=== PATIENT | male | born 1960 | race Caucasian/White ===

== ENCOUNTER 2018-05-17 18:20 | Emergency (ER) | payer MEDICARE ==
[2018-05-17 19:33] LABS: Basophils % (Auto) 0.4 % (0.0-1.8); Eosinophils # (Auto) 0.3 K/mm3 (0.0-0.4); Eosinophils % (Auto) 4.3 % (0.0-4.3); Hemoglobin 15.4 gm/dl (11.8-15.2); Lymphocytes # (Auto) 1.5 K/mm3 (1.2-5.4); Lymphocytes % (Auto) 21.8 % (13.4-35.0); Mean Corpuscular HGB Conc 34 % (32-34); Mean Corpuscular Hemoglobin 31 pg (28-32); Mean Corpuscular Volume 93 fl (84-94); Monocytes # (Auto) 0.4 K/mm3 (0.0-0.8); Monocytes % (Auto) 6.6 % (0.0-7.3); Platelet Count 192 K/mm3 (140-440); Red Blood Count 4.95 M/mm3 (3.65-5.03); Red Cell Distribution Width 14.9 % (13.2-15.2)
[2018-05-17 19:49] LABS: INR 1.17 (0.87-1.13)
[2018-05-17 19:50] LABS: Partial Thromboplastin Time 35.8 Sec. (24.2-36.6)
[2018-05-17 19:59] LABS: BUN/Creatinine Ratio 8; Blood Urea Nitrogen 10 mg/dL (9-20); Calcium 8.8 mg/dL (8.4-10.2); Hemolysis Index 4
[2018-05-17 19:59] LABS: Bilirubin,Urine NEG (Negative); Blood,Urine NEG (Negative); Color,Urine Yellow (Yellow); Protein,Urine <15 mg/dL mg/dL (Negative); Urobilinogen,Urine < 2.0 mg/dL (<2.0)
--- NOTE | 2018-05-17 20:32 | Emergency Department Report ---
HPI - General Chief Complaint: High BP Time Seen by Provider: 05/17/18 19:18 - HPI HPI: 58-year-old male presents to the emergency department via EMS from home with a complaint of having elevated blood pressure "all day" despite his medications. He says that he drank a small amount of water thinking this would help with his hypertension and when it did not he called for EMS. Patient has a slight headache and also complains of some tension to the left arm and leg. He says that he has had this since he had his stroke in October 2015 that didn't leave him with some left-sided deficits and causes him to be unable to ambulate. He is on muscle relaxers for this and took half of one of his diazepam about 2 hours prior to presentation without much relief. He also has a past medical history of atrial fibrillation, hypertension, CHF, hyperlipidemia. 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 high cholesterol - Surgical History Past Surgical History?: Yes Additional Surgical History: PEG tube placement and removal - Social History Smoking Status: Former Smoker Substance Use Type: None - Medications Home Medications: Home Medications Medication Instructions Recorded Confirmed Last Taken Type Carvedilol Phosphate 12.5 mg PO Q12HR 04/10/16 02/15/18 02/14/18 History Aspirin EC [Aspirin Enteric Coated 325 mg PO QDAY #100 tablet 02/08/18 02/15/18 02/14/18 Rx TAB] Furosemide 20 mg PO DAILY #30 02/08/18 02/15/18 02/14/18 Rx Lisinopril [Zestril TAB] 40 mg PO QDAY #30 tablet 02/08/18 02/15/18 02/14/18 Rx cloNIDine [Catapres] 0.2 mg PO BID #60 tablet 02/08/18 02/15/18 02/14/18 Rx hydrALAZINE [Apresoline TAB] 50 mg PO Q8HR #90 tablet 02/08/18 02/15/18 Rx Diazepam Tab [Valium] 5 mg PO QHS PRN #10 tab 03/16/18 Unknown Rx ED Review of Systems ROS: Stated complaint: DIZZINESS/WEAKNESS Other details as noted in HPI Comment: All other systems reviewed and negative Constitutional: denies: chills, fever Eyes: denies: eye pain, eye discharge, vision change ENT: denies: ear pain, throat pain Respiratory: denies: cough, shortness of breath, wheezing Cardiovascular: denies: chest pain, palpitations Gastrointestinal: denies: abdominal pain, nausea, diarrhea Genitourinary: denies: urgency, dysuria Musculoskeletal: myalgia. denies: back pain Skin: denies: rash, lesions Neurological: headache. denies: confusion Physical Exam - Physical Exam Vital Signs: Vital Signs 05/17/18 05/17/18 05/17/18 18:44 18:45 18:49 Temperature 97.5 F L Pulse Rate 78 Respiratory 17 Rate Blood Pressure 147/118 O2 Sat by Pulse 97 98 97 Oximetry 05/17/18 05/17/18 05/17/18 19:00 19:05 19:16 Temperature Pulse Rate 76 78 Respiratory 20 17 22 Rate Blood Pressure 149/94 150/107 O2 Sat by Pulse 99 97 98 Oximetry Physical Exam: GENERAL: The patient is well-developed well-nourished. HENT: Normocephalic. Atraumatic. Patient has moist mucous membranes. EYES: Extraocular motions are intact. Pupils equal reactive to light bilaterally. No nystagmus. NECK: Supple. Trachea is midline. CHEST/LUNGS: Clear to auscultation. There is no respiratory distress noted. HEART/CARDIOVASCULAR: Regular. There is no tachycardia. There is no murmur. ABDOMEN: Abdomen is soft, nontender. Patient has normal bowel sounds. There is no abdominal distention. SKIN: Skin is warm and dry. NEURO: The patient is awake, alert, and oriented. The patient is cooperative. Patient does not appear to have any acute focal neurological deficits. He has some mild dysarthria but says that this is chronic for him. There is some left- sided weakness compared to the right but this is also chronic for this patient from previous CVA. MUSCULOSKELETAL: There is no tenderness or deformity. There is no evidence of acute injury. ED Course Vital Signs 05/17/18 05/17/18 05/17/18 18:44 18:45 18:49 Temperature 97.5 F L Pulse Rate 78 Respiratory 17 Rate Blood Pressure 147/118 O2 Sat by Pulse 97 98 97 Oximetry 05/17/18 05/17/18 05/17/18 19:00 19:05 19:16 Temperature Pulse Rate 76 78 Respiratory 20 17 22 Rate Blood Pressure 149/94 150/107 O2 Sat by Pulse 99 97 98 Oximetry ED Medical Decision Making - Lab Data Result diagrams: 05/17/18 19:20 05/17/18 19:20 - EKG Data -: EKG Interpreted by Mi EKG shows normal: sinus rhythm, axis (left axis deviation), intervals, QRS complexes, ST-T waves (anterior j point elevation, early repolarization) Rate: normal - EKG Data When compared to previous EKG there are: no significant change Interpretation: unchanged when compared t (02/21/18) - Radiology Data Radiology results: report reviewed PROCEDURE: CT HEAD/BRAIN WO CON TECHNIQUE: Computerized tomography of the head was performed without contrast material. HISTORY: Dizziness with hypertension COMPARISON: Prior CT scan of the brain 02/19/2018 FINDINGS: Brain: There is no evidence of intracranial hemorrhage. No parenchymal hemorrhage is seen. No mass lesions or mass effect is identified. No abnormal extra-axial fluid collections or masses are seen. Old lacunar infarcts are again visualized in the anterior limb of the right internal capsule, lateral aspect left basal ganglia lateral aspect left thalamus/posterior limb left internal capsule. There is also an old lacunar infarct in the left periventricular white matter. These findings are stable. There is some decreased density seen in the periventricular white matter without mass effect. This is fairly symmetric and does not exhibit any mass effect consistent with gliosis probably on the basis of microvascular disease or white matter changes of aging. Ventricles: The ventricles, sulcal pattern and fissures are prominent consistent with atrophy. Bones: No evidence of acute fracture. Paranasal sinuses: Large nodular density seen in the right maxillary sinus which is visualized on the prior study suggesting a large mucous retention cyst. There is mild mucosal thickening medially in the left maxillary sinus. Paranasal sinuses otherwise are clear. Mastoid air cells: clear IMPRESSION: Stable exam. There is evidence of atrophy and gliosis as well as old lacunar infarct. No acute intracranial abnormalities are seen. Paranasal sinus disease as described. Transcribed By: DFN Dictated By: RAINE TORRES MD Electronically Authenticated By: RAINE TORRES MD Signed Date/Time: 05/17/182024 - Medical Decision Making Patient presented with the main complaint of uncontrolled and/or elevated blood pressure. When he is pressed further, he does mention some complaint of a left- sided headache and a tension or rigidity to his left arm and left leg. The patient has a previous CVA that left him with some left-sided deficits that were previously listed as hemiparesis. He does have some movement but there is obvious weakness when compared to the right side and the patient says that this is chronic. Patient also has some mild dysarthria but is also chronic for the patient. A CT scan of the head was done secondary to his elevated blood pressure and headache but it appears as a stable examination without any acute bleed, shift, ischemia or any other acute process. Patient's labs were also unremarkable. He was given a single dose of hydralazine as well as a small amount of a muscle relaxer/anxiety medication. On reevaluation the patient is feeling improved and his blood pressure has come down to a much more reasonable if not normal level. He was reevaluated multiple times for multiple hours and has been stable throughout his ED course. The patient appears safe for discharge home and has been encouraged to follow up with his primary care physician. He has been instructed to return to the emergency Department with any worsening of his symptoms are any acute distress. - Differential Diagnosis TIA, Complex Migraine, tension headache, electrolyte abnormalities Critical Care Time: No Critical care attestation.: If time is entered above; I have spent that time in minutes in the direct care of this critically ill patient, excluding procedure time. ED Disposition Clinical Impression: Muscle stiffness HTN (hypertension) Qualifiers: Hypertension type: essential hypertension Qualified Code(s): I10 - Essential ( primary) hypertension Headache Qualifiers: Headache type: unspecified Headache chronicity pattern: unspecified pattern Intractability: not intractable Qualified Code(s): R51 - Headache Disposition: DC-01 TO HOME OR SELFCARE Is pt being admited?: No Condition: Stable Instructions: Acute Headache (ED), Hypertension (ED) Additional Instructions: Please follow-up with your primary care physician in the next few days. Return to the emergency Department with any worsening of your symptoms are any acute distress. Continue with all of your normal medications as previously prescribed. Try and stay away from foods that are high in salt and caffeinated products to help with your blood pressure. Continue keeping a blood pressure log. Referrals: PRIMARY CARE, [Primary Care Provider] - 2-3 Days Time of Disposition: 22:50
[2018-05-17] MEDS: NORMODYNE IV ONE (20:48)
[2018-05-17] MEDS: ATIVAN IV ONE (20:48)
[2018-05-17 23:30] VITALS: BP 127/87
== END 2018-05-17 23:28 | disposition home or self-care (01) ==
LOC: MERGE 18:20 → ED 18:20
DX: I10 Essential (primary) hypertension (principal); R51 Headache; M62.89 Other specified disorders of muscle; J44.9 Chronic obstructive pulmonary disease, unspecified; E78.00 Pure hypercholesterolemia, unspecified; Z87.891 Personal history of nicotine dependence; Z86.73 Personal history of transient ischemic attack (TIA), and cerebral infarction without residual deficits
CPT/HCPCS: 36415; 70450; 80048; 81001; 82962; 84443; 84484; 85025; 85610; 85730; 93005; 93010; 96374; 96375; 99285; J2060

== ENCOUNTER 2018-05-19 06:33 | Emergency (ER) | payer MEDICARE ==
--- NOTE | 2018-05-19 07:22 | Emergency Department Report ---
HPI - General Chief Complaint: High BP Time Seen by Provider: 05/19/18 07:04 - HPI HPI: 58 year-old male presents to the emergency department with a complaint of elevated blood pressure this morning. The patient has a history of hypertension, CHF, hyperlipidemia, paroxysmal atrial fibrillation and a previous CVA with left-sided deficits. Patient is on a total of 6 blood pressure medications which he says he takes compliantly. He woke up this morning at 5 AM and took his lisinopril and shortly afterwards checked his blood pressure and found it to be systolic 210. She then took his Catapres and continue to check his blood pressure but it did not go down for him so he called EMS. He denies any chest pain, headache, nausea, vomiting or any other current physical complaints. He does have some residual left-sided deficits and is currently getting physical therapy but uses a wheelchair for mobility. He says that he has a primary care physician but he usually is only able to see the nurse practitioner and does not feel that they are evaluating his hypertension appropriately. ED Past Medical Hx - Past Medical History Hx Hypertension: Yes Hx CVA: Yes Hx Diabetes: No Hx Renal Disease: No Hx Arthritis: Yes Hx Seizures: No Hx Asthma: No - Surgical History Hx Pacemaker: No - Social History Smoking Status: Unknown if ever smoked ED Review of Systems ROS: Stated complaint: HIGH B/P Other details as noted in HPI Comment: All other systems reviewed and negative Constitutional: denies: chills, fever Eyes: denies: eye pain, eye discharge, vision change ENT: denies: ear pain, throat pain Respiratory: denies: cough, shortness of breath, wheezing Cardiovascular: denies: chest pain, palpitations Gastrointestinal: denies: abdominal pain, nausea, diarrhea Genitourinary: denies: urgency, dysuria Musculoskeletal: denies: back pain, joint swelling, arthralgia Skin: denies: rash, lesions Neurological: denies: headache, weakness, paresthesias Physical Exam - Physical Exam Vital Signs: Vital Signs 05/19/18 07:07 Temperature 97.8 F Pulse Rate 75 Respiratory 16 Rate Blood Pressure 149/88 [Right] O2 Sat by Pulse 98 Oximetry ED Course Vital Signs 05/19/18 07:07 Temperature 97.8 F Pulse Rate 75 Respiratory 16 Rate Blood Pressure 149/88 [Right] O2 Sat by Pulse 98 Oximetry ED Medical Decision Making - Lab Data Result diagrams: 05/19/18 07:25 05/19/18 07:22 Critical care attestation.: If time is entered above; I have spent that time in minutes in the direct care of this critically ill patient, excluding procedure time. ED Disposition Clinical Impression: Hypertension Qualifiers: Hypertension type: essential hypertension Qualified Code(s): I10 - Essential ( primary) hypertension Disposition: - TO HOME OR SELFCARE Is pt being admited?: No Condition: Stable Instructions: Hypertension (ED) Additional Instructions: Please continue with all of your blood pressure medications. I have given you multiple different primary care referrals to establish care and for evaluation of your hypertension and medications. Return to the emergency Department with any worsening of your symptoms or any acute distress. Referrals: GRICELDA SHAH MD [Staff Physician] - 3-5 Days JANA HOUSE MD [Staff Physician] - 3-5 Days DAVID MOSLEY MD [Staff Physician] - 3-5 Days Time of Disposition: 08:27
[2018-05-19 07:27] LABS: Bilirubin,Urine NEG (Negative); Blood,Urine NEG (Negative); Color,Urine Yellow (Yellow); Protein,Urine <15 mg/dL mg/dL (Negative); Urobilinogen,Urine < 2.0 mg/dL (<2.0); WBC,Urine < 1.0 /HPF (0.0-6.0)
[2018-05-19 07:49] LABS: Basophils % (Auto) 0.4 % (0.0-1.8); Eosinophils # (Auto) 0.4 K/mm3 (0.0-0.4); Eosinophils % (Auto) 6.1 % (0.0-4.3); Hemoglobin 14.7 gm/dl (11.8-15.2); Lymphocytes # (Auto) 1.6 K/mm3 (1.2-5.4); Lymphocytes % (Auto) 26.6 % (13.4-35.0); Mean Corpuscular HGB Conc 34 % (32-34); Mean Corpuscular Hemoglobin 32 pg (28-32); Mean Corpuscular Volume 92 fl (84-94); Monocytes # (Auto) 0.5 K/mm3 (0.0-0.8); Monocytes % (Auto) 8.6 % (0.0-7.3); Platelet Count 196 K/mm3 (140-440); Red Blood Count 4.67 M/mm3 (3.65-5.03); Red Cell Distribution Width 14.7 % (13.2-15.2)
[2018-05-19 07:56] LABS: BUN/Creatinine Ratio 8; Blood Urea Nitrogen 10 mg/dL (9-20); Calcium 9.2 mg/dL (8.4-10.2); Hemolysis Index 23
[2018-05-19] MEDS ORDERED: NORVASC PO ONE (08:04)
[2018-05-19 09:38] VITALS: BP 163/88
== END 2018-05-19 08:52 | disposition home or self-care (01) ==
LOC: ED 06:33
DX: I10 Essential (primary) hypertension (principal); M19.90 Unspecified osteoarthritis, unspecified site; Z86.73 Personal history of transient ischemic attack (TIA), and cerebral infarction without residual deficits
CPT/HCPCS: 36415; 80048; 81001; 85025; 99283

== ENCOUNTER 2018-05-20 10:02 | Emergency (ER) | payer MEDICARE ==
--- NOTE | 2018-05-20 10:42 | Emergency Department Report ---
ED General Adult HPI - General Stated complaint: [address] - History of Present Illness Initial comments: This is a 58-year-old male who states that he is in independent living. He states he is able to ambulate and go to the bathroom with the assistance of a walker. This is his third emergency department visit in less than a week. He was seen for elevated blood pressure. He did complain of increasing left sided stiffness so he had a CT of the head obtained on 05/17/2018 with the following report: PROCEDURE: CT HEAD/BRAIN WO CON TECHNIQUE: Computerized tomography of the head was performed without contrast material. HISTORY: Dizziness with hypertension COMPARISON: Prior CT scan of the brain 02/19/2018 FINDINGS: Brain: There is no evidence of intracranial hemorrhage. No parenchymal hemorrhage is seen. No mass lesions or mass effect is identified. No abnormal extra-axial fluid collections or masses are seen. Old lacunar infarcts are again visualized in the anterior limb of the right internal capsule, lateral aspect left basal ganglia lateral aspect left thalamus/posterior limb left internal capsule. There is also an old lacunar infarct in the left periventricular white matter. These findings are stable. There is some decreased density seen in the periventricular white matter without mass effect. This is fairly symmetric and does not exhibit any mass effect consistent with gliosis probably on the basis of microvascular disease or white matter changes of aging. Ventricles: The ventricles, sulcal pattern and fissures are prominent consistent with atrophy. Bones: No evidence of acute fracture. Paranasal sinuses: Large nodular density seen in the right maxillary sinus which is visualized on the prior study suggesting a large mucous retention cyst. There is mild mucosal thickening medially in the left maxillary sinus. Paranasal sinuses otherwise are clear. Mastoid air cells: clear IMPRESSION: Stable exam. There is evidence of atrophy and gliosis as well as old lacunar infarct. No acute intracranial abnormalities are seen. Paranasal sinus disease as described. Thus, the patient was not suspected of having any acute finding on the basis of this CT and his history. His history today appears to be reasonably equivalent to prior visit. He states that his chief complaint is increasing stiffness of the entire left side and problems with sensation. He states he has "never had this before". However, he admits that he has had this very same problem at least for 1 year. He states he has been treated with muscle relaxers for the same before. He may be referring to diazepam which I note that he has previously been prescribed. I cannot identify an acute complaint despite the patient's stating "I have never had this before". He also admits that he is status post a CVA affecting his left side since 2014. He has received physical therapy in the past. He states that since he got Social Security his Medicaid stopped paying for home health care. At this time he states that he has no home health care. In fact, I cannot identify any acute symptom either for his presentation today or on complete review of systems which she essentially denies anything beyond the left scott-corporal sensory and stiffness complaint which apparently is not acute. The patient denies any history of prior DVT involving his left side. He states that he has seen a sustainability project manager at [facility] within the last month for a stress test which she states was normal. -: unknown (very variable history but certainly not acute variable history but non-acute) Location: left (entire left side) - Related Data Home Medications Medication Instructions Recorded Confirmed Last Taken Carvedilol Phosphate 12.5 mg PO Q12HR 04/10/16 02/15/18 02/14/18 Previous Rx's Medication Instructions Recorded Last Taken Type Aspirin EC [Aspirin Enteric Coated 325 mg PO QDAY #100 tablet 02/08/18 02/14/18 Rx TAB] Furosemide 20 mg PO DAILY #30 02/08/18 02/14/18 Rx Lisinopril [Zestril TAB] 40 mg PO QDAY #30 tablet 02/08/18 02/14/18 Rx cloNIDine [Catapres] 0.2 mg PO BID #60 tablet 02/08/18 02/14/18 Rx hydrALAZINE [Apresoline TAB] 50 mg PO Q8HR #90 tablet 02/08/18 02/14/18 Rx Diazepam Tab [Valium] 5 mg PO QHS PRN #10 tab 03/16/18 Unknown Rx Cyclobenzaprine HCl [Flexeril 5 MG 5 mg PO Q12H PRN #14 tablet 05/20/18 Unknown Rx TAB] Allergies Allergy/AdvReac Type Severity Reaction Status Date / Time No Known Allergies Allergy Verified 05/19/18 07:01 ED Review of Systems ROS: Stated complaint: [address] Other details as noted in HPI Constitutional: denies: chills, fever Eyes: denies: eye pain, eye discharge, vision change ENT: denies: ear pain, throat pain Respiratory: denies: cough, shortness of breath, wheezing Cardiovascular: denies: chest pain, palpitations Endocrine: no symptoms reported Gastrointestinal: denies: abdominal pain, nausea, diarrhea Genitourinary: denies: urgency, dysuria Musculoskeletal: other (left sided stiffness). denies: back pain, joint swelling, arthralgia Skin: denies: rash, lesions Neurological: other (chronic decreased sensation left side). 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 high cholesterol - Surgical History Hx Pacemaker: No Additional Surgical History: PEG tube placement and removal - Social History Smoking Status: Former Smoker - Medications Home Medications: Home Medications Medication Instructions Recorded Confirmed Last Taken Type Carvedilol Phosphate 12.5 mg PO Q12HR 04/10/16 02/15/18 02/14/18 History Aspirin EC [Aspirin Enteric Coated 325 mg PO QDAY #100 tablet 02/08/18 02/15/18 02/14/18 Rx TAB] Furosemide 20 mg PO DAILY #30 02/08/18 02/15/18 02/14/18 Rx Lisinopril [Zestril TAB] 40 mg PO QDAY #30 tablet 02/08/18 02/15/18 02/14/18 Rx cloNIDine [Catapres] 0.2 mg PO BID #60 tablet 02/08/18 02/15/18 02/14/18 Rx hydrALAZINE [Apresoline TAB] 50 mg PO Q8HR #90 tablet 02/08/18 02/15/18 Rx Diazepam Tab [Valium] 5 mg PO QHS PRN #10 tab 03/16/18 Unknown Rx Cyclobenzaprine HCl [Flexeril 5 MG 5 mg PO Q12H PRN #14 tablet 05/20/18 Unknown Rx TAB] ED Physical Exam - General General appearance: alert, in no apparent distress - Head Head exam: Present: atraumatic, normocephalic - Eye Eye exam: Present: normal appearance, PERRL, EOMI. Absent: scleral icterus - ENT ENT exam: Present: mucous membranes moist - Neck Neck exam: Present: normal inspection. Absent: tenderness, meningismus - Respiratory Respiratory exam: Present: normal lung sounds bilaterally. Absent: respiratory distress - Cardiovascular Cardiovascular Exam: Present: regular rate, normal rhythm. Absent: systolic murmur, diastolic murmur, rubs, gallop - GI/Abdominal GI/Abdominal exam: Present: soft, normal bowel sounds. Absent: distended, tenderness, guarding, rebound, rigid - Rectal Rectal exam: Present: deferred - Extremities Exam Extremities exam: Present: normal capillary refill, other (patient does have some contracture/atrophy/edema of the left arm and left leg. There is no tenderness to palpation. Vascular exam was intact.). Absent: full ROM, calf tenderness - Back Exam Back exam: Present: normal inspection - Neurological Exam Neurological exam: Present: alert, oriented X3, motor sensory deficit (4 out of 5 left hemiparesis, there is drift both upper and lower, there is some dysmetria on left finger nose. There is chronic decreased sensation of the lumbar and lower left extremity), other. Absent: CN II-XII intact (partial left facial paresis) - Psychiatric Psychiatric exam: Present: normal mood, flat affect - Skin Skin exam: Present: warm, dry, intact, normal color. Absent: rash ED Course Vital Signs 05/20/18 05/20/18 05/20/18 10:16 10:30 10:42 Temperature 98.0 F Pulse Rate 90 Respiratory 20 Rate Blood Pressure 140/65 127/68 O2 Sat by Pulse 94 93 92 Oximetry - Reevaluation(s) Reevaluation #1: The patient's NIH stroke score is 0 pertaining to acute findings. He does have chronic deficits which do not yield any acute score. I do not believe he is candidate for repeat imaging at this time as this has been recently done and his complaints are completely non-acute. 05/20/18 11:22 Reevaluation #2: I will proceed again with a general medical workup of this patient. I will get a case management consult. 05/20/18 11:26 Reevaluation #3: Patient has been seen by case management. They will further explore his case. I did not find any acute indications for admission. The patient is encouraged to follow up with her primary care provider. Will give him some Flexeril for his symptoms of stiffness. 05/20/18 14:24 ED Medical Decision Making - Lab Data Result diagrams: 05/20/18 11:31 05/20/18 11:31 Critical care attestation.: If time is entered above; I have spent that time in minutes in the direct care of this critically ill patient, excluding procedure time. ED Disposition Clinical Impression: Musculoskeletal pain, chronic Hemiparesis Qualifiers: Hemiparesis etiology: late effect of cerebrovascular disease Cerebrovascular disease type: other Hemiparesis laterality: left dominant side Qualified Code(s) : I69.852 - Hemiplegia and hemiparesis following other cerebrovascular disease affecting left dominant side Hypertension Qualifiers: Hypertension type: essential hypertension Qualified Code(s): I10 - Essential ( primary) hypertension Disposition: - TO HOME OR SELFCARE Is pt being admited?: No Does the pt Need Aspirin: No Condition: Stable Instructions: Musculoskeletal Pain (ED), Self Care Measures After a Stroke (ED) , Hypertension (ED) Additional Instructions: As far as can be determined there is no reason for hospitalization right now. You may try Rx Flexeril for your symptoms of stiffness. It is important he follow-up with the primary care provider. Discuss your symptoms with physical therapy that you're already attending at this facility twice a week. Prescriptions: Cyclobenzaprine HCl [Flexeril 5 MG TAB] 5 mg PO Q12H PRN #14 tablet PRN Reason: muscle stiffness Referrals: PRIMARY CARE, [Primary Care Provider] - 2-3 Days Time of Disposition: 14:27
[2018-05-20 10:46] VITALS: BP 127/68
[2018-05-20 11:59] LABS: Basophils % (Auto) 0.5 % (0.0-1.8); Eosinophils # (Auto) 0.2 K/mm3 (0.0-0.4); Lymphocytes # (Auto) 1.6 K/mm3 (1.2-5.4); Lymphocytes % (Auto) 21.2 % (13.4-35.0); Mean Corpuscular HGB Conc 35 % (32-34); Mean Corpuscular Hemoglobin 32 pg (28-32); Mean Corpuscular Volume 91 fl (84-94); Monocytes # (Auto) 0.4 K/mm3 (0.0-0.8); Platelet Count 212 K/mm3 (140-440); Red Blood Count 5.59 M/mm3 (3.65-5.03); Red Cell Distribution Width 14.9 % (13.2-15.2)
[2018-05-20 12:03] LABS: Creatine Kinase MB 1.1 ng/mL (0.0-4.0)
[2018-05-20 12:05] LABS: Alanine Aminotransferase 29 units/L (7-56); Albumin 3.9 g/dL (3.9-5)
[2018-05-20 12:08] LABS: BUN/Creatinine Ratio 11; Blood Urea Nitrogen 11 mg/dL (9-20); Calcium 9.6 mg/dL (8.4-10.2); Hemolysis Index 206
[2018-05-20 12:11] LABS: INR 1.1 (0.87-1.13)
[2018-05-20 12:12] LABS: Partial Thromboplastin Time 32.5 Sec. (24.2-36.6)
[2018-05-20 12:18] LABS: Bilirubin,Direct < 0.2 mg/dL (0-0.2)
[2018-05-20 12:43] LABS: Hematocrit 47.8 % (35.5-45.6); Hemoglobin 15.5 gm/dl (11.8-15.2)
[2018-05-20 13:27] LABS: Bilirubin,Urine NEG (Negative); Blood,Urine NEG (Negative); Color,Urine Yellow (Yellow); Protein,Urine <15 mg/dL mg/dL (Negative)
== END 2018-05-20 16:30 | disposition home or self-care (01) ==
LOC: ED 10:02
DX: I10 Essential (primary) hypertension (principal); I69.852 Hemiplegia and hemiparesis following other cerebrovascular disease affecting left dominant side; M79.1 Myalgia; G89.29 Other chronic pain; M19.90 Unspecified osteoarthritis, unspecified site; J44.9 Chronic obstructive pulmonary disease, unspecified; E78.00 Pure hypercholesterolemia, unspecified; Z87.891 Personal history of nicotine dependence; Z79.82 Long term (current) use of aspirin
CPT/HCPCS: 36415; 80048; 80074; 81001; 82550; 82553; 83735; 83880; 84484; 85025; 85610; 85730

== ENCOUNTER 2018-06-02 11:42 | Emergency (ER) | payer MEDICARE ==
[2018-06-02] MEDS ORDERED: APRESOLINE IM ONE (12:57)
--- NOTE | 2018-06-02 13:00 | Emergency Department Report ---
ED General Adult HPI - General Chief complaint: Dizziness Stated complaint: DIZZINESS/ HIGH BLOOD PRESSURE Time Seen by Provider: 06/02/18 12:39 Source: patient Mode of arrival: Wheelchair Limitations: No Limitations - History of Present Illness Initial comments: Patient is a 58-year-old -[place] male who has past medical history of poorly controlled hypertension as well as CVA with left-sided deficit who is presenting for his fourth visit of this month for elevated blood pressure. Patient saw his primary care physician yesterday and was placed on a new blood pressure medicine. Patient was in physical therapy today as noted the blood pressure was approximately 200 systolic. Patient states that he has some stiffness in his left upper extremity which he states he "gets this when his blood pressure is high". The patient denies chest pain shortness of breath fevers chills nausea vomiting at this time. Patient was seen here last week had a CT of the head which showed stable exam. Review of the several notes from other emergency visits this month patient had some left upper extremity stiffness at that time as well. Patient states he is able to move and speak at his baseline. - Related Data Home Medications Medication Instructions Recorded Confirmed Last Taken Atorvastatin [Lipitor Tab] 40 mg PO QHS 05/20/18 05/20/18 05/19/18 Lisinopril [Zestril TAB] 40 mg PO QAM 05/20/18 05/20/18 05/19/18 Losartan/Hydrochlorothiazide 1 each PO DAILY 05/20/18 05/20/18 05/19/18 [Losartan-Hctz 100-25 mg Tab] Methocarbamol [Robaxin TAB] 750 mg PO BID 05/20/18 05/20/18 Unknown NIFEdipine [] 90 mg PO DAILY 05/20/18 05/20/18 04/19/18 Previous Rx's Medication Instructions Recorded Last Taken Type Furosemide 20 mg PO DAILY #30 02/08/18 05/19/18 Rx cloNIDine [Catapres] 0.2 mg PO BID #60 tablet 02/08/18 05/19/18 Rx hydrALAZINE [Apresoline TAB] 50 mg PO Q8HR #90 tablet 02/08/18 05/19/18 Rx Diazepam Tab [Valium] 5 mg PO QHS PRN #10 tab 03/16/18 05/17/18 Rx Cyclobenzaprine HCl [Flexeril 5 MG 5 mg PO Q12H PRN #14 tablet 05/20/18 Unknown Rx TAB] Ciprofloxacin HCl [Cipro] 500 mg PO BID #14 tablet 06/02/18 Unknown Rx Tamsulosin HCl [Flomax] 0.4 mg PO QHS 30 Days cap.er.24h 06/02/18 Unknown Rx Allergies Allergy/AdvReac Type Severity Reaction Status Date / Time No Known Allergies Allergy Verified 05/19/18 07:01 ED Review of Systems ROS: Stated complaint: DIZZINESS/ HIGH BLOOD PRESSURE Other details as noted in HPI Comment: All other systems reviewed and negative ED Past Medical Hx - Past Medical History Hx Hypertension: Yes Hx CVA: Yes (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 high cholesterol - Surgical History Hx Pacemaker: No Additional Surgical History: PEG tube placement and removal - Social History Smoking Status: Never Smoker Substance Use Type: None - Medications Home Medications: Home Medications Medication Instructions Recorded Confirmed Last Taken Type Furosemide 20 mg PO DAILY #30 02/08/18 05/20/18 05/19/18 Rx cloNIDine [Catapres] 0.2 mg PO BID #60 tablet 02/08/18 05/20/18 05/19/18 Rx hydrALAZINE [Apresoline TAB] 50 mg PO Q8HR #90 tablet 02/08/18 05/20/18 Rx Diazepam Tab [Valium] 5 mg PO QHS PRN #10 tab 03/16/18 05/20/18 05/17/18 Rx Atorvastatin [Lipitor Tab] 40 mg PO QHS 05/20/18 05/20/18 05/19/18 History Cyclobenzaprine HCl [Flexeril 5 MG 5 mg PO Q12H PRN #14 tablet 05/20/18 Unknown Rx TAB] Lisinopril [Zestril TAB] 40 mg PO QAM 05/20/18 05/20/18 05/19/18 History Losartan/Hydrochlorothiazide 1 each PO DAILY 05/20/18 05/20/18 05/19/18 History [Losartan-Hctz 100-25 mg Tab] Methocarbamol [Robaxin TAB] 750 mg PO BID 05/20/18 05/20/18 Unknown History NIFEdipine [] 90 mg PO DAILY 05/20/18 05/20/18 04/19/18 History Ciprofloxacin HCl [Cipro] 500 mg PO BID #14 tablet 06/02/18 Unknown Rx Tamsulosin HCl [Flomax] 0.4 mg PO QHS 30 Days cap.er.24h 06/02/18 Unknown Rx ED Physical Exam - General Limitations: No Limitations General appearance: alert, in no apparent distress - Head Head exam: Present: atraumatic, normocephalic - Eye Eye exam: Present: normal appearance - ENT ENT exam: Present: mucous membranes moist - Neck Neck exam: Present: normal inspection - Respiratory Respiratory exam: Present: normal lung sounds bilaterally. Absent: respiratory distress, wheezes, rales, rhonchi - Cardiovascular Cardiovascular Exam: Present: regular rate, normal rhythm. Absent: systolic murmur, diastolic murmur, rubs, gallop - GI/Abdominal GI/Abdominal exam: Present: soft, normal bowel sounds. Absent: distended, tenderness, guarding, rebound - Rectal Rectal exam: Present: deferred - Extremities Exam Extremities exam: Present: normal inspection - Back Exam Back exam: Present: normal inspection - Neurological Exam Neurological exam: Present: alert, oriented X3, CN II-XII intact, motor sensory deficit (patient has 4 out of 5 weakness to his left upper extremity 3 out of 5 weakness to the left lower extremity. Patient has some mild slurred speech. Both these deficits noted in previous visits.) - Psychiatric Psychiatric exam: Present: normal affect, normal mood - Skin Skin exam: Present: warm, dry, intact, normal color. Absent: rash ED Course Vital Signs 06/02/18 06/02/18 11:56 13:15 Temperature 97.8 F Pulse Rate 116 H 103 H Respiratory 18 Rate Blood Pressure 183/112 164/109 O2 Sat by Pulse 97 Oximetry ED Medical Decision Making - Lab Data Result diagrams: 06/02/18 15:52 06/02/18 15:52 - Medical Decision Making The patient's blood pressure is improving after meds here in the emergency department. After the hydralazine patient became very anxious and was stating that he was having some increased tightness in his left upper extremity which the patient has complained about for several months. Patient then stated that he wanted to try to go to the bathroom and couldn't. Patient had a small amount come out but was continuing to get more more anxious and frustrated that he couldn't urinate. Patient stayed in the bathroom for approximately an hour attempting to urinate. We decided to take the patient to a room to try to just do a straight cath and the patient had approximately 1200 mL of urine were able to drain. Patient states he is feeling much improved afterwards. Patient will be discharged home with Das catheter with urology follow-up patient will follow with his primary doctor regarding his blood pressure medicines. Critical care attestation.: If time is entered above; I have spent that time in minutes in the direct care of this critically ill patient, excluding procedure time. ED Disposition Clinical Impression: Hypertensive urgency, Urinary retention Disposition: DC- TO HOME OR SELFCARE Is pt being admited?: No Does the pt Need Aspirin: No Condition: Stable Instructions: Hypertension (ED), Urinary Retention in Men (ED), Das Catheter Placement and Care (ED) Referrals: PRIMARY CARE, [Primary Care Provider] - 3-5 Days MICHELLE TRACEY MD [Staff Physician] - 3-5 Days Time of Disposition: 17:18
[2018-06-02 13:16] VITALS: BP 164/109
[2018-06-02] MEDS ORDERED: VALIUM PO ONE (13:38)
[2018-06-02 16:09] LABS: Basophils # (Auto) 0.1 K/mm3 (0.0-0.1); Basophils % (Auto) 0.4 % (0.0-1.8); Eosinophils # (Auto) 0.2 K/mm3 (0.0-0.4); Eosinophils % (Auto) 1.3 % (0.0-4.3); Hematocrit 52.4 % (35.5-45.6); Hemoglobin 18.4 gm/dl (11.8-15.2); Lymphocytes # (Auto) 3.6 K/mm3 (1.2-5.4); Mean Corpuscular HGB Conc 35 % (32-34); Mean Corpuscular Hemoglobin 32 pg (28-32); Mean Corpuscular Volume 91 fl (84-94); Monocytes # (Auto) 0.7 K/mm3 (0.0-0.8); Monocytes % (Auto) 4.5 % (0.0-7.3); Platelet Count 282 K/mm3 (140-440); Red Blood Count 5.76 M/mm3 (3.65-5.03); Red Cell Distribution Width 14.6 % (13.2-15.2)
[2018-06-02 16:18] LABS: BUN/Creatinine Ratio 7; Blood Urea Nitrogen 8 mg/dL (9-20); Calcium 9.3 mg/dL (8.4-10.2); Hemolysis Index 10
== END 2018-06-02 17:58 | disposition home or self-care (01) ==
LOC: ED 11:42
DX: R33.9 Retention of urine, unspecified (principal); I10 Essential (primary) hypertension; M19.90 Unspecified osteoarthritis, unspecified site; J44.9 Chronic obstructive pulmonary disease, unspecified; E78.00 Pure hypercholesterolemia, unspecified; Z86.73 Personal history of transient ischemic attack (TIA), and cerebral infarction without residual deficits
CPT/HCPCS: 36415; 51702; 80048; 85025; 93005; 93010; 96372; 99284; J0360

== ENCOUNTER 2018-06-29 18:27 | Emergency (ER) | payer MEDICARE ==
[2018-06-29] MEDS ORDERED: APRESOLINE IV ONE (20:34)
[2018-06-29] MEDS ORDERED: NORMODYNE IV ONE ×2 (20:49→22:04)
--- NOTE | 2018-06-29 22:15 | Emergency Department Report ---
HPI - General Chief Complaint: High BP Time Seen by Provider: 06/29/18 20:11 - HPI HPI: The patient is a 58 male presents for evaluation of elevated blood pressure. Patient states that is instructed to present after he found have elevated blood pressure greater than 200 today. He states he is a symptomatically feels fine. The patient denies fever, neck pain, chest pain, headache, parasthesias, dyspnea , cough, hemoptysis, palpitations, dizziness, syncope, unilateral leg swelling, calf muscle pain. Patient also denies cocaine or other stimulant use, history of DVT or PE, recent immobilization, or history of cancer. 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 high cholesterol - Surgical History Hx Pacemaker: No Additional Surgical History: PEG tube placement and removal - Social History Smoking Status: Never Smoker Substance Use Type: None - Medications Home Medications: Home Medications Medication Instructions Recorded Confirmed Last Taken Type Furosemide 20 mg PO DAILY #30 02/08/18 05/20/18 05/19/18 Rx cloNIDine [Catapres] 0.2 mg PO BID #60 tablet 02/08/18 05/20/18 05/19/18 Rx hydrALAZINE [Apresoline TAB] 50 mg PO Q8HR #90 tablet 02/08/18 05/20/18 Rx diazePAM TAB [Valium] 5 mg PO QHS PRN #10 tab 03/16/18 05/20/18 05/17/18 Rx Atorvastatin [Lipitor Tab] 40 mg PO QHS 05/20/18 05/20/18 05/19/18 History Cyclobenzaprine HCl [Flexeril 5 MG 5 mg PO Q12H PRN #14 tablet 05/20/18 Unknown Rx TAB] Lisinopril [Zestril TAB] 40 mg PO QAM 05/20/18 05/20/18 05/19/18 History Losartan/Hydrochlorothiazide 1 each PO DAILY 05/20/18 05/20/18 05/19/18 History [Losartan-Hctz 100-25 mg Tab] Methocarbamol [Robaxin TAB] 750 mg PO BID 05/20/18 05/20/18 Unknown History NIFEdipine [] 90 mg PO DAILY 05/20/18 05/20/18 04/19/18 History Ciprofloxacin HCl [Cipro] 500 mg PO BID #14 tablet 06/02/18 Unknown Rx Tamsulosin HCl [Flomax] 0.4 mg PO QHS 30 Days cap.er.24h 06/02/18 Unknown Rx ED Review of Systems ROS: Stated complaint: HYPERTENSION Other details as noted in HPI Constitutional: denies: fever ENT: denies: throat or neck pain Respiratory: denies: cough, shortness of breath Cardiovascular: reports chest pain Endocrine: denies unexplained weight loss or gain Gastrointestinal: denies: abdominal pain, nausea Genitourinary: denies: dysuria Musculoskeletal: denies: leg swelling Skin: denies: rash Neurological: denies: headache Hematological/Lymphatic: denies: easy bleeding or easy bruising Psych: denies sadness or hopelessness Physical Exam - Physical Exam Vital Signs: Vital Signs 06/29/18 06/29/18 06/29/18 19:39 19:50 20:56 Temperature 98.5 F Pulse Rate 108 H 98 H Respiratory 16 17 Rate Blood Pressure 187/117 179/102 O2 Sat by Pulse 97 96 Oximetry 06/29/18 21:55 Temperature Pulse Rate 88 Respiratory Rate Blood Pressure 177/103 O2 Sat by Pulse Oximetry Physical Exam: General: well-nourished, well-developed, no acute distress Head: Normocephalic, atraumatic Eyes: normal sclera ENT: Mucous membranes are pale and dry Neck: No neck stiffness, no cervical adenopathy Respiratory: Breath sounds equal bilaterally, no wheezing, rales, or rhonchi Cardio: S1 and S2 present, no murmurs, rubs, gallops, capillary refill is delayed Abdomen: Normoactive bowel sounds, soft abdomen, no rigidity, no guarding or rebound tenderness Chest WALL/Back: No tenderness to palpation of the chest wall, no CVA tenderness with percussion Musc: No pitting edema Skin: No rash Neuro: no facial drooping, normal speech Psych: Normal affect ED Course Vital Signs 06/29/18 06/29/18 06/29/18 19:39 19:50 20:56 Temperature 98.5 F Pulse Rate 108 H 98 H Respiratory 16 17 Rate Blood Pressure 187/117 179/102 O2 Sat by Pulse 97 96 Oximetry 06/29/18 21:55 Temperature Pulse Rate 88 Respiratory Rate Blood Pressure 177/103 O2 Sat by Pulse Oximetry ED Medical Decision Making - Medical Decision Making The patient was seen and examined by myself. The patient is placed on a personnel monitor and continuous pulse ox. On initial evaluation, the patient was found to be in no distress. Evaluation orders were placed. EKG was negative for ST elevation, ST depression, Q waves, or T-wave changes concerning for acute cardiac disease process. The patient is given IV labetalol and IV hydralazine for elevated blood pressure. On reexamination the patient's blood pressure was found to decrease outside of range concerning for hypertensive emergency. The patient is stable for discharge with outpatient follow-up. The patient is given follow-up and return instructions. The patient expressed understanding and agreed with the plan. The patient is discharged in stable condition. Critical care attestation.: If time is entered above; I have spent that time in minutes in the direct care of this critically ill patient, excluding procedure time. ED Disposition Clinical Impression: Hypertensive urgency Disposition: DC-01 TO HOME OR SELFCARE Is pt being admited?: No Does the pt Need Aspirin: No Condition: Stable Instructions: Hypertension (ED), Chronic Hypertension (ED) Referrals: PRIMARY MD ASHTYN [Primary Care Provider] - 3-5 Days [facility] [Outside] - 3-5 Days Time of Disposition: 22:13
[2018-06-30 00:28] VITALS: BP 160/89
== END 2018-06-30 00:45 | disposition home or self-care (01) ==
LOC: ED 18:27
DX: I10 Essential (primary) hypertension (principal); I16.0 Hypertensive urgency; M19.90 Unspecified osteoarthritis, unspecified site; J44.9 Chronic obstructive pulmonary disease, unspecified; E78.00 Pure hypercholesterolemia, unspecified; Z86.73 Personal history of transient ischemic attack (TIA), and cerebral infarction without residual deficits
CPT/HCPCS: 93005; 93010; 96374; 96375; 96376; 99284; J0360

== ENCOUNTER 2019-04-05 10:13 | Outpatient (CLI) | payer MEDICARE ==
[2019-04-05 11:12] LABS: Hematocrit 47.2 % (35.5-45.6); Hemoglobin 16.1 gm/dl (11.8-15.2); Mean Corpuscular HGB Conc 34 % (32-34); Mean Corpuscular Volume 92 fl (84-94); Platelet Count 212 K/mm3 (140-440); Red Blood Count 5.15 M/mm3 (3.65-5.03); Red Cell Distribution Width 14.2 % (13.2-15.2)
[2019-04-05 11:30] LABS: Alanine Aminotransferase 22 units/L (7-56); Albumin 3.9 g/dL (3.9-5); BUN/Creatinine Ratio 8; Blood Urea Nitrogen 9 mg/dL (9-20); Calcium 9.1 mg/dL (8.4-10.2); HDL Cholesterol 44 mg/dL (40-59); Hemolysis Index 3; LDL Cholesterol,Direct 46 mg/dL (50-130)
[2019-04-08 12:56] LABS: Vitamin D, 25-OH, D2 <4 ng/mL
== END 2019-04-05 10:14 | disposition home or self-care (01) ==
LOC: LAB 10:13
PROVIDERS: ATTEND Internal Medicine
DX: Z13.220 Encounter for screening for lipoid disorders (principal); Z13.21 Encounter for screening for nutritional disorder; R73.9 Hyperglycemia, unspecified; I10 Essential (primary) hypertension; J44.9 Chronic obstructive pulmonary disease, unspecified
CPT/HCPCS: 36415; 80053; 80061; 82306; 82607; 83036; 84443; 85027

== ENCOUNTER 2019-06-03 08:47 | Emergency (ER) | payer MEDICARE ==
[2019-06-03] MEDS ORDERED: NACL 0.9% 1000 ML 1,000 ML IV ONE (09:09)
[2019-06-03 09:47] LABS: Basophils % (Auto) 0.3 % (0.0-1.8); Eosinophils # (Auto) 0.1 K/mm3 (0.0-0.4); Eosinophils % (Auto) 1.2 % (0.0-4.3); Hematocrit 49.6 % (35.5-45.6); Hemoglobin 16.7 gm/dl (11.8-15.2); Lymphocytes % (Auto) 14.1 % (13.4-35.0); Mean Corpuscular HGB Conc 34 % (32-34); Mean Corpuscular Volume 92 fl (84-94); Monocytes # (Auto) 0.3 K/mm3 (0.0-0.8); Monocytes % (Auto) 4.7 % (0.0-7.3); Platelet Count 243 K/mm3 (140-440); Red Cell Distribution Width 14.3 % (13.2-15.2)
--- NOTE | 2019-06-03 09:52 | Emergency Department Report ---
ED General Adult HPI - General Chief complaint: High BP Stated complaint: STROKE Time Seen by Provider: 06/03/19 09:04 Source: EMS Mode of arrival: Ambulatory Limitations: No Limitations - History of Present Illness Initial comments: Patient presents to the emergency department with a chief complaint elevated blood pressure. Patient states he woke up at 3:30 this morning and limited his blood pressure he knows that it was elevated. Patient has not taken his blood pressure medicines this morning before checking his blood pressure. Patient also complains of some numbness/tingling in his left leg she states is due to nerve damage in that leg. Patient also has some slurred speech on exam but patient states this is residual from her prior stroke as well as his left upper extremity weakness. Patient denies chest pain, as above, abdominal pain. -: Sudden Severity scale (0 -10): 0 Improves with: none Worsens with: none Associated Symptoms: denies other symptoms Treatments Prior to Arrival: none - Related Data Home Medications Medication Instructions Recorded Confirmed Last Taken Atorvastatin [Lipitor Tab] 40 mg PO QHS 05/20/18 05/20/18 05/19/18 Lisinopril [Zestril TAB] 40 mg PO QAM 05/20/18 05/20/18 05/19/18 Losartan/Hydrochlorothiazide 1 each PO DAILY 05/20/18 05/20/18 05/19/18 [Losartan-Hctz 100-25 mg Tab] NIFEdipine [] 90 mg PO DAILY 05/20/18 05/20/18 04/19/18 methOCARBAMOL [Robaxin TAB] 750 mg PO BID 05/20/18 05/20/18 Unknown Previous Rx's Medication Instructions Recorded Last Taken Type Furosemide 20 mg PO DAILY #30 02/08/18 05/19/18 Rx cloNIDine [Catapres] 0.2 mg PO BID #60 tablet 02/08/18 05/19/18 Rx hydrALAZINE [Apresoline TAB] 50 mg PO Q8HR #90 tablet 02/08/18 05/19/18 Rx diazePAM TAB [Valium] 5 mg PO QHS PRN #10 tab 03/16/18 05/17/18 Rx Cyclobenzaprine HCl [Flexeril 5 MG 5 mg PO Q12H PRN #14 tablet 05/20/18 Unknown Rx TAB] Ciprofloxacin HCl [Cipro] 500 mg PO BID #14 tablet 06/02/18 Unknown Rx Tamsulosin HCl [Flomax] 0.4 mg PO QHS 30 Days cap.er.24h 06/02/18 Unknown Rx Allergies Allergy/AdvReac Type Severity Reaction Status Date / Time No Known Allergies Allergy Verified 05/19/18 07:01 ED Review of Systems ROS: Stated complaint: STROKE Other details as noted in HPI Constitutional: denies: chills, fever Eyes: denies: eye pain, eye discharge, vision change ENT: denies: ear pain, throat pain Respiratory: denies: cough, shortness of breath, wheezing Cardiovascular: denies: chest pain, palpitations Endocrine: no symptoms reported Gastrointestinal: denies: abdominal pain, nausea, diarrhea Genitourinary: denies: urgency, dysuria Musculoskeletal: denies: back pain, joint swelling, arthralgia Skin: denies: rash, lesions Neurological: denies: headache, weakness, paresthesias Psychiatric: denies: anxiety, depression Hematological/Lymphatic: denies: easy bleeding, easy bruising ED Past Medical Hx - Past Medical History Hx Hypertension: Yes Hx CVA: Yes (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 high cholesterol - Surgical History Hx Pacemaker: No Additional Surgical History: PEG tube placement and removal - Social History Smoking Status: Former Smoker Substance Use Type: None - Medications Home Medications: Home Medications Medication Instructions Recorded Confirmed Last Taken Type Furosemide 20 mg PO DAILY #30 02/08/18 05/20/18 05/19/18 Rx cloNIDine [Catapres] 0.2 mg PO BID #60 tablet 02/08/18 05/20/18 05/19/18 Rx hydrALAZINE [Apresoline TAB] 50 mg PO Q8HR #90 tablet 02/08/18 05/20/18 05/19/18 Rx diazePAM TAB [Valium] 5 mg PO QHS PRN #10 tab 03/16/18 05/20/18 05/17/18 Rx Atorvastatin [Lipitor Tab] 40 mg PO QHS 05/20/18 05/20/18 05/19/18 History Cyclobenzaprine HCl [Flexeril 5 MG 5 mg PO Q12H PRN #14 tablet 05/20/18 Unknown Rx TAB] Lisinopril [Zestril TAB] 40 mg PO QAM 05/20/18 05/20/18 05/19/18 History Losartan/Hydrochlorothiazide 1 each PO DAILY 05/20/18 05/20/18 05/19/18 History [Losartan-Hctz 100-25 mg Tab] NIFEdipine [] 90 mg PO DAILY 05/20/18 05/20/18 04/19/18 History methOCARBAMOL [Robaxin TAB] 750 mg PO BID 05/20/18 05/20/18 Unknown History Ciprofloxacin HCl [Cipro] 500 mg PO BID #14 tablet 06/02/18 Unknown Rx Tamsulosin HCl [Flomax] 0.4 mg PO QHS 30 Days cap.er.24h 06/02/18 Unknown Rx ED Physical Exam - General Limitations: No Limitations General appearance: alert, in no apparent distress, other (patient has residual slurred speech from prior CVA) - Head Head exam: Present: atraumatic, normocephalic - Eye Eye exam: Present: normal appearance - ENT ENT exam: Present: mucous membranes dry - Neck Neck exam: Present: normal inspection - Respiratory Respiratory exam: Present: normal lung sounds bilaterally. Absent: respiratory distress - Cardiovascular Cardiovascular Exam: Present: normal rhythm, tachycardia. Absent: systolic murmur, diastolic murmur, rubs, gallop - GI/Abdominal GI/Abdominal exam: Present: soft, normal bowel sounds. Absent: distended, tenderness - Rectal Rectal exam: Present: deferred - Extremities Exam Extremities exam: Present: normal inspection, other (this little pustule weakness residual from prior CVA; patient has 5 out of 5 strength of the left and right lower extremities) - Back Exam Back exam: Present: normal inspection - Neurological Exam Neurological exam: Present: alert, oriented X3, motor sensory deficit (as described above; but the rest of her motor exam is intact as well as sensation). Absent: CN II-XII intact - Psychiatric Psychiatric exam: Present: normal affect, normal mood - Skin Skin exam: Present: warm, dry, intact, normal color. Absent: rash ED Course Vital Signs 06/03/19 06/03/19 06/03/19 08:54 09:00 09:02 Temperature 97.7 F Pulse Rate 108 H 99 H 98 H Respiratory 20 13 30 H Rate Blood Pressure 161/94 156/97 Blood Pressure [Left] O2 Sat by Pulse 96 98 Oximetry 06/03/19 06/03/19 06/03/19 09:08 09:15 09:30 Temperature 97.8 F Pulse Rate 105 H 95 H 98 H Respiratory 15 12 12 Rate Blood Pressure 137/91 148/89 Blood Pressure 161/94 [Left] O2 Sat by Pulse 100 98 99 Oximetry 06/03/19 06/03/19 06/03/19 09:45 10:00 10:02 Temperature Pulse Rate 80 84 Respiratory 21 16 18 Rate Blood Pressure 129/79 128/80 Blood Pressure [Left] O2 Sat by Pulse 96 97 Oximetry 06/03/19 06/03/19 10:15 10:30 Temperature Pulse Rate 81 70 Respiratory 13 17 Rate Blood Pressure 123/82 112/79 Blood Pressure [Left] O2 Sat by Pulse 100 Oximetry ED Medical Decision Making - Lab Data Result diagrams: 06/03/19 09:30 06/03/19 09:30 Lab Results 06/03/19 06/03/19 06/03/19 Range/Units 09:30 09:30 09:30 WBC 6.7 (4.5-11.0) K/mm3 RBC 5.40 H (3.65-5.03) M/mm3 Hgb 16.7 H (11.8-15.2) gm/dl Hct 49.6 H (35.5-45.6) % MCV 92 (84-94) fl MCH 31 (28-32) pg MCHC 34 (32-34) % RDW 14.3 (13.2-15.2) % Plt Count 243 (140-440) K/mm3 Lymph % (Auto) 14.1 (13.4-35.0) % [place] % (Auto) 4.7 (0.0-7.3) % Eos % (Auto) 1.2 (0.0-4.3) % Baso % (Auto) 0.3 (0.0-1.8) % Lymph # 1.0 L (1.2-5.4) K/mm3 [place] # 0.3 (0.0-0.8) K/mm3 Eos # 0.1 (0.0-0.4) K/mm3 Baso # 0.0 (0.0-0.1) K/mm3 Seg Neutrophils % 79.7 H (40.0-70.0) % Seg Neutrophils # 5.4 (1.8-7.7) K/mm3 Sodium 139 (137-145) mmol/L Potassium 3.4 L (3.6-5.0) mmol/L Chloride 102.2 (98-107) mmol/L Carbon Dioxide 25 (22-30) mmol/L Anion Gap 15 mmol/L BUN 8 L (9-20) mg/dL Creatinine 1.1 (0.8-1.5) mg/dL Estimated GFR > 60 ml/min BUN/Creatinine Ratio 7 % Glucose 99 (75-100) mg/dL Calcium 9.0 (8.4-10.2) mg/dL Total Bilirubin 0.60 (0.1-1.2) mg/dL AST 13 (5-40) units/L ALT 28 (7-56) units/L Alkaline Phosphatase 193 H (35-129) units/L Total Protein 7.8 (6.3-8.2) g/dL Albumin 3.8 L (3.9-5) g/dL Albumin/Globulin Ratio 1.0 % Urine Color Straw (Yellow) Urine Turbidity Clear (Clear) Urine pH 7.0 (5.0-7.0) Ur Specific [place] 1.003 (1.003-1.030) Urine Protein <15 mg/dl (Negative) mg/dL Urine Glucose (UA) Neg (Negative) mg/dL Urine Ketones Tr (Negative) mg/dL Urine Blood Neg (Negative) Urine Nitrite Neg (Negative) Urine Bilirubin Neg (Negative) Urine Urobilinogen < 2.0 (<2.0) mg/dL Ur Leukocyte Esterase Neg (Negative) Urine WBC (Auto) < 1.0 (0.0-6.0) /HPF Urine RBC (Auto) 1.0 (0.0-6.0) /HPF - Medical Decision Making Patient's tachycardia resolved with 1 L IV fluids BP also improved during her ED stay to 112/79 discussed results patient Critical care attestation.: If time is entered above; I have spent that time in minutes in the direct care of this critically ill patient, excluding procedure time. ED Disposition Clinical Impression: Hypertension, Dehydration Disposition: DC-01 TO HOME OR SELFCARE Is pt being admited?: No Does the pt Need Aspirin: No Condition: Stable Instructions: Hypertension (ED), Dehydration (ED) Additional Instructions: return if worse Referrals: LAURENT BONDS MD [Primary Care Provider] - 3-5 Days [facility] [Provider Group] - 3-5 Days [facility] [Provider Group] - 3-5 Days Time of Disposition: 11:12
[2019-06-03 09:53] LABS: Bilirubin,Urine NEG (Negative); Blood,Urine NEG (Negative); Color,Urine Straw (Yellow); Protein,Urine <15 mg/dL mg/dL (Negative); Urobilinogen,Urine < 2.0 mg/dL (<2.0)
[2019-06-03 10:00] LABS: WBC,Urine < 1.0 /HPF (0.0-6.0)
[2019-06-03 10:09] LABS: Alanine Aminotransferase 28 units/L (7-56); Albumin 3.8 g/dL (3.9-5); BUN/Creatinine Ratio 7; Blood Urea Nitrogen 8 mg/dL (9-20); Hemolysis Index 13
[2019-06-03 11:58] VITALS: BP 180/95
== END 2019-06-03 11:59 | disposition home or self-care (01) ==
LOC: ED 08:47
DX: I10 Essential (primary) hypertension (principal); E86.0 Dehydration; R20.0 Anesthesia of skin; R47.81 Slurred speech; M19.90 Unspecified osteoarthritis, unspecified site; J44.9 Chronic obstructive pulmonary disease, unspecified; E78.00 Pure hypercholesterolemia, unspecified; Z86.73 Personal history of transient ischemic attack (TIA), and cerebral infarction without residual deficits; Z87.891 Personal history of nicotine dependence; Z79.899 Other long term (current) drug therapy
CPT/HCPCS: 36415; 80053; 81001; 85025; 96360; 99284; J7030

== ENCOUNTER 2019-07-23 09:22 | Outpatient (CLI) | payer MEDICARE ==
[2019-07-26 09:01] LABS: Vitamin D, 25-OH, D2 <4 ng/mL
== END 2019-07-23 09:23 | disposition home or self-care (01) ==
LOC: LAB 09:22
PROVIDERS: ATTEND Internal Medicine
DX: R73.9 Hyperglycemia, unspecified (principal); E55.9 Vitamin D deficiency, unspecified; J44.9 Chronic obstructive pulmonary disease, unspecified; I10 Essential (primary) hypertension
CPT/HCPCS: 36415; 82306; 83036

== ENCOUNTER 2020-05-26 10:19 | Emergency (ER) | payer MEDICARE ==
--- NOTE | 2020-05-26 11:30 | Emergency Department Report ---
Blank Doc - Documentation Documentation: 60-year-old male that presents with left sided weakness, dizziness, and stated feels like his disorientated. HX of stroke exam: left sided weakness noted. Some slurred speech noted. This initial assessment/diagnostic orders/clinical plan/treatment(s) is/are subject to change based on patient's health status, clinical progression and re- assessment by fellow clinical providers in the ED. Further treatment and workup at subsequent clinical providers discretion. Patient/guardians urged not to elope from the ED as their condition may be serious if not clinically assessed and managed. Initial orders include: 1- Patient sent to [facility] for further evaluation and treatment 2- code stroke initiated
--- NOTE | 2020-05-26 12:11 | Emergency Department Report ---
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 Patient was just discharged from the hospital here on April 28 after a 6-day admission. Patient initially presented to the hospital during that admission with altered mental status and was treated as a code stroke/hypertensive emergen cy. Neuro workup unremarkable. As per discharge summary patient was diagnosed with toxic metabolic encephalopathy and rhabdomyolysis. Source of sepsis was unknown and patient refused ID recommendation for LP. 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 Patient was also discharged on multiple blood pressure medications and Lipitor prescriptions. He apparently did not filll any of his prescribed meds since his discharged. Pt states he is only taking clondine twice daily as needed elevated blood pressure. Patient states he checks his blood pressure every at home 2 hrs. I asked patient states he genia ortiz has medications at home so he did not fill the medication as prescribed upon discharge. Pertinent studies: Neuro work-up; -MRI; no acute infarct or acute intra-cranial abnormality -MRA; no flow-limiting stenosis or large vessel occlusion In the intracranial vessels neuro work-up -CT head without contrast; prior ischemic changes no acute abnormality no hemorrhage -Echocardiogram; EF 60 to 65% mild concentric LVH, No PFO -Repeat CT head; no acute abnormality, old infarcts -CTA head; irregularity left middle cerebral artery suggest presence of intracranial atherosclerotic disease, no large vessel occlusion -CTA neck; no hemodynamically significant stenosis of carotids -EEG; grade 4 encephalopathy with delta slow wave activity persisting throughout the entire tracing No evidence of epileptiform discharges Patient also had elevated d-dimer during admission with a CTA chest negative for pulmonary embolism and lower extremity Doppler negative for DVT Patient lives with roomates. States he was expecting home health to come after d/c. As per med rec review patient also received case management consult for home health services. It is documented that patient declined home health services.. Pt seems to have poor understanding of his admission diagnosis and treatment plan. Pt presents with his hospital d/c paperwork. Appears that patient's prescriptions might of been sent to his pharmacy electronically - Related Data Home Medications Medication Instructions Recorded Confirmed Last Taken Aspirin [Adult Aspirin] 81 mg PO ONCE 04/21/20 04/29/20 Unknown Baclofen 20 mg PO TID 04/21/20 04/21/20 Unknown Clopidogrel [Plavix] 75 mg PO QDAY 04/21/20 04/21/20 Unknown Gabapentin 300 mg PO QAM 04/21/20 04/21/20 Unknown Gabapentin 600 mg PO QHS 04/21/20 04/21/20 Unknown tiZANidine [Zanaflex 4mg TAB] 2 mg PO QAM 04/21/20 04/21/20 Unknown tiZANidine [Zanaflex 4mg TAB] 4 mg PO QHS 04/21/20 04/21/20 Unknown traZODone [Desyrel] 100 mg PO QHS 04/21/20 04/21/20 Unknown Previous Rx's Medication Instructions Recorded Last Taken Type AtorvaSTATin [Lipitor] 40 mg PO QHS #30 tablet 04/28/20 Unknown Rx Doxazosin [Cardura] 2 mg PO BID #60 tablet 04/28/20 Unknown Rx Metoprolol [Lopressor TAB] 12.5 mg PO BID #60 tablet 04/28/20 Unknown Rx NIFEdipine XL [Procardia Xl] 30 mg PO Q12HR #60 tablet 04/28/20 Unknown Rx Valacyclovir HCl [Valtrex] 1,000 mg PO TID 10 Days #30 tablet 04/28/20 Unknown Rx Valsartan [Diovan] 160 mg PO BID #60 tablet 04/28/20 Unknown Rx Allergies Allergy/AdvReac Type Severity Reaction Status Date / Time No Known Allergies Allergy Verified 05/19/18 07:01 ED Review of Systems ROS: Stated complaint: LEFT SIDED WEAKNESS Other details as noted in HPI Comment: All other systems reviewed and negative ED Past Medical Hx - Past Medical History Previous Medical History?: Yes Hx Hypertension: Yes Hx CVA: Yes (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 high cholesterol - Surgical History Past Surgical History?: Yes Hx Pacemaker: No Additional Surgical History: PEG tube placement and removal - Social History Smoking Status: Unknown if ever smoked Substance Use Type: None - Medications Home Medications: Home Medications Medication Instructions Recorded Confirmed Last Taken Type Aspirin [Adult Aspirin] 81 mg PO ONCE 04/21/20 04/29/20 Unknown History Baclofen 20 mg PO TID 04/21/20 04/21/20 Unknown History Clopidogrel [Plavix] 75 mg PO QDAY 04/21/20 04/21/20 Unknown History Gabapentin 300 mg PO QAM 04/21/20 04/21/20 Unknown History Gabapentin 600 mg PO QHS 04/21/20 04/21/20 Unknown History tiZANidine [Zanaflex 4mg TAB] 2 mg PO QAM 04/21/20 04/21/20 Unknown History tiZANidine [Zanaflex 4mg TAB] 4 mg PO QHS 04/21/20 04/21/20 Unknown History traZODone [Desyrel] 100 mg PO QHS 04/21/20 04/21/20 Unknown History AtorvaSTATin [Lipitor] 40 mg PO QHS #30 tablet 04/28/20 Unknown Rx Doxazosin [Cardura] 2 mg PO BID #60 tablet 04/28/20 Unknown Rx Metoprolol [Lopressor TAB] 12.5 mg PO BID #60 tablet 04/28/20 Unknown Rx NIFEdipine XL [Procardia Xl] 30 mg PO Q12HR #60 tablet 04/28/20 Unknown Rx Valacyclovir HCl [Valtrex] 1,000 mg PO TID 10 Days #30 tablet 04/28/20 Unknown Rx Valsartan [Diovan] 160 mg PO BID #60 tablet 04/28/20 Unknown Rx ED Physical Exam - General Limitations: No Limitations - Other Other exam information: General: No acute distress Head: Atraumatic Eyes: normal appearance ENT: Moist mucous membranes Neck: Normal appearance, no midline tenderness Chest: Clear to auscultation bilaterally CV: Regular rate and rhythm Abdomen: Soft, normal bowel sounds, nontender, nondistended, no rebound or guarding Back: Normal inspection Extremity: Bilateral pitting edema lower extremities and feet right greater than left. No calf tenderness, erythema, or warmth full range of motion Neuro: Alert O x 3, slurred speech, left arm and left leg weakness 4/5, right sided upper lower extremity strength 5/5 strength Psych: Appropriate behavior Skin: No rash ED Course Vital Signs 05/26/20 05/26/20 05/26/20 10:27 12:41 13:37 Temperature 98.7 F Pulse Rate 91 H 74 60 Respiratory 20 18 Rate Blood Pressure 188/99 175/89 Blood Pressure 179/93 [Left] O2 Sat by Pulse 97 100 Oximetry 05/26/20 05/26/20 14:12 14:29 Temperature Pulse Rate 68 64 Respiratory 14 Rate Blood Pressure 175/89 Blood Pressure 170/92 [Left] O2 Sat by Pulse 100 Oximetry ED Medical Decision Making - Lab Data Result diagrams: 05/26/20 11:49 05/26/20 11:49 Lab Results 05/26/20 05/26/20 05/26/20 Range/Units 10:39 11:49 11:49 WBC 6.0 (4.5-11.0) K/mm3 RBC 4.87 (3.65-5.03) M/mm3 Hgb 15.3 H (11.8-15.2) gm/dl Hct 45.7 H (35.5-45.6) % MCV 94 (84-94) fl MCH 31 (28-32) pg MCHC 34 (32-34) % RDW 15.0 (13.2-15.2) % Plt Count 191 (140-440) K/mm3 Lymph % (Auto) 19.9 (13.4-35.0) % [place]ardo % (Auto) 5.9 (0.0-7.3) % Eos % (Auto) 3.1 (0.0-4.3) % Baso % (Auto) 0.5 (0.0-1.8) % Lymph # 1.2 (1.2-5.4) K/mm3 F[place]ardo # 0.4 (0.0-0.8) K/mm3 Eos # 0.2 (0.0-0.4) K/mm3 Baso # 0.0 (0.0-0.1) K/mm3 Seg Neutrophils % 70.6 H (40.0-70.0) % Seg Neutrophils # 4.2 (1.8-7.7) K/mm3 PT 16.0 H (12.2-14.9) Sec. INR 1.26 H (0.87-1.13) APTT 31.8 (24.2-36.6) Sec. Thrombin Time 15.2 (15.1-19.6) Sec. Sodium (137-145) mmol/L Potassium (3.6-5.0) mmol/L Chloride (98-107) mmol/L Carbon Dioxide (22-30) mmol/L Anion Gap mmol/L BUN (9-20) mg/dL Creatinine (0.8-1.5) mg/dL Estimated GFR ml/min BUN/Creatinine Ratio % Glucose (75-100) mg/dL POC Glucose 95 (70-105) Calcium (8.4-10.2) mg/dL Total Bilirubin (0.1-1.2) mg/dL AST (5-40) units/L ALT (7-56) units/L Alkaline Phosphatase (35-129) units/L Total Creatine Kinase (55-170) units/L CK-MB (CK-2) (0.0-4.0) ng/mL CK-MB (CK-2) Rel Index (0-4) Troponin T (0.00-0.029) ng/mL NT-Pro-B Natriuret Pep (0-900) pg/mL Total Protein (6.3-8.2) g/dL Albumin (3.9-5) g/dL Albumin/Globulin Ratio % Urine Color (Yellow) Urine Turbidity (Clear) Urine pH (5.0-7.0) Ur Specific Hart[place] (1.003-1.030) Urine Protein (Negative) mg/dL Urine Glucose (UA) (Negative) mg/dL Urine Ketones (Negative) mg/dL Urine Blood (Negative) Urine Nitrite (Negative) Urine Bilirubin (Negative) Urine Urobilinogen (<2.0) mg/dL Ur Leukocyte Esterase (Negative) Urine WBC (Auto) (0.0-6.0) /HPF Urine RBC (Auto) (0.0-6.0) /HPF U Epithel Cells (Auto) (0-13.0) /HPF Urine Opiates Screen Urine Methadone Screen Ur Barbiturates Screen Ur Phencyclidine Scrn Ur Amphetamines Screen U Benzodiazepines Scrn Urine Cocaine Screen U Marijuana (THC) Screen Drugs of Abuse Note 05/26/20 05/26/20 05/26/20 Range/Units 11:49 Unknown Unknown WBC (4.5-11.0) K/mm3 RBC (3.65-5.03) M/mm3 Hgb (11.8-15.2) gm/dl Hct (35.5-45.6) % MCV (84-94) fl MCH (28-32) pg MCHC (32-34) % RDW (13.2-15.2) % Plt Count (140-440) K/mm3 Lymph % (Auto) (13.4-35.0) % [place] % (Auto) (0.0-7.3) % Eos % (Auto) (0.0-4.3) % Baso % (Auto) (0.0-1.8) % Lymph # (1.2-5.4) K/mm3 [place] # (0.0-0.8) K/mm3 Eos # (0.0-0.4) K/mm3 Baso # (0.0-0.1) K/mm3 Seg Neutrophils % (40.0-70.0) % Seg Neutrophils # (1.8-7.7) K/mm3 PT (12.2-14.9) Sec. INR (0.87-1.13) APTT (24.2-36.6) Sec. Thrombin Time (15.1-19.6) Sec. Sodium 141 (137-145) mmol/L Potassium 3.8 (3.6-5.0) mmol/L Chloride 104.4 (98-107) mmol/L Carbon Dioxide 24 (22-30) mmol/L Anion Gap 16 mmol/L BUN 8 L (9-20) mg/dL Creatinine 1.1 (0.8-1.5) mg/dL Estimated GFR > 60 ml/min BUN/Creatinine Ratio 7 % Glucose 99 (75-100) mg/dL POC Glucose (70-105) Calcium 9.1 (8.4-10.2) mg/dL Total Bilirubin 0.50 (0.1-1.2) mg/dL AST 13 (5-40) units/L ALT 11 (7-56) units/L Alkaline Phosphatase 108 (35-129) units/L Total Creatine Kinase 44 L (55-170) units/L CK-MB (CK-2) < 1.0 (0.0-4.0) ng/mL CK-MB (CK-2) Rel Index 2.2 (0-4) Troponin T < 0.010 (0.00-0.029) ng/mL NT-Pro-B Natriuret Pep 175.9 (0-900) pg/mL Total Protein 7.7 (6.3-8.2) g/dL Albumin 3.7 L (3.9-5) g/dL Albumin/Globulin Ratio 0.9 % Urine Color Straw (Yellow) Urine Turbidity Clear (Clear) Urine pH 8.0 H (5.0-7.0) Ur Specific [place] 1.005 (1.003-1.030) Urine Protein <15 mg/dl (Negative) mg/dL Urine Glucose (UA) Neg (Negative) mg/dL Urine Ketones Neg (Negative) mg/dL Urine Blood Neg (Negative) Urine Nitrite Neg (Negative) Urine Bilirubin Neg (Negative) Urine Urobilinogen < 2.0 (<2.0) mg/dL Ur Leukocyte Esterase Neg (Negative) Urine WBC (Auto) < 1.0 (0.0-6.0) /HPF Urine RBC (Auto) 1.0 (0.0-6.0) /HPF U Epithel Cells (Auto) < 1.0 (0-13.0) /HPF Urine Opiates Screen Presumptive negative Urine Methadone Screen Presumptive negative Ur Barbiturates Screen Presumptive negative Ur Phencyclidine Scrn Presumptive negative Ur Amphetamines Screen Presumptive negative U Benzodiazepines Scrn Presumptive negative Urine Cocaine Screen Presumptive negative U Marijuana (THC) Screen Presumptive negative Drugs of Abuse Note Disclamer - EKG Data -: EKG Interpreted by Fl EKG shows normal: sinus rhythm, ST-T waves (no stemi) Rate: normal (68) - EKG Data When compared to previous EKG there are: no significant change - Radiology Data Radiology results: report reviewed DUPLEX DOPPLER LOWER EXTREMITY VEINS, BILATERAL INDICATION / CLINICAL INFOR MATION: b/l leg edema. TECHNIQUE: Duplex doppler imaging was performed through the veins of both lower extremities using venous compression and other maneuvers. COMPARISON: None available. FINDINGS: RIGHT COMMON FEMORAL VEIN: Negative. RIGHT FEMORAL VEIN: Negative. RIGHT POPLITEAL VEIN: Negative. RIGHT CALF VEINS: Negative. LEFT COMMON FEMORAL VEIN: Negative. LEFT FEMORAL VEIN: Negative. LEFT POPLITEAL VEIN: Negative. LEFT CALF VEINS: Negative. ADDITIONAL FINDINGS: None. IMPRESSION: 1. No sonographic evidence for DVT in either lower extremity. CHEST 1 VIEW 05/26/2020 11:48 AM INDICATION / CLINICAL INFORMATION: leg edema/dizzy. COMPARISON: 04/21/20 FINDINGS: SUPPORT DEVICES: None. HEART / MEDIASTINUM: No significant abnormality. LUNGS / PLEURA: No significant pulmonary or pleural abnormality. No pneumothorax. ADDITIONAL FINDINGS: No significant additional findings. IMPRESSION: 1. No acute findings. No change. CT BRAIN: 05/26/2020 INDICATION / CLINICAL INFORMATION: Stroke symptoms. COMPARISON: 05/23/2020 FINDINGS: BRAIN/INTRACRANIAL STRUCTURES: Unenhanced CT images of the brain were obtained compared to the prior exam from 05/23/2020. There is been no change. There is no evidence of acute abnormality. Diffuse cerebral atrophy and chronic white matter hypoattenuation is present in the cerebral hemispheric white matter. There is evidence of old lacunar changes in the basal ganglia bilaterally. There is no evidence of acute superimposed ischemic injury, hemorrhage, or mass. There are no abnormal extra-axial fluid collections. EXTRACRANIAL STRUCTURES: Unremarkable. IMPRESSION: No acute abnormality. Stable chronic and age-related changes - Medical Decision Making Patient only complaint today is lightheadedness with some nausea without vomiting or pain. ED work-up unremarkable. Patient had extensive neurologic work-up last month, negative COVID test, negative bilateral Dopplers and CTA chest for pulmonary embolism. Patient also complains of worsening lower extremity edema. DVT study is still negative today and patient does not have signs of heart failure, liver failure, or kidney failure. Patient apparently did not fill the prescribed medications because he already had medications at home that he takes. As per case management patient also declined home health services and stated that he wanted hospice care. Patient also requested OT/PT which made him not qualify for hospice care. Apparently as of Tuesday the patient's case has been referred to her home health care services. Case management verifying that patient has a pending referral in place. Patient did receive some of his recently prescribed medications for 1 month ago however, if patient is unwilling to take them and expresses concerns about interactions with his other home medications then he will be discharged to continue his current medications and follow-up with primary care doctor for further management of chronic hypertension and leg edema. Patient never filled the prescribed Valtrex which was recommended by ID to cover for herpes meningitis since he refused LP during last month's admission. At this time patient has no signs of fever, sepsis, or infection and therefore will not be represcribed. Patient was provided several of his BP medications that were recommended for home use 1 month ago Critical Care Time: No Critical care attestation.: If time is entered above; I have spent that time in minutes in the direct care of this critically ill patient, excluding procedure time. ED Disposition Clinical Impression: Chronic hypertension, Bilateral edema of lower extremity, History of CVA with residual deficit Disposition: DC-01 TO HOME OR SELFCARE Is pt being admited?: No Does the pt Need Aspirin: No Condition: Stable Instructions: Leg Edema (ED), Hypertension (ED) Additional Instructions: Continue your current medications as prescribed. Follow-up with your doctor to discuss whether or not you should continue current medications or fill the blood pressure medications prescribed 1 month ago. Return if symptoms worsen as indicated by your discharge instructions. Home health services should be reaching out to you to establish care Referrals: PRIMARY CAREMD [Primary Care Provider] - 3-5 Days
[2020-05-26] MEDS ORDERED: NIFEdipine XL 30 MG TAB PO ONE (12:20)
[2020-05-26] MEDS ORDERED: DOXAZOSIN 1 MG TAB PO ONE (12:20)
[2020-05-26 12:21] LABS: Basophils % (Auto) 0.5 % (0.0-1.8); Eosinophils # (Auto) 0.2 K/mm3 (0.0-0.4); Eosinophils % (Auto) 3.1 % (0.0-4.3); Hematocrit 45.7 % (35.5-45.6); Hemoglobin 15.3 gm/dl (11.8-15.2); Lymphocytes # (Auto) 1.2 K/mm3 (1.2-5.4); Lymphocytes % (Auto) 19.9 % (13.4-35.0); Mean Corpuscular HGB Conc 34 % (32-34); Mean Corpuscular Volume 94 fl (84-94); Monocytes # (Auto) 0.4 K/mm3 (0.0-0.8); Monocytes % (Auto) 5.9 % (0.0-7.3); Platelet Count 191 K/mm3 (140-440); Red Blood Count 4.87 M/mm3 (3.65-5.03)
[2020-05-26] MEDS ORDERED: VALSARTAN 160MG TAB PO ONE (12:28)
[2020-05-26 12:32] LABS: Creatine Kinase MB < 1.0 ng/mL (0.0-4.0)
[2020-05-26 12:34] LABS: Alanine Aminotransferase 11 units/L (7-56); Albumin 3.7 g/dL (3.9-5); BUN/Creatinine Ratio 7; Blood Urea Nitrogen 8 mg/dL (9-20); Calcium 9.1 mg/dL (8.4-10.2); Hemolysis Index 13
[2020-05-26 12:39] LABS: INR 1.26 (0.87-1.13)
[2020-05-26 12:41] LABS: Partial Thromboplastin Time 31.8 Sec. (24.2-36.6)
[2020-05-26 12:44] LABS: Thrombin Time 15.2 Sec. (15.1-19.6)
--- NOTE | 2020-05-26 12:56 | XRay Report ---
CHEST 1 VIEW 05/26/2020 11:48 AM INDICATION / CLINICAL INFORMATION: leg edema/dizzy. COMPARISON: 04/21/20 FINDINGS: SUPPORT DEVICES: None. HEART / MEDIASTINUM: No significant abnormality. LUNGS / PLEURA: No significant pulmonary or pleural abnormality. No pneumothorax. ADDITIONAL FINDINGS: No significant additional findings. IMPRESSION: 1. No acute findings. No change. Signer Name: Ahmet Millard MD Signed: 05/26/2020 12:51 PM Workstation Name: [id number]
--- NOTE | 2020-05-26 13:37 | Vascular Lab Report ---
DUPLEX DOPPLER LOWER EXTREMITY VEINS, BILATERAL INDICATION / CLINICAL INFORMATION: b/l leg edema. TECHNIQUE: Duplex doppler imaging was performed through the veins of both lower extremities using venous herb amara and other maneuvers. COMPARISON: None available. FINDINGS: RIGHT COMMON FEMORAL VEIN: Negative. RIGHT FEMORAL VEIN: Negative. RIGHT POPLITEAL VEIN: Negative. RIGHT CALF VEINS: Negative. LEFT COMMON FEMORAL VEIN: Negative. LEFT FEMORAL VEIN: Negative. LEFT POPLITEAL VEIN: Negative. LEFT CALF VEINS: Negative. ADDITIONAL FINDINGS: None. IMPRESSION: 1. No sonographic evidence for DVT in either lower extremity. Signer Name: Josue Pace MD Signed: 05/26/2020 1:33 PM Workstation Name: [id number]
[2020-05-26 14:30] VITALS: BP 170/92
--- NOTE | 2020-05-26 14:37 | Cat Scan Report ---
CT BRAIN: 05/26/2020 INDICATION / CLINICAL INFORMATION: Stroke symptoms. COMPARISON: 05/23/2020 FINDINGS: BRAIN/INTRACRANIAL STRUCTURES: Unenhanced CT images of the brain were obtained compared to the prior exam from 05/23/2020. There is been no change. There is no evidence of acute abnormality. Diffuse cerebral atrophy and chronic white matter hypoatte nuation is present in the cerebral hemispheric white matter. There is evidence of old lacunar changes in the basal ganglia bilaterally. There is no evidence of acute superimposed ischemic injury, hemorrhage, or mass. There are no abnorma l extra-axial fluid collections. EXTRACRANIAL STRUCTURES: Unremarkable. IMPRESSION: No acute abnormality. Stable chronic and age-related changes. All CT scans at this location are performed using dose reduction to ALARA by means of automated expos ure control. Signer Name: Kael Zaragoza MD Signed: 05/26/2020 2:33 PM Workstation Name: [id number]
[2020-05-26 15:52] LABS: Amphetamine Screen,Urine PRESUMPTIVE NEGATIVE; Benzodiazepines Screen,Urine PRESUMPTIVE NEGATIVE; Cannabinoid Screen,Urine PRESUMPTIVE NEGATIVE; Cocaine Screen,Urine PRESUMPTIVE NEGATIVE; Methadone Screen,Urine PRESUMPTIVE NEGATIVE; Opiate Screen,Urine PRESUMPTIVE NEGATIVE
[2020-05-26 16:28] LABS: Bilirubin,Urine NEG (Negative); Blood,Urine NEG (Negative); Color,Urine Straw (Yellow); Protein,Urine <15 mg/dL mg/dL (Negative); Urobilinogen,Urine < 2.0 mg/dL (<2.0); WBC,Urine < 1.0 /HPF (0.0-6.0)
== END 2020-05-26 17:48 | disposition home or self-care (01) ==
LOC: ED 10:19
DX: I10 Essential (primary) hypertension (principal); R60.0 Localized edema; Z86.73 Personal history of transient ischemic attack (TIA), and cerebral infarction without residual deficits; M19.90 Unspecified osteoarthritis, unspecified site; J44.9 Chronic obstructive pulmonary disease, unspecified; Z98.890 Other specified postprocedural states; Z79.82 Long term (current) use of aspirin; Z79.899 Other long term (current) drug therapy
CPT/HCPCS: 36415; 70450; 71045; 80053; 80307; 81001; 82550; 82553; 82962; 83880; 84484; 85025; 85610; 85670; 85730; 93005; 93970

== ENCOUNTER 2020-06-28 16:58 | Emergency (ER) | payer MEDICARE ==
[2020-06-28] MEDS ORDERED: FUROSEMIDE 40 MG/4 ML INJ IV ONE (22:04)
--- NOTE | 2020-06-28 22:29 | XRay Report ---
CHEST 1 VIEW INDICATION: sob,m leg swelling. COMPARISON: 05/26/2020 FINDINGS: Support devices: None. Heart: Normal. Lungs/Pleura: No acute pulmonary or pleural findings. IMPRESSION: 1. No acute findings. Signer Name: Logan Puente MD Signed: 06/28/2020 10:25 PM Workstation Name: [id number]
[2020-06-28 22:54] LABS: Basophils # (Auto) 0.1 K/mm3 (0.0-0.1); Basophils % (Auto) 0.9 % (0.0-1.8); Eosinophils # (Auto) 0.2 K/mm3 (0.0-0.4); Eosinophils % (Auto) 2.4 % (0.0-4.3); Hematocrit 44.3 % (35.5-45.6); Hemoglobin 15.2 gm/dl (11.8-15.2); Lymphocytes # (Auto) 1.9 K/mm3 (1.2-5.4); Mean Corpuscular HGB Conc 34 % (32-34); Mean Corpuscular Volume 92 fl (84-94); Monocytes # (Auto) 0.5 K/mm3 (0.0-0.8); Monocytes % (Auto) 5.9 % (0.0-7.3); Platelet Count 201 K/mm3 (140-440); Red Blood Count 4.81 M/mm3 (3.65-5.03); Red Cell Distribution Width 14.1 % (13.2-15.2)
[2020-06-28 23:09] LABS: BUN/Creatinine Ratio 7; Blood Urea Nitrogen 8 mg/dL (9-20); Calcium 9.1 mg/dL (8.4-10.2); Hemolysis Index 21
--- NOTE | 2020-06-28 23:43 | Emergency Department Report ---
ED General Adult HPI - General Chief complaint: Extremity Problem,Nontraumatic Stated complaint: HYPERTENSION Time Seen by Provider: 06/28/20 22:04 Source: patient Mode of arrival: Wheelchair Limitations: No Limitations - History of Present Illness Initial comments: Patient is a 60-year-old F [place] male with a history of stroke who is presenting with leg swelling. States his legs have been more swollen over the last 2 to 3 weeks. He states he has occasional shortness of breath. He does have a prescription for Lasix but but has not been taking it. He denies any cough cold congestion at this time. - Related Data Home Medications Medication Instructions Recorded Confirmed Last Taken Aspirin [Adult Aspirin] 81 mg PO ONCE 04/21/20 04/29/20 Unknown Baclofen 20 mg PO TID 04/21/20 04/21/20 Unknown Clopidogrel [Plavix] 75 mg PO QDAY 04/21/20 04/21/20 Unknown Gabapentin 300 mg PO QAM 04/21/20 04/21/20 Unknown Gabapentin 600 mg PO QHS 04/21/20 04/21/20 Unknown tiZANidine [Zanaflex 4mg TAB] 2 mg PO QAM 04/21/20 04/21/20 Unknown tiZANidine [Zanaflex 4mg TAB] 4 mg PO QHS 04/21/20 04/21/20 Unknown traZODone [Desyrel] 100 mg PO QHS 04/21/20 04/21/20 Unknown Previous Rx's Medication Instructions Recorded Last Taken Type AtorvaSTATin [Lipitor] 40 mg PO QHS #30 tablet 04/28/20 Unknown Rx Doxazosin [Cardura] 2 mg PO BID #60 tablet 04/28/20 Unknown Rx Metoprolol [Lopressor TAB] 12.5 mg PO BID #60 tablet 04/28/20 Unknown Rx NIFEdipine XL [Procardia Xl] 30 mg PO Q12HR #60 tablet 04/28/20 Unknown Rx Valacyclovir HCl [Valtrex] 1,000 mg PO TID 10 Days #30 tablet 04/28/20 Unknown Rx Valsartan [Diovan] 160 mg PO BID #60 tablet 04/28/20 Unknown Rx Furosemide [Lasix] 20 mg PO QDAY #14 tablet 06/28/20 Unknown Rx Allergies Allergy/AdvReac Type Severity Reaction Status Date / Time No Known Allergies Allergy Verified 05/19/18 07:01 ED Review of Systems ROS: Stated complaint: HYPERTENSION Other details as noted in HPI Comment: All other systems reviewed and negative ED Past Medical Hx - Past Medical History Previous Medical History?: Yes Hx Hypertension: Yes Hx CVA: Yes (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 high cholesterol - Surgical History Past Surgical History?: Yes Hx Pacemaker: No Additional Surgical History: PEG tube placement and removal - Social History Smoking Status: Unknown if ever smoked Substance Use Type: None - Medications Home Medications: Home Medications Medication Instructions Recorded Confirmed Last Taken Type Aspirin [Adult Aspirin] 81 mg PO ONCE 04/21/20 04/29/20 Unknown History Baclofen 20 mg PO TID 04/21/20 04/21/20 Unknown History Clopidogrel [Plavix] 75 mg PO QDAY 04/21/20 04/21/20 Unknown History Gabapentin 300 mg PO QAM 04/21/20 04/21/20 Unknown History Gabapentin 600 mg PO QHS 04/21/20 04/21/20 Unknown History tiZANidine [Zanaflex 4mg TAB] 2 mg PO QAM 04/21/20 04/21/20 Unknown History tiZANidine [Zanaflex 4mg TAB] 4 mg PO QHS 04/21/20 04/21/20 Unknown History traZODone [Desyrel] 100 mg PO QHS 04/21/20 04/21/20 Unknown History AtorvaSTATin [Lipitor] 40 mg PO QHS #30 tablet 04/28/20 Unknown Rx Doxazosin [Cardura] 2 mg PO BID #60 tablet 04/28/20 Unknown Rx Metoprolol [Lopressor TAB] 12.5 mg PO BID #60 tablet 04/28/20 Unknown Rx NIFEdipine XL [Procardia Xl] 30 mg PO Q12HR #60 tablet 04/28/20 Unknown Rx Valacyclovir HCl [Valtrex] 1,000 mg PO TID 10 Days #30 tablet 04/28/20 Unknown Rx Valsartan [Diovan] 160 mg PO BID #60 tablet 04/28/20 Unknown Rx Furosemide [Lasix] 20 mg PO QDAY #14 tablet 06/28/20 Unknown Rx ED Physical Exam - General Limitations: No Limitations General appearance: alert, in no apparent distress - Head Head exam: Present: atraumatic, normocephalic - Eye Eye exam: Present: normal appearance - ENT ENT exam: Present: mucous membranes moist - Neck Neck exam: Present: normal inspection - Respiratory Respiratory exam: Present: normal lung sounds bilaterally. Absent: respiratory distress, wheezes, rales, rhonchi - Cardiovascular Cardiovascular Exam: Present: regular rate, normal rhythm, normal heart sounds. Absent: systolic murmur, diastolic murmur, rubs, gallop - GI/Abdominal GI/Abdominal exam: Present: soft, normal bowel sounds. Absent: distended, tenderness, guarding, rebound - Rectal Rectal exam: Present: deferred - Extremities Exam Extremities exam: Present: normal inspection, other (Patient with 3+ edema to the bilateral lower extremities up to the level of the distal thigh) - Back Exam Back exam: Present: normal inspection - Neurological Exam Neurological exam: Present: alert, oriented X3 - Psychiatric Psychiatric exam: Present: normal affect, normal mood - Skin Skin exam: Present: warm, dry, intact, normal color. Absent: rash ED Course Vital Signs 06/28/20 06/28/20 17:28 17:35 Temperature 97.9 F Pulse Rate 88 Respiratory 20 Rate Blood Pressure 158/94 ED Medical Decision Making - Lab Data Result diagrams: 06/28/20 22:41 06/28/20 22:41 Lab Results 06/28/20 06/28/20 Range/Units 22:41 22:41 WBC 7.7 (4.5-11.0) K/mm3 RBC 4.81 (3.65-5.03) M/mm3 Hgb 15.2 (11.8-15.2) gm/dl Hct 44.3 (35.5-45.6) % MCV 92 (84-94) fl MCH 32 (28-32) pg MCHC 34 (32-34) % RDW 14.1 (13.2-15.2) % Plt Count 201 (140-440) K/mm3 Lymph % (Auto) 25.0 (13.4-35.0) % [place] % (Auto) 5.9 (0.0-7.3) % Eos % (Auto) 2.4 (0.0-4.3) % Baso % (Auto) 0.9 (0.0-1.8) % Lymph # 1.9 (1.2-5.4) K/mm3 [place] # 0.5 (0.0-0.8) K/mm3 Eos # 0.2 (0.0-0.4) K/mm3 Baso # 0.1 (0.0-0.1) K/mm3 Seg Neutrophils % 65.8 (40.0-70.0) % Seg Neutrophils # 5.1 (1.8-7.7) K/mm3 Sodium 140 (137-145) mmol/L Potassium 4.0 (3.6-5.0) mmol/L Chloride 102.8 (98-107) mmol/L Carbon Dioxide 24 (22-30) mmol/L Anion Gap 17 mmol/L BUN 8 L (9-20) mg/dL Creatinine 1.1 (0.8-1.3) mg/dL Estimated GFR > 60 ml/min BUN/Creatinine Ratio 7 % Glucose 91 (75-100) mg/dL Calcium 9.1 (8.4-10.2) mg/dL NT-Pro-B Natriuret Pep 207.8 (0-900) pg/mL - Radiology Data Chest x-ray is negative for acute process. Does not appear to be significant pulmonary edema present. - Medical Decision Making Patient started on Lasix here in emergency department and he can continue with this medication at home. Critical care attestation.: If time is entered above; I have spent that time in minutes in the direct care of this critically ill patient, excluding procedure time. ED Disposition Clinical Impression: Dependent edema Disposition: DC-01 TO HOME OR SELFCARE Is pt being admited?: No Does the pt Need Aspirin: No Condition: Stable Instructions: Leg Edema (ED) Referrals: PRIMARY CARE, [Primary Care Provider] - 3-5 Days Time of Disposition: 23:43
[2020-06-29 05:08] VITALS: BP 155/92
== END 2020-06-29 00:05 | disposition home or self-care (01) ==
LOC: ED 16:58
DX: R60.9 Edema, unspecified (principal); I10 Essential (primary) hypertension; M19.91 Primary osteoarthritis, unspecified site; J44.9 Chronic obstructive pulmonary disease, unspecified; Z86.73 Personal history of transient ischemic attack (TIA), and cerebral infarction without residual deficits; Z98.890 Other specified postprocedural states; Z79.899 Other long term (current) drug therapy
CPT/HCPCS: 36415; 71045; 80048; 83880; 85025; 96374; 99284; J1940

== ENCOUNTER 2020-07-15 13:21 | Emergency (ER) | payer MEDICARE ==
--- NOTE | 2020-07-15 13:54 | Emergency Department Report ---
ED General Adult HPI - General Stated complaint: CATHETER Time Seen by Provider: 07/15/20 13:45 Source: patient, EMS - History of Present Illness Initial comments: Mr. Bañuelos is a 60 years old male with history of hypertension, CVA approximately 5 years ago with left sided hemiparesis difficulties in his speech, patient is wheelchair-bound. Patient brought to the emergency room via EMS from a dental office after patient started complaining of lower abdominal pain and stating that he want a catheter. Upon arrival to the emergency room patient is an distress and pointing to his suprapubic area stating that he need a Das catheter. Patient found to have a blood pressure of 240/120. Patient stated that when his bladder is full his blood pressure will go up like that. Patient currently denying any headache, neck pain, chest pain, shortness of breath. Patient also denied any new weakness numbness or tingling sensation. - Related Data Home Medications Medication Instructions Recorded Confirmed Last Taken Aspirin [Adult Aspirin] 81 mg PO ONCE 04/21/20 04/29/20 Unknown Baclofen 20 mg PO TID 04/21/20 04/21/20 Unknown Clopidogrel [Plavix] 75 mg PO QDAY 04/21/20 04/21/20 Unknown Gabapentin 300 mg PO QAM 04/21/20 04/21/20 Unknown Gabapentin 600 mg PO QHS 04/21/20 04/21/20 Unknown tiZANidine [Zanaflex 4mg TAB] 2 mg PO QAM 04/21/20 04/21/20 Unknown tiZANidine [Zanaflex 4mg TAB] 4 mg PO QHS 04/21/20 04/21/20 Unknown traZODone [Desyrel] 100 mg PO QHS 04/21/20 04/21/20 Unknown Previous Rx's Medication Instructions Recorded Last Taken Type AtorvaSTATin [Lipitor] 40 mg PO QHS #30 tablet 04/28/20 Unknown Rx Doxazosin [Cardura] 2 mg PO BID #60 tablet 04/28/20 Unknown Rx Metoprolol [Lopressor TAB] 12.5 mg PO BID #60 tablet 04/28/20 Unknown Rx NIFEdipine XL [Procardia Xl] 30 mg PO Q12HR #60 tablet 04/28/20 Unknown Rx Valacyclovir HCl [Valtrex] 1,000 mg PO TID 10 Days #30 tablet 04/28/20 Unknown Rx Valsartan [Diovan] 160 mg PO BID #60 tablet 04/28/20 Unknown Rx Furosemide [Lasix] 20 mg PO QDAY #14 tablet 06/28/20 Unknown Rx Allergies Allergy/AdvReac Type Severity Reaction Status Date / Time No Known Allergies Allergy Verified 05/19/18 07:01 ED Review of Systems ROS: Stated complaint: CATHETER Other details as noted in HPI Comment: All other systems reviewed and negative Constitutional: denies: chills, fever Respiratory: denies: cough, shortness of breath, SOB with exertion, SOB at rest, wheezing Cardiovascular: denies: chest pain, palpitations Gastrointestinal: denies: abdominal pain, nausea, vomiting, diarrhea, constipation Musculoskeletal: denies: back pain Neurological: weakness (chronic). 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 high cholesterol - Surgical History Hx Pacemaker: No Additional Surgical History: PEG tube placement and removal - Social History Smoking Status: Unknown if ever smoked Substance Use Type: None - Medications Home Medications: Home Medications Medication Instructions Recorded Confirmed Last Taken Type Aspirin [Adult Aspirin] 81 mg PO ONCE 04/21/20 04/29/20 Unknown History Baclofen 20 mg PO TID 04/21/20 04/21/20 Unknown History Clopidogrel [Plavix] 75 mg PO QDAY 04/21/20 04/21/20 Unknown History Gabapentin 300 mg PO QAM 04/21/20 04/21/20 Unknown History Gabapentin 600 mg PO QHS 04/21/20 04/21/20 Unknown History tiZANidine [Zanaflex 4mg TAB] 2 mg PO QAM 04/21/20 04/21/20 Unknown History tiZANidine [Zanaflex 4mg TAB] 4 mg PO QHS 04/21/20 04/21/20 Unknown History traZODone [Desyrel] 100 mg PO QHS 04/21/20 04/21/20 Unknown History AtorvaSTATin [Lipitor] 40 mg PO QHS #30 tablet 04/28/20 Unknown Rx Doxazosin [Cardura] 2 mg PO BID #60 tablet 04/28/20 Unknown Rx Metoprolol [Lopressor TAB] 12.5 mg PO BID #60 tablet 04/28/20 Unknown Rx NIFEdipine XL [Procardia Xl] 30 mg PO Q12HR #60 tablet 04/28/20 Unknown Rx Valacyclovir HCl [Valtrex] 1,000 mg PO TID 10 Days #30 tablet 04/28/20 Unknown Rx Valsartan [Diovan] 160 mg PO BID #60 tablet 04/28/20 Unknown Rx Furosemide [Lasix] 20 mg PO QDAY #14 tablet 06/28/20 Unknown Rx ED Physical Exam - General General appearance: alert, in distress - Head Head exam: Present: atraumatic, normocephalic, normal inspection - Eye Eye exam: Present: normal appearance - ENT ENT exam: Present: normal exam, normal orophraynx, mucous membranes moist - Neck Neck exam: Present: normal inspection, full ROM. Absent: tenderness, meni ngismus, lymphadenopathy, thyromegaly - Respiratory Respiratory exam: Present: normal lung sounds bilaterally - Cardiovascular Cardiovascular Exam: Present: regular rate, normal rhythm, normal heart sounds - GI/Abdominal GI/Abdominal exam: Present: soft, normal bowel sounds. Absent: distended, tenderness, guarding, rebound, rigid, organomegaly, mass, bruit, pulsatile mass, hernia - Extremities Exam Extremities exam: Present: normal inspection, full ROM, normal capillary refill. Absent: pedal edema, calf tenderness - Back Exam Back exam: Present: normal inspection, full ROM. Absent: CVA tenderness (R), CVA tenderness (L) - Neurological Exam Neurological exam: Present: alert, oriented X3, motor sensory deficit (Chronic left hemiparesis.), reflexes normal - Psychiatric Psychiatric exam: Present: normal mood, anxious - Skin Skin exam: Present: warm, intact, normal color ED Course Vital Signs 07/15/20 07/15/20 07/15/20 11:03 11:15 11:30 Temperature Pulse Rate Respiratory Rate Blood Pressure 119/75 122/67 122/67 O2 Sat by Pulse 100 100 100 Oximetry 07/15/20 07/15/20 07/15/20 11:45 12:00 12:15 Temperature Pulse Rate Respiratory Rate Blood Pressure 120/71 120/71 139/77 O2 Sat by Pulse 100 100 99 Oximetry 07/15/20 07/15/20 07/15/20 12:30 12:45 13:00 Temperature Pulse Rate Respiratory Rate Blood Pressure 139/77 130/76 130/76 O2 Sat by Pulse 100 100 100 Oximetry 07/15/20 07/15/20 07/15/20 13:43 13:44 13:45 Temperature 98.5 F Pulse Rate 140 H Respiratory 20 Rate Blood Pressure 221/148 219/130 219/130 O2 Sat by Pulse 98 95 97 Oximetry 07/15/20 07/15/20 07/15/20 14:00 14:15 14:30 Temperature Pulse Rate Respiratory Rate Blood Pressure 219/130 161/96 161/96 O2 Sat by Pulse 96 95 95 Oximetry 07/15/20 07/15/20 07/15/20 14:45 15:00 15:15 Temperature Pulse Rate Respiratory Rate Blood Pressure 137/89 129/80 133/76 O2 Sat by Pulse 94 92 93 Oximetry 07/15/20 07/15/20 15:30 15:45 Temperature Pulse Rate Respiratory Rate Blood Pressure 141/77 128/77 O2 Sat by Pulse 93 94 Oximetry ED Medical Decision Making - Lab Data Result diagrams: 07/15/20 14:25 07/15/20 14:25 - Medical Decision Making Mr. Bañuelos is a 60 years old male with history of hypertension, CVA approximately 5 years ago with left sided hemiparesis difficulties in his speech, patient is wheelchair-bound. Patient brought to the emergency room via EMS from a dental office after patient started complaining of lower abdominal pain and stating that he want a catheter. Upon arrival to the emergency room patient is an distress and pointing to his suprapubic area stating that he need a Das catheter. Patient found to have a blood pressure of 240/120. Patient stated that when his bladder is full his blood pressure will go up like that. Patient currently denying any headache, neck pain, chest pain, shortness of breath. Patient also denied any new weakness numbness or tingling sensation. Das catheter inserted in immediately return more than 1 L of urine. Patient stated that he is feeling much better. Labs reviewed and is unremarkable. Patient blood pressure dropped from 240/122 to currently now is 127/87. Patient will be discharged home with a Das catheter and advised to follow-up with a urologist in the next 2 to 3 days and to return to the ER if he develop any new symptoms. Critical care attestation.: If time is entered above; I have spent that time in minutes in the direct care of this critically ill patient, excluding procedure time. ED Disposition Clinical Impression: Urine retention Disposition: DC-01 TO HOME OR SELFCARE Is pt being admited?: No Condition: Stable Instructions: Urinary Retention in Men (ED) Referrals: PRIMARY CAREMD [Primary Care Provider] - 3-5 Days MICHELLE TRACEY MD [Staff Physician] - 3-5 Days
[2020-07-15 14:44] LABS: Basophils % (Auto) 0.4 % (0.0-1.8); Eosinophils # (Auto) 0.1 K/mm3 (0.0-0.4); Hemoglobin 17.3 gm/dl (11.8-15.2); Lymphocytes # (Auto) 0.9 K/mm3 (1.2-5.4); Mean Corpuscular HGB Conc 35 % (32-34); Mean Corpuscular Volume 91 fl (84-94); Monocytes # (Auto) 0.5 K/mm3 (0.0-0.8); Monocytes % (Auto) 4.7 % (0.0-7.3); Red Blood Count 5.47 M/mm3 (3.65-5.03); Red Cell Distribution Width 13.7 % (13.2-15.2)
[2020-07-15 14:48] LABS: Platelet Count 200 K/mm3 (140-440)
[2020-07-15 15:01] LABS: Alanine Aminotransferase 12 units/L (7-56); BUN/Creatinine Ratio 8; Blood Urea Nitrogen 9 mg/dL (9-20); Calcium 9.3 mg/dL (8.4-10.2); Hemolysis Index 34
[2020-07-15 15:05] LABS: Bilirubin,Direct < 0.2 mg/dL (0-0.2)
[2020-07-15 15:13] LABS: Bilirubin,Urine NEG (Negative); Blood,Urine MOD (Negative); Color,Urine Straw (Yellow); Mucus,Urine FEW /HPF; Protein,Urine <15 mg/dL mg/dL (Negative); Urobilinogen,Urine < 2.0 mg/dL (<2.0); WBC,Urine < 1.0 /HPF (0.0-6.0)
[2020-07-15 17:42] VITALS: BP 161/93
== END 2020-07-15 17:54 | disposition home or self-care (01) ==
LOC: ED 13:21
DX: R33.8 Other retention of urine (principal); I10 Essential (primary) hypertension; M13.88 Other specified arthritis, other site; J44.9 Chronic obstructive pulmonary disease, unspecified; E78.00 Pure hypercholesterolemia, unspecified; Z79.899 Other long term (current) drug therapy; Z86.73 Personal history of transient ischemic attack (TIA), and cerebral infarction without residual deficits
CPT/HCPCS: 36415; 51702; 80048; 80076; 81001; 83690; 85025; 99282

== ENCOUNTER 2020-08-16 15:56 | Emergency (ER) | payer MEDICARE ==
--- NOTE | 2020-08-16 16:30 | Emergency Department Report ---
ED Male HPI - General Chief complaint: Urogenital-Male Stated complaint: CANNOT URINATE Time Seen by Provider: 08/16/20 16:10 Source: patient, EMS Mode of arrival: Stretcher Limitations: Physical Limitation - History of Present Illness Initial comments: 61-year-old male, history of hypertension, CVA with left-sided deficits, presents to ED complaining about his Das catheter. Patient had a Das placed approximately 1 month ago for urinary retention. Today, patient states over the last 2 days, his Das catheter has not been draining properly, causing his bladder to feel somewhat full. Patient states it is draining, however, not as much as it once was. Patient reports he has a follow-up appointment with urology August 26. Patient denies any fever, nausea, vomiting, abdominal pain. MD Complaint: other -: days(s) (2) Severity: mild Improves with: none Worsens with: none indwelling catheter denies: blood in urine, fever, nausea/vomiting - Related Data Home Medications Medication Instructions Recorded Confirmed Last Taken Aspirin [Adult Aspirin] 81 mg PO ONCE 04/21/20 04/29/20 Unknown Baclofen 20 mg PO TID 04/21/20 04/21/20 Unknown Clopidogrel [Plavix] 75 mg PO QDAY 04/21/20 04/21/20 Unknown Gabapentin 300 mg PO QAM 04/21/20 04/21/20 Unknown Gabapentin 600 mg PO QHS 04/21/20 04/21/20 Unknown tiZANidine [Zanaflex 4mg TAB] 2 mg PO QAM 04/21/20 04/21/20 Unknown tiZANidine [Zanaflex 4mg TAB] 4 mg PO QHS 04/21/20 04/21/20 Unknown traZODone [Desyrel] 100 mg PO QHS 04/21/20 04/21/20 Unknown Previous Rx's Medication Instructions Recorded Last Taken Type AtorvaSTATin [Lipitor] 40 mg PO QHS #30 tablet 04/28/20 Unknown Rx Doxazosin [Cardura] 2 mg PO BID #60 tablet 04/28/20 Unknown Rx Metoprolol [Lopressor TAB] 12.5 mg PO BID #60 tablet 04/28/20 Unknown Rx NIFEdipine XL [Procardia Xl] 30 mg PO Q12HR #60 tablet 04/28/20 Unknown Rx Valacyclovir HCl [Valtrex] 1,000 mg PO TID 10 Days #30 tablet 04/28/20 Unknown Rx Valsartan [Diovan] 160 mg PO BID #60 tablet 04/28/20 Unknown Rx Furosemide [Lasix] 20 mg PO QDAY #14 tablet 06/28/20 Unknown Rx Ciprofloxacin HCl [Ciprofloxacin 500 mg PO Q12HR 7 Days #14 tab 08/16/20 Unknown Rx TAB] Allergies Allergy/AdvReac Type Severity Reaction Status Date / Time No Known Allergies Allergy Verified 05/19/18 07:01 ED Review of Systems ROS: Stated complaint: CANNOT URINATE Other details as noted in HPI Comment: All other systems reviewed and negative Constitutional: denies: chills, fever Gastrointestinal: denies: abdominal pain, nausea, vomiting Genitourinary: as per HPI ED Past Medical Hx - Past Medical History Hx Hypertension: Yes Hx CVA: Yes (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 high cholesterol - Surgical History Hx Pacemaker: No Additional Surgical History: PEG tube placement and removal - Social History Smoking Status: Former Smoker Substance Use Type: None - Medications Home Medications: Home Medications Medication Instructions Recorded Confirmed Last Taken Type Aspirin [Adult Aspirin] 81 mg PO ONCE 04/21/20 04/29/20 Unknown History Baclofen 20 mg PO TID 04/21/20 04/21/20 Unknown History Clopidogrel [Plavix] 75 mg PO QDAY 04/21/20 04/21/20 Unknown History Gabapentin 300 mg PO QAM 04/21/20 04/21/20 Unknown History Gabapentin 600 mg PO QHS 04/21/20 04/21/20 Unknown History tiZANidine [Zanaflex 4mg TAB] 2 mg PO QAM 04/21/20 04/21/20 Unknown History tiZANidine [Zanaflex 4mg TAB] 4 mg PO QHS 04/21/20 04/21/20 Unknown History traZODone [Desyrel] 100 mg PO QHS 04/21/20 04/21/20 Unknown History AtorvaSTATin [Lipitor] 40 mg PO QHS #30 tablet 04/28/20 Unknown Rx Doxazosin [Cardura] 2 mg PO BID #60 tablet 04/28/20 Unknown Rx Metoprolol [Lopressor TAB] 12.5 mg PO BID #60 tablet 04/28/20 Unknown Rx NIFEdipine XL [Procardia Xl] 30 mg PO Q12HR #60 tablet 04/28/20 Unknown Rx Valacyclovir HCl [Valtrex] 1,000 mg PO TID 10 Days #30 tablet 04/28/20 Unknown Rx Valsartan [Diovan] 160 mg PO BID #60 tablet 04/28/20 Unknown Rx Furosemide [Lasix] 20 mg PO QDAY #14 tablet 06/28/20 Unknown Rx Ciprofloxacin HCl [Ciprofloxacin 500 mg PO Q12HR 7 Days #14 tab 08/16/20 Unknown Rx TAB] ED Physical Exam - General Limitations: Physical Limitation General appearance: alert, in no apparent distress - Head Head exam: Present: atraumatic, normocephalic - Eye Eye exam: Present: normal appearance, EOMI - ENT ENT exam: Present: mucous membranes moist - Neck Neck exam: Present: normal inspection - Respiratory Respiratory exam: Present: normal lung sounds bilaterally. Absent: respiratory distress - Cardiovascular Cardiovascular Exam: Present: regular rate, normal rhythm - GI/Abdominal GI/Abdominal exam: Present: soft. Absent: distended, tenderness - exam: Present: other (Das catheter in place; mild bladder distention on exam) - Extremities Exam Extremities exam: Present: pedal edema (bilaterally) - Neurological Exam Neurological exam: Present: alert, oriented X3 - Psychiatric Psychiatric exam: Present: normal affect, normal mood - Skin Skin exam: Present: warm, dry, intact, normal color ED Course Vital Signs 08/16/20 08/16/20 08/16/20 16:09 16:12 16:14 Temperature 98.0 F Pulse Rate 71 Respiratory 16 Rate Blood Pressure 137/81 Blood Pressure 137/81 [Right] O2 Sat by Pulse 100 Oximetry 08/16/20 08/16/20 08/16/20 16:31 17:01 17:03 Temperature Pulse Rate 74 61 Respiratory 20 20 Rate Blood Pressure 137/81 200/102 Blood Pressure [Right] O2 Sat by Pulse 100 Oximetry 08/16/20 17:31 Temperature Pulse Rate 71 Respiratory 20 Rate Blood Pressure 169/74 Blood Pressure [Right] O2 Sat by Pulse Oximetry ED Medical Decision Making - Medical Decision Making Das catheter replaced. UA shows evidence of UTI. Will place patient on antibiotics and discharge at this time. Patient already has appointment with urologist on the . Return precautions given. - Differential Diagnosis Urinary retention, UTI, Das malfunction Critical care attestation.: If time is entered above; I have spent that time in minutes in the direct care of this critically ill patient, excluding procedure time. ED Disposition Clinical Impression: Encounter for Das catheter replacement, UTI (urinary tract infection) Disposition: TO HOME OR SELFCARE Is pt being admited?: No Condition: Stable Instructions: Urinary Tract Infection in Men (ED) Prescriptions: Ciprofloxacin HCl [Ciprofloxacin TAB] 500 mg PO Q12HR 7 Days #14 tab Referrals: PRIMARY CARE, [Referring] - 3-5 Days Time of Disposition: 17:46
[2020-08-16 17:07] LABS: Bacteria,Urine 2+ /HPF (Negative); Bilirubin,Urine NEG (Negative); Blood,Urine MOD (Negative); Color,Urine Amber (Yellow); Mucus,Urine 2+ /HPF; Protein,Urine >500 mg/dL (Negative); RBC,Urine > 182.0 /HPF (0.0-6.0); WBC,Urine > 182.0 /HPF (0.0-6.0)
[2020-08-16 18:30] VITALS: BP 169/74
== END 2020-08-16 18:30 | disposition home or self-care (01) ==
LOC: ED 15:56
DX: N39.0 Urinary tract infection, site not specified (principal); Z46.6 Encounter for fitting and adjustment of urinary device; M19.90 Unspecified osteoarthritis, unspecified site; J44.9 Chronic obstructive pulmonary disease, unspecified; I10 Essential (primary) hypertension; Z86.73 Personal history of transient ischemic attack (TIA), and cerebral infarction without residual deficits; Z87.891 Personal history of nicotine dependence; Z79.82 Long term (current) use of aspirin; Z79.899 Other long term (current) drug therapy
CPT/HCPCS: 51702; 81001

== ENCOUNTER 2020-10-05 07:39 | Observation (INO) | payer MEDICARE, OTHER ==
[2020-10-05 08:10] LABS: Basophils # (Auto) 0.1 K/mm3 (0.0-0.1); Basophils % (Auto) 0.9 % (0.0-1.8); Eosinophils # (Auto) 0.3 K/mm3 (0.0-0.4); Hematocrit 45.7 % (35.5-45.6); Hemoglobin 15.8 gm/dl (11.8-15.2); Lymphocytes # (Auto) 2.2 K/mm3 (1.2-5.4); Lymphocytes % (Auto) 29.6 % (13.4-35.0); Mean Corpuscular HGB Conc 35 % (32-34); Mean Corpuscular Volume 90 fl (84-94); Monocytes # (Auto) 0.5 K/mm3 (0.0-0.8); Monocytes % (Auto) 6.6 % (0.0-7.3); Platelet Count 206 K/mm3 (140-440); Red Blood Count 5.06 M/mm3 (3.65-5.03); Red Cell Distribution Width 14.5 % (13.2-15.2)
--- NOTE | 2020-10-05 08:12 | Cat Scan Report ---
CT HEAD WITHOUT CONTRAST INDICATION / CLINICAL INFORMATION: MAIN. Code stroke, weakness, dizziness and slurred speech. TECHNIQUE: All CT scans at this location are performed using CT dose reduction for ALARA by means of automated e xposure control. COMPARISON: 05/26/2020 FINDINGS: HEMORRHAGE: None. EXTRA-AXIAL SPACES: Normal in size and morphology for the patient's age. VENTRICULAR SYSTEM: Normal in size and morphology for the patient's age. CEREBRAL PARENCHYMA: Previously noted lacunar infarcts of the right caudate/internal capsule, left po sterior limb of the internal capsule, and left periventricular area are stable. Chronic microvascular changes of the bilateral periventricular and subcortical white matter are stable. No acute territori al infarct. MIDLINE SHIFT OR HERNIATION: None. CEREBELLUM / BRAINSTEM: No significant abnormality. ORBITS: Normal as visualized. SOFT TISSUES of HEAD: No significant abnormality. CALVARIUM: No significant abnormality. PARANASAL SINUSES / MASTOID AIR CELLS: Polypoid mucosal thickening is noted in the bilateral maxillar y sinuses. ADDITIONAL FINDINGS: None. IMPRESSION: 1. No acute intracranial abnormality. 2. Chronic microvascular changes and bibasilar lacunar infarcts are stable since prior exam dated 05/08. CODE STROKE: Time of Communication (DIET ASSISTANT/CDT): 0706 Licensed Practitioner Receiving Report: Dr. Macias ([facility]) Signer Name: Alexi Simmons MD Signed: 10/05/2020 8:08 AM Workstation Name: [id number]
--- NOTE | 2020-10-05 08:16 | Consultation ---
History of Present Illness Consult date: 10/05/20 Medications and Allergies Allergies Allergy/AdvReac Type Severity Reaction Status Date / Time No Known Allergies Allergy Verified 05/19/18 07:01 Home Medications Medication Instructions Recorded Confirmed Last Taken Type Aspirin [Adult Aspirin] 81 mg PO ONCE 04/21/20 04/29/20 Unknown History Baclofen 20 mg PO TID 04/21/20 04/21/20 Unknown History Clopidogrel [Plavix] 75 mg PO QDAY 04/21/20 04/21/20 Unknown History Gabapentin 300 mg PO QAM 04/21/20 04/21/20 Unknown History Gabapentin 600 mg PO QHS 04/21/20 04/21/20 Unknown History tiZANidine [Zanaflex 4mg TAB] 2 mg PO QAM 04/21/20 04/21/20 Unknown History tiZANidine [Zanaflex 4mg TAB] 4 mg PO QHS 04/21/20 04/21/20 Unknown History traZODone [Desyrel] 100 mg PO QHS 04/21/20 04/21/20 Unknown History AtorvaSTATin [Lipitor] 40 mg PO QHS #30 tablet 04/28/20 Unknown Rx Doxazosin [Cardura] 2 mg PO BID #60 tablet 04/28/20 Unknown Rx Metoprolol [Lopressor TAB] 12.5 mg PO BID #60 tablet 04/28/20 Unknown Rx NIFEdipine XL [Procardia Xl] 30 mg PO Q12HR #60 tablet 04/28/20 Unknown Rx Valacyclovir HCl [Valtrex] 1,000 mg PO TID 10 Days #30 tablet 04/28/20 Unknown Rx Valsartan [Diovan] 160 mg PO BID #60 tablet 04/28/20 Unknown Rx Furosemide [Lasix] 20 mg PO QDAY #14 tablet 06/28/20 Unknown Rx Ciprofloxacin HCl [Ciprofloxacin 500 mg PO Q12HR 7 Days #14 tab 08/16/20 Unknown Rx TAB] Results - Laboratory Findings CBC and BMP: 10/05/20 07:58 10/05/20 07:58 Abnormal Lab Findings: Abnormal Labs 10/05/20 07:58 RBC 5.06 H Hgb 15.8 H Hct 45.7 H MCHC 35 H Assessment and Plan [facility] Consult Services Date of Service: 10/05/2020 07:39:06 Impression: Rule Out Acute Ischemic Stroke Right Hemispheric Infarct Posterior Circulation Infarct Comments/Sign-Out: worsening of baseline left sided weakness/numbness and new onset dizziness described as feeling off balance- concerning for posterior circulation versus right hemispheric stroke. Also on the differential is worsening of baseline symptoms from prior stroke due to metabolic, toxic, or infectious etiology versus cessation of tizanidine versus side effect from gabapentin. Of note, he has mild slurred speech at baseline, which is unchanged per the patient. Mechanism of Stroke: Not Clear Metrics: Last Known Well: 10/02/2020 12:00:00 [facility] Notification Time: 10/05/2020 07:38:48 Arrival Time: 10/05/2020 07:38:00 Stamp Time: 10/05/2020 07:39:06 Time First Login Attempt: 10/05/2020 07:45:01 Video Start Time: 10/05/2020 07:45:01 Symptoms: left sided weakness/numbness, dizziness NIHSS Start Assessment Time: 10/05/2020 07:55:11 Patient is not a candidate for Alteplase/Activase. Patient was not deemed candidate for Alteplase/Activase thrombolytics because of Last Well Known Above 4.5 Hours. Video End Time: 10/05/2020 08:05:13 CT head showed no acute hemorrhage or acute core infarct. Clinical Presentation is not Suggestive of Large Vessel Occlusive Disease ED Physician notified of diagnostic impression and management plan on 10/05/2020 08:07:00 Our recommendations are outlined below. Recommendations: Activate Stroke Protocol Admission/Order Set Stroke/Telemetry Floor Neuro Checks Bedside Swallow Eval DVT Prophylaxis IV Fluids, Normal Saline Head of Bed 30 Degrees Euglycemia and Avoid Hyperthermia (PRN Acetaminophen) Antiplatelet Therapy Recommended Routine Consultation with Inhouse Neurology for Follow up Care Sign Out: Discussed with Emergency Department Provider History of Present Illness: Patient is a 60 year old Male. Patient was brought by EMS for symptoms of left sided weakness/numbness, dizziness 60 year old man with history of stroke (with residual left sided weakness/numbness and mild slurred speech) presents with worsening left sided weakness, left sided numbness, and dizziness. He states that the worsening of the left sided symptoms began 3 days ago when he ran out of his tizanidine and has been constant since it began. He states that he also feels like the gabapentin is worsening it. He also admits to feeling dizzy, described as off balance sensatio. He is not sure when it began but he knows that when he went to bed at midnight this morning, he had slight dizziness then but it was worse upon awakening this morning. Examination: BP(191/92), Pulse(61), Blood Glucose(96) 1A: Level of Consciousness - Alert; keenly responsive + 0 1B: Ask Month and Age - Both Questions Right + 0 1C: Blink Eyes & Squeeze Hands - Performs Both Tasks + 0 2: Test Horizontal Extraocular Movements - Normal + 0 3: Test Visual Boland - No Visual Loss + 0 4: Test Facial Palsy (Use Grimace if Obtunded) - Normal symmetry + 0 5A: Test Left Arm Motor Drift - Drift, but doesn't hit bed + 1 5B: Test Right Arm Motor Drift - No Drift for 10 Seconds + 0 6A: Test Left Leg Motor Drift - Drift, but doesn't hit bed + 1 (has difficulty lifting it on his own but when it is lifted for him, it drifts but does not hit the bed. He states that at baseline, he has difficulty lifiting it but it feels worse for the last 3 days) 6B: Test Right Leg Motor Drift - No Drift for 5 Seconds + 0 7: Test Limb Ataxia (FNF/Heel-Sotomayor) - No Ataxia + 0 8: Test Sensation - Mild-Moderate Loss: Less Sharp/More Dull + 1 9: Test Language/Aphasia - Normal; No aphasia + 0 10: Test Dysarthria - Normal + 0 11: Test Extinction/Inattention - No abnormality + 0 NIHSS Score: 3 Patient/Family was informed the Neurology Consult would happen via TeleHealth consult by way of interactive audio and video telecommunications and consented to receiving care in this manner. Due to the immediate potential for life-threatening deterioration due to underlying acute neurologic illness, I spent 30 minutes providing critical care. This time includes time for face to face visit via telemedicine, review of medical records, imaging studies and discussion of findings with providers, the patient and/or family. Dr Johnna Gillespie [facility] Case [id number]
[2020-10-05 08:20] LABS: INR 1.33 (0.87-1.13)
[2020-10-05 08:21] LABS: Partial Thromboplastin Time 32.7 Sec. (24.2-36.6)
[2020-10-05 08:24] LABS: BUN/Creatinine Ratio 7; Blood Urea Nitrogen 8 mg/dL (9-20); Calcium 9.3 mg/dL (8.4-10.2); Hemolysis Index 17
--- NOTE | 2020-10-05 08:44 | Emergency Department Report ---
HPI - General Time Seen by Provider: 10/05/20 07:52 - HPI HPI: Room 3 The patient is a 60-year-old male present with a chief complaint of left-sided weakness. Patient states 1 week ago he developed increased weakness in his left lower and left upper extremity. The patient has residual left-sided weakness from previous CVA but he states this weakness worsened approximately 1 week ago. Patient states he also developed dizziness with waking up. Patient states for the past 3 days he has had numbness in the left lower extremity. The patient states he ran out of his tizanidine and began taking gabapentin he had from a previous prescription. 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 high cholesterol - Surgical History Past Surgical History?: Yes Additional Surgical History: PEG tube placement and removal - Social History Smoking Status: Never Smoker Substance Use Type: None (Denies illicit drug use) - Medications Home Medications: Home Medications Medication Instructions Recorded Confirmed Last Taken Type Aspirin [Adult Aspirin] 81 mg PO ONCE 04/21/20 04/29/20 Unknown History Baclofen 20 mg PO TID 04/21/20 04/21/20 Unknown History Clopidogrel [Plavix] 75 mg PO QDAY 04/21/20 04/21/20 Unknown History Gabapentin 300 mg PO QAM 04/21/20 04/21/20 Unknown History Gabapentin 600 mg PO QHS 04/21/20 04/21/20 Unknown History tiZANidine [Zanaflex 4mg TAB] 2 mg PO QAM 04/21/20 04/21/20 Unknown History tiZANidine [Zanaflex 4mg TAB] 4 mg PO QHS 04/21/20 04/21/20 Unknown History traZODone [Desyrel] 100 mg PO QHS 04/21/20 04/21/20 Unknown History AtorvaSTATin [Lipitor] 40 mg PO QHS #30 tablet 04/28/20 Unknown Rx Doxazosin [Cardura] 2 mg PO BID #60 tablet 04/28/20 Unknown Rx Metoprolol [Lopressor TAB] 12.5 mg PO BID #60 tablet 04/28/20 Unknown Rx NIFEdipine XL [Procardia Xl] 30 mg PO Q12HR #60 tablet 04/28/20 Unknown Rx Valacyclovir HCl [Valtrex] 1,000 mg PO TID 10 Days #30 tablet 04/28/20 Unknown Rx Valsartan [Diovan] 160 mg PO BID #60 tablet 04/28/20 Unknown Rx Furosemide [Lasix] 20 mg PO QDAY #14 tablet 06/28/20 Unknown Rx Ciprofloxacin HCl [Ciprofloxacin 500 mg PO Q12HR 7 Days #14 tab 08/16/20 Unknown Rx TAB] ED Review of Systems ROS: Stated complaint: STROKE Other details as noted in HPI Constitutional: no symptoms reported Eyes: denies: eye pain ENT: denies: throat pain Respiratory: no symptoms reported Cardiovascular: denies: chest pain Endocrine: no symptoms reported Gastrointestinal: denies: abdominal pain Genitourinary: denies: dysuria Neurological: weakness, paresthesias. denies: headache Physical Exam - Physical Exam Physical Exam: GENERAL: The patient is well-developed well-nourished male lying on stretcher not appearing to be in acute distress. [] HEENT: Normocephalic. Atraumatic. Extraocular motions are intact. Patient has moist mucous membranes. NECK: Supple. Trachea midline CHEST/LUNGS: Clear to auscultation. There is no respiratory distress noted. HEART/CARDIOVASCULAR: Regular. There is no tachycardia. There is no gallop rub or murmur. ABDOMEN: Abdomen is soft, nontender. Patient has normal bowel sounds. There is no abdominal distention. SKIN: There is no rash. There is no edema. There is no diaphoresis. NEURO: The patient is awake, alert, and oriented. The patient is cooperative. Cranial nerves II through XII grossly intact. Left upper extremity and left lower extremity weakness appreciated. MUSCULOSKELETAL: There is no evidence of acute injury. ED Medical Decision Making - Lab Data Result diagrams: 10/05/20 07:58 10/05/20 07:58 Laboratory Tests 10/05/20 10/05/20 10/05/20 07:58 07:58 07:58 WBC 7.4 RBC 5.06 H Hgb 15.8 H Hct 45.7 H MCV 90 MCH 31 MCHC 35 H RDW 14.5 Plt Count 206 Lymph % (Auto) 29.6 Hood % (Auto) 6.6 Eos % (Auto) 4.0 Baso % (Auto) 0.9 Lymph # (Auto) 2.2 Hood # (Auto) 0.5 Eos # (Auto) 0.3 Baso # (Auto) 0.1 Seg Neutrophils % 58.9 Seg Neutrophils # 4.3 PT 16.3 H INR 1.33 H APTT 32.7 Thrombin Time Sodium 137 Potassium 3.7 Chloride 104.3 Carbon Dioxide 27 Anion Gap 9 BUN 8 L Creatinine 1.2 Estimated GFR > 60 BUN/Creatinine Ratio 7 Glucose 101 H POC Glucose Calcium 9.3 Troponin T < 0.010 10/05/20 10/05/20 07:58 08:10 WBC RBC Hgb Hct MCV MCH MCHC RDW Plt Count Lymph % (Auto) Hood % (Auto) Eos % (Auto) Baso % (Auto) Lymph # (Auto) Hood # (Auto) Eos # (Auto) Baso # (Auto) Seg Neutrophils % Seg Neutrophils # PT INR APTT Thrombin Time 16.6 Sodium Potassium Chloride Carbon Dioxide Anion Gap BUN Creatinine Estimated GFR BUN/Creatinine Ratio Glucose POC Glucose 96 Calcium Troponin T - EKG Data -: EKG Interpreted by Mn EKG shows normal: sinus rhythm Rate: bradycardia (54 bpm) - EKG Data When compared to previous EKG there are: previous EKG unavailable Interpretation: nonspecific ST-T wave joaquin (T wave inversion in lead III) - Radiology Data Radiology results: report reviewed (CT head), image reviewed (CT head) [place] [address] Cat Scan Report Signed Patient: CHIDI MARES MR#: [id number] : 1960 Acct:[id number] Age/Sex: 60 / M ADM Date: 10/05/20 Loc: ED Attending Dr: Ordering Physician: KEILA TAYLOR MD Date of Service: 10/05/20 Procedure(s): CT head/brain wo con Accession Number(s): [id number] cc: KEILA TAYLOR MD CT HEAD WITHOUT CONTRAST INDICATION / CLINICAL INFORMATION: MAIN. Code stroke, weakness, dizziness and slurred speech. TECHNIQUE: All CT scans at this location are performed using CT dose reduction for ALARA by means of automated exposure control. COMPARISON: 05/26/2020 FINDINGS: HEMORRHAGE: None. EXTRA-AXIAL SPACES: Normal in size and morphology for the patient's age. VENTRICULAR SYSTEM: Normal in size and morphology for the patient's age. CEREBRAL PARENCHYMA: Previously noted lacunar infarcts of the right caudate/internal capsule, left posterior limb of the internal capsule, and left periventricular area are stable. Chronic microvascular changes of the bilateral periventricular and subcortical white matter are stable. No acute territorial infarct. MIDLINE SHIFT OR HERNIATION: None. CEREBELLUM / BRAINSTEM: No significant abnormality. ORBITS: Normal as visualized. SOFT TISSUES of HEAD: No significant abnormality. CALVARIUM: No significant abnormality. PARANASAL SINUSES / MASTOID AIR CELLS: Polypoid mucosal thickening is noted in the bilateral maxillary sinuses. ADDITIONAL FINDINGS: None. IMPRESSION: 1. No acute intracranial abnormality. 2. Chronic microvascular changes and bibasilar lacunar infarcts are stable since prior exam dated 05/26/2020. CODE STROKE: Time of Communication (METER CHANGES RECORDS CLERK/CDT): 0706 Licensed Practitioner Receiving Report: Dr. Taylor ([facility]) Signer Name: Alexi Deshpande MD Signed: 10/05/2020 8:08 AM Workstation Name: [id number] Transcribed By: Dictated By: ALEXI DESHPANDE Electronically Authenticated By: ALEXI DESHPANDE Signed Date/Time: 10/05/20 0808 DD/ 0758 TD/TT: - Differential Diagnosis CVA, medication reaction Critical care attestation.: If time is entered above; I have spent that time in minutes in the direct care of this critically ill patient, excluding procedure time. ED Disposition Clinical Impression: Left-sided weakness Disposition: DC-09 OP ADMIT IP TO THIS HOSP Is pt being admited?: Yes Does the pt Need Aspirin: Yes Condition: Fair Referrals: PRIMARY CARE, [Primary Care Provider] - 3-5 Days Time of Disposition: 09:14 (Hospitalist paged)
[2020-10-05] MEDS ORDERED: ASPIRIN 325 MG TAB PO ONE (08:46)
--- NOTE | 2020-10-05 10:34 | History and Physical Report ---
<LÁZARO ANDERSON - Last Filed: 10/05/20 14:40> History of Present Illness Date of examination: 10/05/20 Date of admission: 10/05/20 Chief complaint: CVA History of present illness: This a 60-year-old male patient seen in ED at bedside. Patient came with a chief complaint of left-sided weakness, dizziness and leg numbness. He has a past medical history of CVA, hypertension, hyperlipidemia, arthritis and peg placement and removal. Patient states 1 week ago he developed increased weakness in his left lower and left upper extremity. The patient has residual left-sided weakness from previous CVA but he states this weakness worsened approximately 1 week ago. The patient states he ran out of his tizanidine and began taking gabap entin. He said he things he is addicted to gabapentin because he gets disoriented if he does not take it. Patient advised to quit taken gabapen, but he said he has to take it to prevent the withdrawal symptoms. Patient seen at bedside. reviewed lab, mar and v/s ED work up shows serum glucose 101, hemoglobin 15.8. Ct of the head done-no acute hemorrhage or acute core infarct. patient not a candidate for Alteplase/Activase thrombolytics because of Last Well Known Above 4.5 Hours-per neurologist reces PT/OT and speech pathologist consult patient started on IV hydration with normal salin. Antiplatelete started Past History Past Medical History: arthritis, COPD, hypertension, hyperlipidemia, stroke, other (left sided weakness) Past Surgical History: Other (peg placement and removal) Social history: no significant social history Family history: no significant family history Medications and Allergies Allergies Allergy/AdvReac Type Severity Reaction Status Date / Time No Known Allergies Allergy Verified 05/19/18 07:01 Home Medications Medication Instructions Recorded Confirmed Last Taken Type Aspirin [Adult Aspirin] 81 mg PO ONCE 04/21/20 04/29/20 Unknown History Baclofen 20 mg PO TID 04/21/20 04/21/20 Unknown History Clopidogrel [Plavix] 75 mg PO QDAY 04/21/20 04/21/20 Unknown History Gabapentin 300 mg PO QAM 04/21/20 04/21/20 Unknown History Gabapentin 600 mg PO QHS 04/21/20 04/21/20 Unknown History tiZANidine [Zanaflex 4mg TAB] 2 mg PO QAM 04/21/20 04/21/20 Unknown History tiZANidine [Zanaflex 4mg TAB] 4 mg PO QHS 04/21/20 04/21/20 Unknown History traZODone [Desyrel] 100 mg PO QHS 04/21/20 04/21/20 Unknown History AtorvaSTATin [Lipitor] 40 mg PO QHS #30 tablet 04/28/20 Unknown Rx Doxazosin [Cardura] 2 mg PO BID #60 tablet 04/28/20 Unknown Rx Metoprolol [Lopressor TAB] 12.5 mg PO BID #60 tablet 04/28/20 Unknown Rx NIFEdipine XL [Procardia Xl] 30 mg PO Q12HR #60 tablet 04/28/20 Unknown Rx Valacyclovir HCl [Valtrex] 1,000 mg PO TID 10 Days #30 tablet 04/28/20 Unknown Rx Valsartan [Diovan] 160 mg PO BID #60 tablet 04/28/20 Unknown Rx Furosemide [Lasix] 20 mg PO QDAY #14 tablet 06/28/20 Unknown Rx Ciprofloxacin HCl [Ciprofloxacin 500 mg PO Q12HR 7 Days #14 tab 08/16/20 Unknown Rx TAB] Review of Systems Constitutional: weakness (left sided weakness), no lethargy Ears, nose, mouth and throat: no ear pain, no ear discharge, no epistaxis Cardiovascular: high blood pressure, no chest pain Respiratory: other (hx of copd), no hemoptysis Gastrointestinal: no abdominal pain, no diarrhea Genitourinary Male: no hematuria Musculoskeletal: muscle weakness, no neck stiffness, no shooting arm pain Neurological: paralysis, weakness Psychiatric: no suicidal ideation Endocrine: no excessive sweating Hematologic/Lymphatic: no easy bleeding Exam - Constitutional Vitals: Temp Pulse Resp BP Pulse Ox 97.6 F 48 L 9 L 162/83 98 10/05/20 08:17 10/05/20 10:16 10/05/20 10:16 10/05/20 10:16 10/05/20 10:16 General appearance: Present: no acute distress, well-nourished - EENT Eyes: Present: PERRL ENT: hearing intact, clear oral mucosa - Neck Neck: Present: supple, normal ROM - Respiratory Respiratory effort: normal Respiratory: bilateral: CTA - Cardiovascular Heart rate: 48 Heart Sounds: Present: S1 & S2. Absent: rub, click - Extremities Extremities: pulses symmetrical, No edema Peripheral Pulses: within normal limits - Abdominal General gastrointestinal: Present: soft, non-tender, non-distended, normal bowel sounds Male genitourinary: Present: normal - Integumentary Integumentary: Present: clear, warm, dry - Musculoskeletal Musculoskeletal: left sided weakness - Psychiatric Psychiatric: appropriate mood/affect, intact judgment & insight, cooperative - Neurologic Neurologic: CNII-XII intact, moves all extremities - Allied Health Allied health notes reviewed: nursing, PT HEART Score - HEART Score Troponin: Troponin T < 0.010 ng/mL (0.00-0.029) 10/05/20 07:58 Results - Labs CBC & Chem 7: 10/05/20 07:58 10/05/20 07:58 Labs: Abnormal lab results 10/05/20 10/05/20 10/05/20 Range/Units 07:58 07:58 07:58 RBC 5.06 H (3.65-5.03) M/mm3 Hgb 15.8 H (11.8-15.2) gm/dl Hct 45.7 H (35.5-45.6) % MCHC 35 H (32-34) % PT 16.3 H (12.2-14.9) Sec. INR 1.33 H (0.87-1.13) BUN 8 L (9-20) mg/dL Glucose 101 H (75-100) mg/dL Assessment and Plan - Patient Problems (1) Left-sided weakness Current Visit: Yes Status: Acute Plan to address problem: patient has hx of cva Safety and fall precaution at all time CT of the head -no acute process Neurologist consult (2) CVA (cerebral vascular accident) Current Visit: No Status: Acute Plan to address problem: Tele-neuro consult-patient above time Continue Stroke Protocol Neuro check q 4 hrs PT/OT and speech consult Continue IV hydration with normal saline HOD 30 degrees -aspiration precaution Continue Antiplatelet Therapy Recommended (3) Hypertensive crisis Current Visit: No Status: Acute Plan to address problem: Monitor blood presure Will resume home anti-hypertensive amlodipin and clonidine (4) Hyperlipidemia Current Visit: Yes Status: Acute Plan to address problem: resume home statin (5) DVT prophylaxis Current Visit: No Status: Acute Plan to address problem: SQ Lovenox (6) Advance care planning Current Visit: Yes Status: Acute Plan to address problem: Discussed current medical status and plan of care with patient at bedside Patient is full code <OSWALDO WONG - Last Filed: 10/06/20 07:28> History of Present Illness Date of admission: 10/05/20 15:34 Medications and Allergies Active Meds: Active Medications Amlodipine Besylate (Amlodipine) 10 mg PO QDAY [facility] Last Admin: 10/05/20 15:54 Dose: 10 mg Documented by: Aspirin (Aspirin) 325 mg PO QDAY BRIAN Atorvastatin Calcium (Lipitor) 40 mg PO QHS [facility] Last Admin: 10/05/20 22:10 Dose: 40 mg Documented by: Clonidine HCl (Catapres) 0.2 mg PO Q12HR [facility] Last Admin: 10/05/20 22:10 Dose: 0.2 mg Documented by: Clopidogrel Bisulfate (Plavix) 75 mg PO QDAY [facility] Last Admin: 10/05/20 12:32 Dose: 75 mg Documented by: Enoxaparin Sodium (Enoxaparin) 30 mg SUB-Q QDAY [facility]; Protocol Last Admin: 10/05/20 12:31 Dose: 30 mg Documented by: Sodium Chloride (Nacl 0.9% 1000 Ml) 1,000 mls @ 75 mls/hr IV DIRECT BRIAN Last Admin: 10/05/20 22:10 Dose: 75 mls/hr Documented by: Insulin Human Lispro (Humalog) 0 unit SUB-Q ACHS [facility]; Protocol Last Admin: 10/05/20 22:10 Dose: Not Given Documented by: Labetalol HCl (Labetalol) 10 mg IV Q6HR PRN PRN Reason: Hypertension Last Admin: 10/06/20 05:22 Dose: 10 mg Documented by: Lactulose (Cephulac) 20 gm PO QHS PRN PRN Reason: Constipation Ondansetron HCl (Zofran) 4 mg IV Q4H PRN PRN Reason: Nausea And Vomiting Tizanidine HCl (Zanaflex) 4 mg PO Q8H PRN PRN Reason: Muscle Spasm Tramadol HCl (Ultram) 50 mg PO Q6H PRN PRN Reason: Pain, Moderate (4-6) Trazodone HCl (Desyrel) 50 mg PO QHS PRN PRN Reason: Insomnia Last Admin: 10/05/20 22:10 Dose: 50 mg Documented by: Exam - Constitutional Vitals: Temp Pulse Resp BP Pulse Ox 97.4 F L 59 L 18 177/79 97 10/06/20 05:11 10/06/20 05:11 10/06/20 05:11 10/06/20 05:11 10/06/20 05:11 HEART Score - HEART Score Troponin: Troponin T < 0.010 ng/mL (0.00-0.029) 10/05/20 07:58 Results - Labs CBC & Chem 7: 10/05/20 07:58 10/05/20 07:58 Labs: Abnormal lab results 10/05/20 10/05/20 10/05/20 Range/Units 07:58 07:58 07:58 RBC 5.06 H (3.65-5.03) M/mm3 Hgb 15.8 H (11.8-15.2) gm/dl Hct 45.7 H (35.5-45.6) % MCHC 35 H (32-34) % PT 16.3 H (12.2-14.9) Sec. INR 1.33 H (0.87-1.13) BUN 8 L (9-20) mg/dL Glucose 101 H (75-100) mg/dL Assessment and Plan I saw and evaluated the patient. I agree with the findings and the plan of care as documented in the Nurse Practitioner's~note, with the following corrections and additions.
[2020-10-05] MEDS ORDERED: traMADol 50 MG TAB PO PRN (10:55)
[2020-10-05] MEDS ORDERED: LACTULOSE 20 GM/30 ML ORAL LIQD PO PRN (10:55)
[2020-10-05] MEDS ORDERED: ONDANSETRON 4 MG/2 ML INJ IV PRN (10:55)
[2020-10-05] MEDS ORDERED: SODIUM CHLORIDE 0.9% 1000 ML 1,000 ML IV SCH (11:15)
[2020-10-05] MEDS ORDERED: ASPIRIN 325 MG TAB ONE (12:18)
[2020-10-05] MEDS: ENOXAPARIN 30 MG/0.3 ML INJ SUB-Q SCH (12:31)
[2020-10-05] MEDS: CLOPIDOGREL 75 MG TAB PO SCH (12:32)
[2020-10-05] MEDS: INSULIN LISPRO 100 UNIT/ML VIAL 3 mL SUB-Q SCH ×3 (12:36→22:10)
[2020-10-05] MEDS: cloNIDine 0.2 MG TAB PO SCH ×2 (14:55→22:10)
[2020-10-05] MEDS ORDERED: amLODIPine 10 MG TAB ONE (15:48)
[2020-10-05] MEDS: amLODIPine 10 MG TAB PO SCH (15:54)
[2020-10-05] MEDS: traZODone 50 MG TAB PO PRN (22:10)
[2020-10-06] MEDS: INSULIN LISPRO 100 UNIT/ML VIAL 3 mL SUB-Q SCH ×4 (08:33→23:19)
[2020-10-06] MEDS: tiZANidine TAB 4 MG TAB PO PRN (08:58)
[2020-10-06] MEDS: ENOXAPARIN 30 MG/0.3 ML INJ SUB-Q SCH (09:13)
[2020-10-06] MEDS: CLOPIDOGREL 75 MG TAB PO SCH (09:14)
[2020-10-06] MEDS: amLODIPine 10 MG TAB PO SCH (09:14)
[2020-10-06] MEDS: cloNIDine 0.2 MG TAB PO SCH ×2 (09:14→23:19)
[2020-10-06] MEDS: ASPIRIN 325 MG TAB PO SCH (09:14)
[2020-10-06] MEDS: cefTRIAXone/NS 1 GM/50 ML 1 GM/50 ML BAG IV SCH (09:14)
[2020-10-06] MEDS: VALSARTAN 160MG TAB PO SCH ×2 (12:44→23:17)
[2020-10-06] MEDS: FUROSEMIDE 20 MG TAB PO SCH (12:45)
[2020-10-06] MEDS ORDERED: BACLOFEN 20 MG PO SCH (14:00)
[2020-10-06] MEDS ORDERED: VALACYCLOVIR HCL 1000 MG PO SCH (14:00)
[2020-10-06] MEDS: valACYclovir 500 MG TAB PO SCH ×2 (14:37→23:18)
[2020-10-06] MEDS: METOPROLOL TARTRATE 25 MG TAB PO SCH ×2 (14:38→23:19)
[2020-10-06] MEDS: BACLOFEN 10 MG TAB PO SCH ×2 (14:38→23:18)
--- NOTE | 2020-10-06 14:41 | Progress Note ---
<JUDIE GILLAdin - Last Filed: 10/06/20 14:59> Assessment and Plan - Patient Problems (1) CVA (cerebral vascular accident) Status: Acute Plan to address problem: CVA versus TIA 10/05 CT head shows no acute intracranial abnormality, chronic microvascular changes and stable bibasilar lacunar infarcts from 05/26/2020 Deemed not a candidate for TPA by neurology consult in the emergency department Neurology consulted ST/PT/OT/nutrition consulted Aspirin and statin therapy Aspiration/fall/seizure precautions Permissive hypertension for 24 hours Maintain euthymia and euglycemia 10/06 MRI brain pending 10/06 CTA head/neck pending 10/06 echocardiogram with bubble study pending (2) Hypertension Status: Chronic Plan to address problem: Continue home regimen: Lopressor, doxazosin, furosemide, nifedipine, metoprolol, valsartan and titrate as needed Blood pressure monitoring per protocol As needed antihypertensive first SBP greater than 160 (3) Hyperlipidemia Status: Chronic Plan to address problem: 10/06 lipid panel pending Statin therapy (4) DVT prophylaxis Status: Acute Plan to address problem: SCDs to bilateral lower extremities while in bed Lovenox subcu History Interval history: This a 60-year-old male patient arthritis, COPD, HTN, HLD, s/p PEG tube removal and 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 Patient had a CTh in the emergency department which showed no acute hemorrhage or acute core infarct. Neurology was consulted and he was deemed not a candidate for thrombolytics due to K well above 4.5 hours. He was admitted to the hospital service and stroke protocol was initiated with consults to ST/PT. This morning neurology and nutrition were consulted. Patient antihypertensives were also adjusted due to persistent hypertension and closing window for permissive hypertension. Hospitalist Physical - Constitutional Vitals: Temp Pulse Resp BP Pulse Ox 97.6 F 61 20 167/73 97 10/06/20 11:55 10/06/20 12:44 10/06/20 11:55 10/06/20 12:44 10/06/20 13:01 General appearance: Present: no acute distress, well-nourished - EENT Eyes: Present: PERRL, EOM intact ENT: hearing intact, other (Dentures) - Neck Neck: Present: supple - Respiratory Respiratory effort: normal Respiratory: bilateral: CTA - Cardiovascular Rhythm: regular Heart Sounds: Present: S1 & S2. Absent: systolic murmur, diastolic murmur - Extremities Extremities: no ischemia, pulses intact, pulses symmetrical, No edema, normal temperature, normal color, Full ROM Peripheral Pulses: within normal limits - Abdominal General gastrointestinal: soft, non-tender, non-distended, normal bowel sounds - Integumentary Integumentary: Present: warm, dry - Psychiatric Psychiatric: cooperative - Neurologic Neurologic: CNII-XII intact, focal deficits (Left-sided weakness, left you even dropped), moves all extremities - Allied Health Allied health notes reviewed: nursing HEART Score - HEART Score Troponin: Troponin T < 0.010 ng/mL (0.00-0.029) 10/05/20 07:58 Results - Labs CBC & Chem 7: 10/05/20 07:58 10/05/20 07:58 Labs: Laboratory Last Values WBC 7.4 K/mm3 (4.5-11.0) 10/05/20 07:58 RBC 5.06 M/mm3 (3.65-5.03) H 10/05/20 07:58 Hgb 15.8 gm/dl (11.8-15.2) H 10/05/20 07:58 Hct 45.7 % (35.5-45.6) H 10/05/20 07:58 MCV 90 fl (84-94) 10/05/20 07:58 MCH 31 pg (28-32) 10/05/20 07:58 MCHC 35 % (32-34) H 10/05/20 07:58 RDW 14.5 % (13.2-15.2) 10/05/20 07:58 Plt Count 206 K/mm3 (140-440) 10/05/20 07:58 Lymph % (Auto) 29.6 % (13.4-35.0) 10/05/20 07:58 [place] % (Auto) 6.6 % (0.0-7.3) 10/05/20 07:58 Eos % (Auto) 4.0 % (0.0-4.3) 10/05/20 07:58 Baso % (Auto) 0.9 % (0.0-1.8) 10/05/20 07:58 Lymph # (Auto) 2.2 K/mm3 (1.2-5.4) 10/05/20 07:58 [place] # (Auto) 0.5 K/mm3 (0.0-0.8) 10/05/20 07:58 Eos # (Auto) 0.3 K/mm3 (0.0-0.4) 10/05/20 07:58 Baso # (Auto) 0.1 K/mm3 (0.0-0.1) 10/05/20 07:58 Seg Neutrophils % 58.9 % (40.0-70.0) 10/05/20 07:58 Seg Neutrophils # 4.3 K/mm3 (1.8-7.7) 10/05/20 07:58 PT 16.3 Sec. (12.2-14.9) H 10/05/20 07:58 INR 1.33 (0.87-1.13) H 10/05/20 07:58 APTT 32.7 Sec. (24.2-36.6) 10/05/20 07:58 Thrombin Time 16.6 Sec. (15.1-19.6) 10/05/20 07:58 Sodium 137 mmol/L (137-145) 10/05/20 07:58 Potassium 3.7 mmol/L (3.6-5.0) 10/05/20 07:58 Chloride 104.3 mmol/L (98-107) 10/05/20 07:58 Carbon Dioxide 27 mmol/L (22-30) 10/05/20 07:58 Anion Gap 9 mmol/L 10/05/20 07:58 BUN 8 mg/dL (9-20) L 10/05/20 07:58 Creatinine 1.2 mg/dL (0.8-1.3) 10/05/20 07:58 Estimated GFR > 60 ml/min 10/05/20 07:58 BUN/Creatinine Ratio 7 % 10/05/20 07:58 Glucose 101 mg/dL (75-100) H 10/05/20 07:58 POC Glucose 120 mg/dL (70-105) H 10/06/20 11:57 Hemoglobin A1c 5.7 % (4-6) 10/05/20 11:15 Calcium 9.3 mg/dL (8.4-10.2) 10/05/20 07:58 Troponin T < 0.010 ng/mL (0.00-0.029) 10/05/20 07:58 Das/IV: Voiding Method Urinal IV Catheter Type [Right INT / Saline Lock Antecubital] Active Medications - Current Medications Current Medications: Generic Name Dose Route Start Last Admin Trade Name Freq PRN Reason Stop Dose Admin Aspirin 325 mg 10/06/20 10:00 10/06/20 09:14 Aspirin PO 325 mg QDAY BRIAN Administration Atorvastatin Calcium 40 mg 10/05/20 22:00 10/05/20 22:10 Lipitor PO 40 mg QHS BRIAN Administration Baclofen 20 mg 10/06/20 14:00 Lioresal PO Q8HR BRIAN Clonidine HCl 0.2 mg 10/05/20 15:00 10/06/20 09:14 Catapres PO 0.2 mg Q12HR BRIAN Administration Clopidogrel Bisulfate 75 mg 10/05/20 11:00 10/06/20 09:14 Plavix PO 75 mg QDAY BRIAN Administration Doxazosin Mesylate 2 mg 10/06/20 12:00 Cardura PO BID BRIAN Enoxaparin Sodium 40 mg 10/07/20 10:00 Enoxaparin SUB-Q QDAY@1000 BRIAN Furosemide 20 mg 10/06/20 12:00 10/06/20 12:45 Lasix PO 20 mg QDAY BRIAN Administration Sodium Chloride 1,000 mls @ 75 mls/hr 10/05/20 11:15 10/05/20 22:10 Nacl 0.9% 1000 Ml IV 75 mls/hr DIRECT BRIAN Administration Ceftriaxone Sodium 1 gm in 50 mls @ 100 mls/hr 10/06/20 10:00 10/06/20 09:14 Rocephin/Ns 1 Gm/50 Ml IV 100 mls/hr Q24HR BRIAN Administration Protocol Insulin Human Lispro 0 unit 10/05/20 11:30 10/06/20 12:40 Humalog SUB-Q Not Given ACHS BRIAN Protocol Labetalol HCl 10 mg 10/05/20 10:55 10/06/20 05:22 Labetalol IV 10 mg Q6HR PRN Administration Hypertension Lactulose 20 gm 10/05/20 10:55 Cephulac PO QHS PRN Constipation Metoprolol Tartrate 12.5 mg 10/06/20 12:00 Metoprolol PO BID [facility] Nifedipine 30 mg 10/06/20 22:00 Procardia Xl PO Q12HR [facility] Ondansetron HCl 4 mg 10/05/20 10:55 Zofran IV Q4H PRN Nausea And Vomiting Tizanidine HCl 4 mg 10/05/20 14:40 10/06/20 08:58 Zanaflex PO 4 mg Q8H PRN Administration Muscle Spasm Tramadol HCl 50 mg 10/05/20 10:55 Ultram PO Q6H PRN Pain, Moderate (4-6) Trazodone HCl 50 mg 10/05/20 10:55 10/05/20 22:10 Desyrel PO 50 mg QHS PRN Administration Insomnia Valacyclovir HCl 1,000 mg 10/06/20 14:00 Valtrex PO 10/16/20 08:01 TID BRIAN Valsartan 160 mg 10/06/20 10:00 10/06/20 12:44 Diovan PO 160 mg BID BRIAN Administration Nutrition/Malnutrition Assess - Dietary Evaluation Nutrition/Malnutrition Findings: Nutrition Notes Start: 10/06/20 13 :08 Freq: Status: Active Protocol: Document 10/06/20 13:08 VALENTÍN (Rec: 10/06/20 13:15 CASERENE [id number]) Nutrition Notes Need for Assessment generated 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 ONS ordered by MD . Burn Absent Trauma Absent Minimum of two criteria No Is patient on ventilator? No Is Patient Ambulatory and/or Out of Bed No REE-([facility]-confined to bed) 2273.508 Calculation Used for Recommendations [facility] Additional Notes Pro needs 1-1.2g/k-90g/ day Fluid needs 1ml/kcal Nutrition Intervention Follow-Up By: 10/08/20 Additional Comments F/U: intakes (meals/ONS), need for full assessment <OSWALDO WONG - Last Filed: 10/08/20 09:17> Assessment and Plan Assessment and plan: I saw and evaluated the patient. I agree with the findings and the plan of care as documented in the Nurse Practitioner's~note, with the following corrections and additions. Hospitalist Physical - Constitutional Vitals: Temp Pulse Resp BP Pulse Ox 98.1 F 75 20 132/92 99 10/07/20 12:50 10/07/20 12:50 10/07/20 12:50 10/07/20 12:50 10/07/20 12:50 HEART Score - HEART Score Troponin: Troponin T < 0.010 ng/mL (0.00-0.029) 10/05/20 07:58 Results - Labs CBC & Chem 7: 10/05/20 07:58 10/07/20 04:29 Labs: Laboratory Last Values WBC 7.4 K/mm3 (4.5-11.0) 10/05/20 07:58 RBC 5.06 M/mm3 (3.65-5.03) H 10/05/20 07:58 Hgb 15.8 gm/dl (11.8-15.2) H 10/05/20 07:58 Hct 45.7 % (35.5-45.6) H 10/05/20 07:58 MCV 90 fl (84-94) 10/05/20 07:58 MCH 31 pg (28-32) 10/05/20 07:58 MCHC 35 % (32-34) H 10/05/20 07:58 RDW 14.5 % (13.2-15.2) 10/05/20 07:58 Plt Count 206 K/mm3 (140-440) 10/05/20 07:58 Lymph % (Auto) 29.6 % (13.4-35.0) 10/05/20 07:58 [place] % (Auto) 6.6 % (0.0-7.3) 10/05/20 07:58 Eos % (Auto) 4.0 % (0.0-4.3) 10/05/20 07:58 Baso % (Auto) 0.9 % (0.0-1.8) 10/05/20 07:58 Lymph # (Auto) 2.2 K/mm3 (1.2-5.4) 10/05/20 07:58 [place] # (Auto) 0.5 K/mm3 (0.0-0.8) 10/05/20 07:58 Eos # (Auto) 0.3 K/mm3 (0.0-0.4) 10/05/20 07:58 Baso # (Auto) 0.1 K/mm3 (0.0-0.1) 10/05/20 07:58 Seg Neutrophils % 58.9 % (40.0-70.0) 10/05/20 07:58 Seg Neutrophils # 4.3 K/mm3 (1.8-7.7) 10/05/20 07:58 PT 16.3 Sec. (12.2-14.9) H 10/05/20 07:58 INR 1.33 (0.87-1.13) H 10/05/20 07:58 APTT 32.7 Sec. (24.2-36.6) 10/05/20 07:58 Thrombin Time 16.6 Sec. (15.1-19.6) 10/05/20 07:58 Sodium 138 mmol/L (137-145) 10/07/20 04:29 Potassium 3.7 mmol/L (3.6-5.0) 10/07/20 04:29 Chloride 105.2 mmol/L (98-107) 10/07/20 04:29 Carbon Dioxide 24 mmol/L (22-30) 10/07/20 04:29 Anion Gap 13 mmol/L 10/07/20 04:29 BUN 7 mg/dL (9-20) L 10/07/20 04:29 Creatinine 1.0 mg/dL (0.8-1.3) 10/07/20 04:29 Estimated GFR > 60 ml/min 10/07/20 04:29 BUN/Creatinine Ratio 7 % 10/07/20 04:29 Glucose 100 mg/dL (75-100) 10/07/20 04:29 POC Glucose 89 mg/dL (70-105) 10/07/20 12:51 Hemoglobin A1c 5.7 % (4-6) 10/05/20 11:15 Calcium 9.4 mg/dL (8.4-10.2) 10/07/20 04:29 Troponin T < 0.010 ng/mL (0.00-0.029) 10/05/20 07:58 Das/IV: Voiding Method Urinal IV Catheter Type [Right INT / Saline Lock Forearm] IV Catheter Type [Right INT / Saline Lock Antecubital] Nutrition/Malnutrition Assess - Dietary Evaluation Nutrition/Malnutrition Findings: Nutrition Notes Start: 10/06/20 13:08 Freq: Status: Active Protocol: Document 10/06/20 13:08 VALENTÍN (Rec: 10/06/20 13:15 [facility] [id number]) Nutrition Notes Need for Assessment generated 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 ONS ordered by MD . Burn Absent Trauma Absent Minimum of two criteria No Is patient on ventilator? No Is Patient Ambulatory and/or Out of Bed No REE-([place]-confined to bed) 0303.228 [facility] Additional Notes Pro needs 1-1.2g/k-90g/ day Fluid needs 1ml/kcal Nutrition Intervention Follow-Up By: 10/08/20 Additional Comments F/U: intakes (meals/ONS), need for full assessment
--- NOTE | 2020-10-06 15:55 | Consultation ---
History of Present Illness Consult date: 10/06/20 Reason for Consult: worsening of left-sided weakness History of present illness: This is a comprehensive neurological consultation on Mr. Ciro Bañuelos who is a very pleasant 60-year-old gentleman with past medical history of right hemispheric stroke left him with baseline left hemiparesis about 5 years ago. He has baseline scanning speech and mild left-sided weakness. Patient reported that he used to take tizanidine but he ran out of it and then started taking gabapentin and after taking it he reported dizziness more weakness on the left side and slurring of the speech therefore he got admitted. His CT scan of the brain did not show any major changes. He was also evaluated by acute stroke team and found that he was not a candidate for any acute thrombolytic therapy. At present patient reports that he is back to his baseline. He also reported that he is extremely claustrophobic therefore he does not want to go for MRI of the brain to confirm or to be ruled out new stroke. He denied missing the dose of his medications as listed in his active medications list. Past History Past Medical History: arthritis, COPD, hypertension, hyperlipidemia, stroke, other (left sided weakness) Past Surgical History: Other (peg placement and removal) Social history: no significant social history Family history: no significant family history Medications and Allergies Allergies Allergy/AdvReac Type Severity Reaction Status Date / Time No Known Allergies Allergy Verified 05/19/18 07:01 Home Medications Medication Instructions Recorded Confirmed Last Taken Type Aspirin [Adult Aspirin] 81 mg PO ONCE 04/21/20 04/29/20 Unknown History Baclofen 20 mg PO TID 04/21/20 04/21/20 Unknown History Clopidogrel [Plavix] 75 mg PO QDAY 04/21/20 04/21/20 Unknown History Gabapentin 300 mg PO QAM 04/21/20 04/21/20 Unknown History Gabapentin 600 mg PO QHS 04/21/20 04/21/20 Unknown History tiZANidine [Zanaflex 4mg TAB] 2 mg PO QAM 04/21/20 04/21/20 Unknown History tiZANidine [Zanaflex 4mg TAB] 4 mg PO QHS 04/21/20 04/21/20 Unknown History traZODone [Desyrel] 100 mg PO QHS 04/21/20 04/21/20 Unknown History AtorvaSTATin [Lipitor] 40 mg PO QHS #30 tablet 04/28/20 Unknown Rx Doxazosin [Cardura] 2 mg PO BID #60 tablet 04/28/20 Unknown Rx Metoprolol [Lopressor TAB] 12.5 mg PO BID #60 tablet 04/28/20 Unknown Rx NIFEdipine XL [Procardia Xl] 30 mg PO Q12HR #60 tablet 04/28/20 Unknown Rx Valacyclovir HCl [Valtrex] 1,000 mg PO TID 10 Days #30 tablet 04/28/20 Unknown Rx Valsartan [Diovan] 160 mg PO BID #60 tablet 04/28/20 Unknown Rx Furosemide [Lasix] 20 mg PO QDAY #14 tablet 06/28/20 Unknown Rx Ciprofloxacin HCl [Ciprofloxacin 500 mg PO Q12HR 7 Days #14 tab 08/16/20 Unknown Rx TAB] Active Meds: Active Medications Aspirin (Aspirin) 325 mg PO QDAY [facility] Last Admin: 10/06/20 09:14 Dose: 325 mg Documented by: Atorvastatin Calcium (Lipitor) 40 mg PO QHS [facility] Last Admin: 10/05/20 22:10 Dose: 40 mg Documented by: Baclofen (Lioresal) 20 mg PO Q8HR [facility] Last Admin: 10/06/20 14:38 Dose: 20 mg Documented by: Clonidine HCl (Catapres) 0.2 mg PO Q12HR [facility] Last Admin: 10/06/20 09:14 Dose: 0.2 mg Documented by: Clopidogrel Bisulfate (Plavix) 75 mg PO QDAY [facility] Last Admin: 10/06/20 09:14 Dose: 75 mg Documented by: Doxazosin Mesylate (Cardura) 2 mg PO BID [facility] Enoxaparin Sodium (Enoxaparin) 40 mg SUB-Q QDAY@1000 BRIAN Furosemide (Lasix) 20 mg PO QDAY [facility] Last Admin: 10/06/20 12:45 Dose: 20 mg Documented by: Sodium Chloride (Nacl 0.9% 1000 Ml) 1,000 mls @ 75 mls/hr IV DIRECT [facility] Last Admin: 10/05/20 22:10 Dose: 75 mls/hr Documented by: Ceftriaxone Sodium (Rocephin/Ns 1 Gm/50 Ml) 1 gm in 50 mls @ 100 mls/hr IV Q24HR [facility]; Protocol Last Admin: 10/06/20 09:14 Dose: 100 mls/hr Documented by: Insulin Human Lispro (Humalog) 0 unit SUB-Q ACHS [facility]; Protocol Last Admin: 10/06/20 12:40 Dose: Not Given Documented by: Labetalol HCl (Labetalol) 10 mg IV Q6HR PRN PRN Reason: Hypertension Last Admin: 10/06/20 05:22 Dose: 10 mg Documented by: Lactulose (Cephulac) 20 gm PO QHS PRN PRN Reason: Constipation Metoprolol Tartrate (Metoprolol) 12.5 mg PO BID [facility] Last Admin: 10/06/20 14:38 Dose: 12.5 mg Documented by: Nifedipine (Procardia Xl) 30 mg PO Q12HR [facility] Ondansetron HCl (Zofran) 4 mg IV Q4H PRN PRN Reason: Nausea And Vomiting Tizanidine HCl (Zanaflex) 4 mg PO Q8H PRN PRN Reason: Muscle Spasm Last Admin: 10/06/20 08:58 Dose: 4 mg Documented by: Tramadol HCl (Ultram) 50 mg PO Q6H PRN PRN Reason: Pain, Moderate (4-6) Trazodone HCl (Desyrel) 50 mg PO QHS PRN PRN Reason: Insomnia Last Admin: 10/05/20 22:10 Dose: 50 mg Documented by: Valacyclovir HCl (Valtrex) 1,000 mg PO TID [facility] Stop: 10/16/20 08:01 Last Admin: 10/06/20 14:37 Dose: 1,000 mg Documented by: Valsartan (Diovan) 160 mg PO BID [facility] Last Admin: 10/06/20 12:44 Dose: 160 mg Documented by: Review of Systems All systems: negative (scanning speech, mild left hemiparesis) Physical Examination - Vital Signs Vital Signs: Vital Signs Resp Pulse Ox 21 98 10/05/20 08:16 10/05/20 08:16 - Physical Exam Narrative exam: Comprehensive Neurological Examinations: Mental status: alert. Fund of knowledge-normal. Affect-appropriate. Recent memory-normal. Remote memory-normal. Attention span-normal. Cognitive function-normal. Thought content/perception-normal Speech-scanning speech Cranial nerves: II Optic: Visual onheem-eemkxqthz-dwjdag. Visual field-normal. III Oculomotor: Bilateral-normal IV Trochlear: Bilateral-normal V Trigeminal: Bilateral-normal. 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 Gait/Station: not tested due to safety of the patient - Constitutional General appearance: comfortable - EENT EENT: Present: ATNC, PERRL, hearing intact, vision intact - Respiratory Respiratory: Present: chest non-tender, no respiratory distress - Cardiovascular Cardiovascular: Present: regular rate Extremities: Present: no peripheral edema bilatateraly - Gastrointestinal Gastrointestinal: Present: soft, non-tender - Integumentary Integumentary: Present: normal - Level of Consciousness 1a. Level of Consciousness: alert/keenly responsive - LOC Questions 1b. LOC Questions: answers both correctly - LOC Command 1c. LOC Commands: performs tasks correctly - Best Gaze 2. Best Gaze: normal - Visual 3. Visual: no visual loss - Facial Palsy 4. Facial Palsy: normal symmetrical movement - Motor Arm 5a. Motor Arm Left: no drift 5b. Motor Arm Right: no drift - Motor Leg 6a. Motor Leg Left: no drift 6b. Motor Leg Right: no drift - Limb Ataxia 7. Limb Ataxia: present 1 limb - Sensory 8. Sensory: normal - Best Language 9. Best Language: no aphasia (scanning speech) - Dysarthria 10. Dysarthria: normal - Extinction and Inattention 11. Extinction/Inattention: no abnormality - Scoring Total Score: 1 Stroke Severity: Minor Stroke Results - Laboratory Findings CBC and BMP: 10/05/20 07:58 10/05/20 07:58 Abnormal Lab Findings: Abnormal Labs 10/05/20 10/05/20 10/05/20 07:58 07:58 07:58 RBC 5.06 H Hgb 15.8 H Hct 45.7 H MCHC 35 H PT 16.3 H INR 1.33 H BUN 8 L Glucose 101 H POC Glucose 10/06/20 11:57 RBC Hgb Hct MCHC PT INR BUN Glucose POC Glucose 120 H - Diagnostic Findings Additional findings: CT scan of the brain revealed low density area in both basal ganglia Assessment and Plan - Patient Problems (1) Encephalopathy acute Current Visit: Yes Status: Acute Plan to address problem: Plan: 1) Likely from medication, sudden withdrawal of tizanidine and or gabapentin at the same time. Patient reported that he is now baseline. (2) Late effects of cerebral ischemic stroke Current Visit: Yes Status: Acute Plan to address problem: Plan: 1) Continue current dual antiplatelet drug along with cholesterol-lowering drug as prescribed 2) Please provide him PT/OT/speech therapy. 3) No further neurological testing since patient is claustrophobic for MRI scan. 4) DVT prophylaxis while the patient is in the hospital. 5) Please provide him secondary stroke prevention education and compliance to taking his medication as well as keeping the doctor's appointment particularly with neurologist as an outpatient. I discussed at length with the patient regarding his condition and possible treatment options. I have answered multiple questions posed by the patient to their best satisfactions. Patient agreed with the plan. Thank you very much for allowing us in the care of your patient. Please call us if you have any questions. Rodolfo Walsh MD Tele-neurologist [phone]
--- NOTE | 2020-10-06 17:35 | Cat Scan Report ---
CTA NECK WITH CONTRAST 10/06/2020 INDICATION / CLINICAL INFORMATION: cva. COMPARISON: None. TECHNIQUE: Routine CTA of the neck is performed. 3-D/MIP reformats were postprocessed. Percentage st enosis is determined by direct quantitative measurements of diseased internal carotid artery diameter compared with normal distal internal carotid artery reference segments or by criteria similar to CURTIS CET where applicable. All CT scans at this location are performed using CT dose reduction for ALARA b y means of automated exposure control. CONTRAST: 100 ml of Isovue 370 FINDINGS: Carotid bifurcations: There is no evidence of carotid bifurcation stenosis. Carotid arteries: No significant abnormality. Cervical vertebral arteries: No significant abnormality. Aortic arch: No significant abnormality. None. IMPRESSION: No significant abnormality. Signer Name: Kael Zaragoza MD Signed: 10/06/2020 5:30 PM Workstation Name: [id number]
--- NOTE | 2020-10-06 17:38 | Cat Scan Report ---
CTA HEAD WITH CONTRAST 10/06/2020 HISTORY: CVA COMPARISON: None. TECHNIQUE: All CT scans at this location are performed using CT dose reduction for ALARA by means of automated exposure control.. 3-D/MIP reformats postprocessed. Percentage stenosis is determined by d irect quantitative measurements of diseased internal carotid artery diameter compared with normal dis beulah internal carotid artery reference segments or by criteria similar to NASCET where applicable. CONTRAST: 100 ml of Isovue 370 FINDINGS: CTA HEAD: Intracranial vertebral arteries: No significant abnormality. Basilar artery: No significant abnormality. Posterior cerebral arteries: No significant abnormality. Intracranial internal carotid arteries: No significant abnormality. Anterior cerebral arteries: No significant abnormality. Middle cerebral arteries: No significant abnormality. Dural venous sinuses:Not optimally opacified. No significant abnormality. Additional findings: None. IMPRESSION: 1. No significant abnormality. Signer Name: Kael Zaragoza MD Signed: 10/06/2020 5:34 PM Workstation Name: [id number]
[2020-10-06] MEDS: DOXAZOSIN 1 MG TAB PO SCH ×2 (17:46→23:17)
[2020-10-06] MEDS: traZODone 50 MG TAB PO PRN (23:18)
[2020-10-06] MEDS: NIFEdipine XL 30 MG TAB PO SCH (23:18)
[2020-10-07] MEDS: BACLOFEN 10 MG TAB PO SCH ×2 (06:13→14:24)
[2020-10-07 06:15] LABS: BUN/Creatinine Ratio 7; Blood Urea Nitrogen 7 mg/dL (9-20); Calcium 9.4 mg/dL (8.4-10.2); Hemolysis Index 2
--- NOTE | 2020-10-07 06:41 | Discharge Summary ---
Providers - Providers Date of Admission: 10/05/20 15:34 Attending physician: OSWALDO WONG MD 10/05/20 10:55 Occupational Therapy Evaluate and Treat [CONS] Stat Comment: Reason For Exam: CVA Physical Therapy Evaluation and Treat [CONS] Stat Comment: Reason For Exam: left sided weakness Speech Therapy Evaluation and Treat [CONS] Stat Reason For Exam: HX cva 10/06/20 06:50 Consult to Dietitian/Nutrition [CONS] Routine Physician Instructions: Reason For Exam: Reason for Consult: eval 10/06/20 08:01 Consult to Physician [CONS] Routine Comment: Consulting Provider: SHASHA DANIEL Physician Instructions: Reason For Exam: CVA Primary care physician: CONSTRUCTION SECRETARY Hospitalization Reason for admission: LEFT SIDED WEAKNESS Condition: Fair Hospital course: -This a 60-year-old male patient arthritis, COPD, HTN, HLD, s/p PEG tube removal and 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 Patient had a CTh in the emergency department which showed no acute hemorrhage or acute core infarct. Neurology was consulted and he was deemed not a candidate for thrombolytics due to K well above 4.5 hours. He was admitted to the hospital service and stroke protocol was initiated with consults to ST/PT. This morning neurology and nutrition were consulted. Patient antihypertensives were also adjusted due to persistent hypertension and closing window for permissive hypertension. (1) CVA (cerebral vascular accident) Current Visit: No Status: Acute Plan to address problem: CVA versus TIA 10/05 CT head shows no acute intracranial abnormality, chronic microvascular changes and stable bibasilar lacunar infarcts from 05/26/2020 Deemed not a candidate for TPA by neurology consult in the emergency department Neurology consulted ST/PT/OT/nutrition consulted Aspirin and statin therapy Aspiration/fall/seizure precautions Permissive hypertension for 24 hours Maintain euthymia and euglycemia 10/06 MRI brain pending 10/06 CTA head/neck pending 10/06 echocardiogram with bubble study pending (2) Hypertension Current Visit: Yes Status: Chronic Plan to address problem: Continue home regimen: Lopressor, doxazosin, furosemide, nifedipine, metoprolol, valsartan and titrate as needed Blood pressure monitoring per protocol As needed antihypertensive first SBP greater than 160 (3) Hyperlipidemia Current Visit: Yes Status: Chronic Plan to address problem: 10/06 lipid panel pending Statin therapy (4) Side effect to Gabapentin (5) EXPRESSIVE APHASIA Disposition: DC/TX-06 HOME UNDER HOME HLTH Time spent for discharge: 35 MINS Core Measure Documentation - Palliative Care Palliative Care/ Comfort Measures: Not Applicable - Core Measures Any of the following diagnoses?: stroke - Stroke Discharge Requirements Statin for LDL = or >70 mg/dl on DC: Yes Anticoag for atrial fib/atrial flutter: Not Applicable Antithrombotic for ischemic stroke: Yes Exam - Physical Exam Narrative exam: General appearance: Present: no acute distress, well-nourished, DYSATHRIA - EENT Eyes: Present: PERRL ENT: hearing intact, clear oral mucosa - Neck Neck: Present: supple, normal ROM - Respiratory Respiratory effort: normal Respiratory: bilateral: CTA - Cardiovascular Heart rate: 48 Heart Sounds: Present: S1 & S2. Absent: rub, click - Extremities Extremities: pulses symmetrical, No edema Peripheral Pulses: within normal limits - Abdominal General gastrointestinal: Present: soft, non-tender, non-distended, normal bowel sounds Male genitourinary: Present: normal - Integumentary Integumentary: Present: clear, warm, dry - Musculoskeletal Musculoskeletal: left sided weakness - Psychiatric Psychiatric: appropriate mood/affect, intact judgment & insight, cooperative - Neurologic Neurologic: CNII-XII intact, moves all extremities - Allied Health Allied health notes reviewed: nursing, PT - Constitutional Vitals: Temp Pulse Resp BP Pulse Ox 97.7 F 91 H 16 161/89 96 10/07/20 04:19 10/07/20 04:19 10/07/20 04:19 10/07/20 04:19 10/07/20 04:19 Plan Activity: advance as tolerated, fall precautions Diet: low fat Special Instructions: record daily weights, record daily BP diary Follow up with: PRIMARY CARE,MD [Primary Care Provider] - 3-5 Days [facility] [Provider Group] - 7 Days Prescriptions: AtorvaSTATin [Lipitor] 40 mg PO QHS #30 tablet Aspirin [Adult Aspirin] 81 mg PO DAILY #30 tablet. Doxazosin [Cardura] 2 mg PO BID #60 tablet Valsartan [Diovan] 160 mg PO BID #60 tablet Furosemide [Lasix TAB] 20 mg PO QDAY #30 tablet Metoprolol [Lopressor TAB] 12.5 mg PO BID #60 tablet Clopidogrel [Plavix] 75 mg PO QDAY #30 tablet NIFEdipine XL [Procardia Xl] 30 mg PO Q12HR #60 tablet tiZANidine [Zanaflex 4mg TAB] 4 mg PO Q8H PRN #90 tablet PRN Reason: Muscle Spasm Other Discharge Orders: Occupational Therapy (Amb) Location: None Selected Physicial Therapy (Amb) Location: None Selected Speech Therapy (Amb) Location: None Selected
[2020-10-07] MEDS: INSULIN LISPRO 100 UNIT/ML VIAL 3 mL SUB-Q SCH ×3 (08:14→19:10)
[2020-10-07] MEDS: valACYclovir 500 MG TAB PO SCH ×2 (08:48→14:24)
[2020-10-07] MEDS: tiZANidine TAB 4 MG TAB PO PRN (09:40)
[2020-10-07] MEDS: cloNIDine 0.2 MG TAB PO SCH (09:40)
[2020-10-07] MEDS: FUROSEMIDE 20 MG TAB PO SCH (09:40)
[2020-10-07] MEDS: CLOPIDOGREL 75 MG TAB PO SCH (09:40)
[2020-10-07] MEDS: NIFEdipine XL 30 MG TAB PO SCH (09:40)
[2020-10-07] MEDS: VALSARTAN 160MG TAB PO SCH (09:40)
[2020-10-07] MEDS: ASPIRIN 325 MG TAB PO SCH (09:40)
[2020-10-07] MEDS: cefTRIAXone/NS 1 GM/50 ML 1 GM/50 ML BAG IV SCH (09:42)
[2020-10-07] MEDS: METOPROLOL TARTRATE 25 MG TAB PO SCH (09:43)
[2020-10-07] MEDS: DOXAZOSIN 1 MG TAB PO SCH (09:44)
[2020-10-07] MEDS ORDERED: ENOXAPARIN 40 MG/0.4 ML INJ SUB-Q SCH (10:00)
[2020-10-07 14:31] VITALS: BP 132/92
== END 2020-10-07 16:50 | disposition home health service (06) ==
LOC: ED 07:39 → 3A 15:34
PROVIDERS: ADMIT Internal Medicine; ATTEND Internal Medicine
DX: I63.9 Cerebral infarction, unspecified (principal); M62.81 Muscle weakness (generalized); I16.9 Hypertensive crisis, unspecified; E78.5 Hyperlipidemia, unspecified; I10 Essential (primary) hypertension; J44.9 Chronic obstructive pulmonary disease, unspecified; M19.90 Unspecified osteoarthritis, unspecified site; R29.703 NIHSS score 3; G93.40 Encephalopathy, unspecified; I69.30 Unspecified sequelae of cerebral infarction; Z98.890 Other specified postprocedural states; Z79.82 Long term (current) use of aspirin; Z79.899 Other long term (current) drug therapy
CPT/HCPCS: 36415; 70450; 70496; 70498; 80048; 82962; 83036; 84484; 85025; 85610; 85670; 85730; 93005; 96361; 96365; 96366; 96372; 96375; 97162; 97166; 99285; A9270; G0378; J0696; J1650; J7030; Q9967

== ENCOUNTER 2020-11-13 18:12 | Observation (INO) | payer MEDICARE, OTHER ==
--- NOTE | 2020-11-13 18:36 | Consultation ---
History of Present Illness History of present illness: [facility] Date of Service: 11/13/2020 18:12:21 Impression: I69.3 - Sequelae of cerebral infarction Comments/Sign-Out: 60 YO M with h/o HTN, HLD and stroke with left sided deficits presented with tightness on the left side that turned into numbness this morning. Recurrence of old stroke vs new stroke. Metrics: Last Known Well: 11/12/2020 18:00:00 [employer] Notification Time: 11/13/2020 18:12:07 Arrival Time: 11/13/2020 18:12:00 Stamp Time: 11/13/2020 18:12:21 Time First Login Attempt: 11/13/2020 18:13:43 Symptoms: slurred speech, numbness on the left side NIHSS Start Assessment Time: 11/13/2020 18:25:18 Patient is not a candidate for Alteplase/Activase. Patient was not deemed candidate for Alteplase/Activase thrombolytics because of Last Well Known Above 4.[address] head was reviewed and results were: Chronic lacunar infarct Right deep white matter. No acute findings. Clinical Presentation is not Suggestive of Large Vessel Occlusive Disease ED Physician notified of diagnostic impression and management plan on 11/13/2020 18:34:14 Our recommendations are outlined below. Recommendations: Activate Stroke Protocol Admission/Order Set Stroke/Telemetry Floor Neuro Checks Bedside Swallow Eval DVT Prophylaxis IV Fluids, Normal Saline Head of Bed 30 Degrees Euglycemia and Avoid Hyperthermia (PRN Acetaminophen) Infectious/metabolic workup per ED MD. Routine Consultation with Inhouse Neurology for Follow up Care Sign Out: Discussed with Emergency Department Provider History of Present Illness: Patient is a 60 year old Male. Patient was brought by EMS for symptoms of slurred speech, numbness on the left side 60 YO M with h/o HTN, HLD and stroke with left sided deficits presented with tightness on the left side that turned into numbness this morning. He started having tightness on his left side yesterday evening and this morning started having numbness and weakness on the left side. He is wheelchair bound since his last stroke 5 years ago but symptoms are worse today. Past Medical History: Hypertension Hyperlipidemia There is NO history of Diabetes Mellitus Anticoagulant use: No Antiplatelet use: plavix Examination: BP(200/105), Pulse(62), Blood Glucose(107) 1A: Level of Consciousness - Alert; keenly responsive + 0 1B: Ask Month and Age - Both Questions Right + 0 1C: Blink Eyes & Squeeze Hands - Performs Both Tasks + 0 2: Test Horizontal Extraocular Movements - Normal + 0 3: Test Visual Boland - No Visual Loss + 0 4: Test Facial Palsy (Use Grimace if Obtunded) - Normal symmetry + 0 5A: Test Left Arm Motor Drift - Drift, but doesn't hit bed + 1 5B: Test Right Arm Motor Drift - No Drift for 10 Seconds + 0 6A: Test Left Leg Motor Drift - No Effort Against [place] + 3 6B: Test Right Leg Motor Drift - Drift, hits bed + 2 7: Test Limb Ataxia (FNF/Heel-Sotomayor) - No Ataxia + 0 8: Test Sensation - Normal; No sensory loss + 0 9: Test Language/Aphasia - Normal; No aphasia + 0 10: Test Dysarthria - Mild-Moderate Dysarthria: Slurring but can be understood + 1 11: Test Extinction/Inattention - No abnormality + 0 NIHSS Score: 7 Pre-Morbid Modified Ranking Scale: 4 Points = Moderately severe disability; unable to walk and attend to bodily needs without assistance Patient/Family was informed the Neurology Consult would happen via TeleHealth consult by way of interactive audio and video telecommunications and consented to receiving care in this manner. Due to the immediate potential for life-threatening deterioration due to underlying acute neurologic illness, I spent 25 minutes providing critical care. This time includes time for face to face visit via telemedicine, review of medical records, imaging studies and discussion of findings with providers, the patient and/or family. Dr Aj [facility] Case [id number] Medications and Allergies Allergies Allergy/AdvReac Type Severity Reaction Status Date / Time No Known Allergies Allergy Verified 05/19/18 07:01 Home Medications Medication Instructions Recorded Confirmed Last Taken Type traZODone [Desyrel] 100 mg PO QHS 04/21/20 10/07/20 Unknown History Aspirin [Adult Aspirin] 81 mg PO DAILY #30 tablet. 10/07/20 Unknown Rx AtorvaSTATin [Lipitor] 40 mg PO QHS #30 tablet 10/07/20 Unknown Rx Clopidogrel [Plavix] 75 mg PO QDAY #30 tablet 10/07/20 Unknown Rx Doxazosin [Cardura] 2 mg PO BID #60 tablet 10/07/20 Unknown Rx Furosemide [Lasix TAB] 20 mg PO QDAY #30 tablet 10/07/20 Unknown Rx Metoprolol [Lopressor TAB] 12.5 mg PO BID #60 tablet 10/07/20 Unknown Rx NIFEdipine XL [Procardia Xl] 30 mg PO Q12HR #60 tablet 10/07/20 Unknown Rx Valsartan [Diovan] 160 mg PO BID #60 tablet 10/07/20 Unknown Rx cloNIDine [Catapres] 0.2 mg PO BID 10/07/20 10/07/20 Unknown History tiZANidine [Zanaflex 4mg TAB] 4 mg PO Q8H PRN #90 tablet 10/07/20 Unknown Rx valACYclovir [Valtrex] 1,000 mg PO TID tablet 10/07/20 Unknown Rx
--- NOTE | 2020-11-13 18:46 | Cat Scan Report ---
CT HEAD WITHOUT CONTRAST INDICATION / CLINICAL INFORMATION: Cerebrovascular accident. Left-sided weakness. Code stroke. TECHNIQUE: All CT scans at this location are performed using CT dose reduction for ALARA by means of automated e xposure control. COMPARISON: CT 10/05/2020 FINDINGS: HEMORRHAGE: No evidence of intracranial hemorrhage or extra-axial fluid collection. EXTRA-AXIAL SPACES: Cortical sulci and sylvian fissures are mildly enlarged reflecting a degree of pa renchymal volume loss which is somewhat greater than expected for the patient's age of . Basilar cist erns have an unremarkable appearance. VENTRICULAR SYSTEM: The third and lateral ventricles are within normal limits for size and configurat ion.. CEREBRAL PARENCHYMA: Periventricular and deep white matter lucency is observed. This is probably seco ndary to microvascular ischemic change. There is no indication of recent infarction. Multiple remote small deep infarctions are identified. There is decreased attenuation in the anterior limb of the rig ht internal capsule. Small deep infarctions are observed in a left gangliocapsular distribution and i n the posterior aspect of the left camejo radiata. MIDLINE SHIFT OR HERNIATION: There is no mass effect. CEREBELLUM / BRAINSTEM: Brainstem has an unremarkable appearance. Age related cerebellar atrophy is n oted. MIDLINE STRUCTURES:Pituitary gland has an unremarkable appearance. No abnormalities are seen in the p ineal region. INTRACRANIAL VESSELS:Calcified atherosclerotic plaque is present along the course of the cavernous se gments of both internal carotid arteries. Similar findings are seen at the distal vertebral arteries. ORBITS: visualized portions of the orbits have an unremarkable appearance. SOFT TISSUES of HEAD: No significant abnormality. CALVARIUM: Evaluation of bone windows reveals no abnormalities. PARANASAL SINUSES / MASTOID AIR CELLS: Small retention cysts dentigerous cysts or polyps are again de monstrated at the base of both maxillary sinuses. Paranasal sinuses are otherwise free from inflammat ory mucosal disease. Mastoid air cells are not significantly changed from prior study. IMPRESSION: 1. Multiple remote small deep infarctions. 2. No acute intracranial abnormality. No significant interval change in comparison to previous study. CODE STROKE: Time of Communication (LINE PULLER/CDT): 2344 Central standard time Licensed Practitioner Receiving Report: [facility] emergency department physici an. Signer Name: Miki Tompkins MD Signed: 11/13/2020 6:41 PM Workstation Name: [id number]
[2020-11-13 19:09] LABS: Hemoglobin 17.5 gm/dl (11.8-15.2); Mean Corpuscular HGB Conc 34 % (32-34); Mean Corpuscular Volume 91 fl (84-94); Platelet Count 178 K/mm3 (140-440)
[2020-11-13 19:10] LABS: Basophils % (Auto) 0.7 % (0.0-1.8); Eosinophils % (Auto) 5.9 % (0.0-4.3); Lymphocytes % (Auto) 14.8 % (13.4-35.0); Monocytes % (Auto) 4.3 % (0.0-7.3)
[2020-11-13 19:11] LABS: Eosinophils # (Auto) 0.4 K/mm3 (0.0-0.4); INR 1.15 (0.87-1.13); Monocytes # (Auto) 0.3 K/mm3 (0.0-0.8)
[2020-11-13 19:12] LABS: Partial Thromboplastin Time 29.7 Sec. (24.2-36.6); Thrombin Time 17.3 Sec. (15.1-19.6)
[2020-11-13 19:14] LABS: Creatine Kinase MB 1.6 ng/mL (0.0-4.0)
[2020-11-13 20:22] LABS: Alanine Aminotransferase 23 units/L (7-56); Albumin 3.9 g/dL (3.9-5); BUN/Creatinine Ratio 10; Blood Urea Nitrogen 11 mg/dL (9-20); Hemolysis Index 25
--- NOTE | 2020-11-13 21:06 | XRay Report ---
CHEST 1 VIEW 8:35 PM INDICATION / CLINICAL INFORMATION: Shortness of breath. COMPARISON: 06/28/20. FINDINGS: SUPPORT DEVICES: None. HEART / MEDIASTINUM: The heart size and pulmonary vasculature are normal. There is mild aortic tortuo sity without aneurysm. LUNGS / PLEURA: No significant pulmonary or pleural abnormality. No pneumothorax. ADDITIONAL FINDINGS: No significant additional findings. IMPRESSION: No acute abnormality or significant change. Signer Name: Gab Arenas MD Signed: 11/13/2020 9:01 PM Workstation Name: [id number]
--- NOTE | 2020-11-13 21:41 | Emergency Department Report ---
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 Patient states he feels like his left arm and leg has "lost circulation". Code stroke was called and patient deemed not to be a TPA candidate with questionable acute nature of current complaints. As per medical record review patient has been to the hospital several times for similar complaints with last admission October 05 until October 07, 2020. Patient complaint of worsening left-sided upper and lower extremity weakness and self-reported disorientation with gabapentin. Patient had a unchanged CT head with a negative CT angio head and neck. This document MR was pending but it was not performed prior to patient discharge. Patient has a history medication noncompliance and states he is currently taking all his medication. After initial stroke evaluation patient complaining of some shortness of breath however, does not appear to be tachypneic and has a room air saturation of 100%. - Related Data Home Medications: Home Medications Medication Instructions Recorded Confirmed Last Taken traZODone [Desyrel] 100 mg PO QHS 04/21/20 10/07/20 Unknown cloNIDine [Catapres] 0.2 mg PO BID 10/07/20 10/07/20 Unknown Previous Rx's Medication Instructions Recorded Last Taken Type Aspirin [Adult Aspirin] 81 mg PO DAILY #30 tablet. 10/07/20 Unknown Rx AtorvaSTATin [Lipitor] 40 mg PO QHS #30 tablet 10/07/20 Unknown Rx Clopidogrel [Plavix] 75 mg PO QDAY #30 tablet 10/07/20 Unknown Rx Doxazosin [Cardura] 2 mg PO BID #60 tablet 10/07/20 Unknown Rx Furosemide [Lasix TAB] 20 mg PO QDAY #30 tablet 10/07/20 Unknown Rx Metoprolol [Lopressor TAB] 12.5 mg PO BID #60 tablet 10/07/20 Unknown Rx NIFEdipine XL [Procardia Xl] 30 mg PO Q12HR #60 tablet 10/07/20 Unknown Rx Valsartan [Diovan] 160 mg PO BID #60 tablet 10/07/20 Unknown Rx tiZANidine [Zanaflex 4mg TAB] 4 mg PO Q8H PRN #90 tablet 10/07/20 Unknown Rx valACYclovir [Valtrex] 1,000 mg PO TID tablet 10/07/20 Unknown Rx Allergies/Adverse Reactions: Allergies Allergy/AdvReac Type Severity Reaction Status Date / Time No Known Allergies Allergy Verified 05/19/18 07:01 ED Review of Systems ROS: Stated complaint: POSS STROKE Other details as noted in HPI Comment: All other systems reviewed and negative ED Past Medical Hx - Past Medical History Hx Hypertension: Yes Hx CVA: Yes (right CVA with left hemiplegia 10/2015) Hx Congestive Heart Failure: No Hx Diabetes: Yes Hx Renal Disease: No Hx Arthritis: Yes Hx Seizures: No Hx Asthma: No Hx COPD: Yes (no home O2) Hx HIV: No Additional medical history: CVA 10/21. high cholesterol - Surgical History Hx Pacemaker: No Additional Surgical History: PEG tube placement and removal - Social History Smoking Status: Former Smoker - Medications Home Medications: Home Medications Medication Instructions Recorded Confirmed Last Taken Type traZODone [Desyrel] 100 mg PO QHS 04/21/20 10/07/20 Unknown History Aspirin [Adult Aspirin] 81 mg PO DAILY #30 tablet. 10/07/20 Unknown Rx AtorvaSTATin [Lipitor] 40 mg PO QHS #30 tablet 10/07/20 Unknown Rx Clopidogrel [Plavix] 75 mg PO QDAY #30 tablet 10/07/20 Unknown Rx Doxazosin [Cardura] 2 mg PO BID #60 tablet 10/07/20 Unknown Rx Furosemide [Lasix TAB] 20 mg PO QDAY #30 tablet 10/07/20 Unknown Rx Metoprolol [Lopressor TAB] 12.5 mg PO BID #60 tablet 10/07/20 Unknown Rx NIFEdipine XL [Procardia Xl] 30 mg PO Q12HR #60 tablet 10/07/20 Unknown Rx Valsartan [Diovan] 160 mg PO BID #60 tablet 10/07/20 Unknown Rx cloNIDine [Catapres] 0.2 mg PO BID 10/07/20 10/07/20 Unknown History tiZANidine [Zanaflex 4mg TAB] 4 mg PO Q8H PRN #90 tablet 10/07/20 Unknown Rx valACYclovir [Valtrex] 1,000 mg PO TID tablet 10/07/20 Unknown Rx ED Neuro Physical Exam - General Limitations: No Limitations Suspected Stroke: Yes - NIHSS Assessment Interval: Baseline 1a. Level of Consciousness: alert/keenly responsive 1b. LOC Questions: answers both correctly 1c. LOC Commands: performs tasks correctly 2. Best Gaze: normal 3. Visual: no visual loss 4. Facial Palsy: normal symmetrical movement 5b. Motor Arm Right: no drift 5a. Motor Arm Left: drift 6a. Motor Leg Left: some gravity effort 6b. Motor Leg Right: drift 7. Limb Ataxia: absent 8. Sensory: mild/moderate sensory loss 9. Best Language: no aphasia 10. Dysarthria: mild/moderate dysarthria 11. Extinction/Inattention: no abnormality Total Score: 6 Stroke Severity: Moderate Stroke - Other Other exam information: General: No acute distress Head: Atraumatic Eyes: normal appearance ENT: Moist mucous membranes Neck: Normal appearance, no midline tenderness Chest: Clear to auscultation bilaterally CV: Regular rate and rhythm Abdomen: Soft, normal bowel sounds, nontender, nondistended, no rebound or guarding Back: Normal inspection Extremity: Bilateral lower extremity pitting edema left greater than right. Neuro: Alert O x 3, see NIH stroke scale Psych: Appropriate behavior Skin: No rash ED Course Vital Signs 11/13/20 19:09 Temperature 97.8 F Pulse Rate 55 L Respiratory 18 Rate Blood Pressure 211/97 [Right] O2 Sat by Pulse 99 Oximetry - Lab Data Result diagrams: 11/13/20 18:40 11/13/20 18:40 Lab Results 11/13/20 11/13/20 11/13/20 Range/Units 18:40 18:40 18:40 WBC 7.0 (4.5-11.0) K/mm3 RBC 5.70 H (3.65-5.03) M/mm3 Hgb 17.5 H (11.8-15.2) gm/dl Hct 52.0 H (35.5-45.6) % MCV 91 (84-94) fl MCH 31 (28-32) pg MCHC 34 (32-34) % RDW 15.0 (13.2-15.2) % Plt Count 178 (140-440) K/mm3 Lymph % (Auto) 14.8 (13.4-35.0) % Schley % (Auto) 4.3 (0.0-7.3) % Eos % (Auto) 5.9 H (0.0-4.3) % Baso % (Auto) 0.7 (0.0-1.8) % Lymph # (Auto) 1.0 L (1.2-5.4) K/mm3 Schley # (Auto) 0.3 (0.0-0.8) K/mm3 Eos # (Auto) 0.4 (0.0-0.4) K/mm3 Baso # (Auto) 0.0 (0.0-0.1) K/mm3 Seg Neutrophils % 74.3 H (40.0-70.0) % Seg Neutrophils # 5.2 (1.8-7.7) K/mm3 PT 14.6 (12.2-14.9) Sec. INR 1.15 H (0.87-1.13) APTT 29.7 (24.2-36.6) Sec. Thrombin Time 17.3 (15.1-19.6) Sec. Sodium (137-145) mmol/L Potassium (3.6-5.0) mmol/L Chloride (98-107) mmol/L Carbon Dioxide (22-30) mmol/L Anion Gap mmol/L BUN (9-20) mg/dL Creatinine (0.8-1.3) mg/dL Estimated GFR ml/min BUN/Creatinine Ratio % Glucose (75-100) mg/dL Calcium (8.4-10.2) mg/dL Total Bilirubin (0.1-1.2) mg/dL AST (5-40) units/L ALT (7-56) units/L Alkaline Phosphatase (35-129) units/L Total Creatine Kinase 109 (55-170) units/L CK-MB (CK-2) 1.6 (0.0-4.0) ng/mL CK-MB (CK-2) Rel Index 1.4 (0-4) Troponin T < 0.010 (0.00-0.029) ng/mL Total Protein (6.3-8.2) g/dL Albumin (3.9-5) g/dL Albumin/Globulin Ratio % Urine Color (Yellow) Urine Turbidity (Clear) Urine pH (5.0-7.0) Ur Specific Fulton (1.003-1.030) Urine Protein (Negative) mg/dL Urine Glucose (UA) (Negative) mg/dL Urine Ketones (Negative) mg/dL Urine Blood (Negative) Urine Nitrite (Negative) Urine Bilirubin (Negative) Urine Urobilinogen (<2.0) mg/dL Ur Leukocyte Esterase (Negative) Urine WBC (Auto) (0.0-6.0) /HPF Urine RBC (Auto) (0.0-6.0) /HPF U Epithel Cells (Auto) (0-13.0) /HPF Urine Bacteria (Auto) (Negative) /HPF 11/13/20 11/13/20 Range/Units 18:40 Unknown WBC (4.5-11.0) K/mm3 RBC (3.65-5.03) M/mm3 Hgb (11.8-15.2) gm/dl Hct (35.5-45.6) % MCV (84-94) fl MCH (28-32) pg MCHC (32-34) % RDW (13.2-15.2) % Plt Count (140-440) K/mm3 Lymph % (Auto) (13.4-35.0) % Schley % (Auto) (0.0-7.3) % Eos % (Auto) (0.0-4.3) % Baso % (Auto) (0.0-1.8) % Lymph # (Auto) (1.2-5.4) K/mm3 Schley # (Auto) (0.0-0.8) K/mm3 Eos # (Auto) (0.0-0.4) K/mm3 Baso # (Auto) (0.0-0.1) K/mm3 Seg Neutrophils % (40.0-70.0) % Seg Neutrophils # (1.8-7.7) K/mm3 PT (12.2-14.9) Sec. INR (0.87-1.13) APTT (24.2-36.6) Sec. Thrombin Time (15.1-19.6) Sec. Sodium 137 (137-145) mmol/L Potassium 4.1 (3.6-5.0) mmol/L Chloride 103.0 (98-107) mmol/L Carbon Dioxide 18 L (22-30) mmol/L Anion Gap 20 mmol/L BUN 11 (9-20) mg/dL Creatinine 1.1 (0.8-1.3) mg/dL Estimated GFR > 60 ml/min BUN/Creatinine Ratio 10 % Glucose 97 (75-100) mg/dL Calcium 10.0 (8.4-10.2) mg/dL Total Bilirubin 0.50 (0.1-1.2) mg/dL AST 20 (5-40) units/L ALT 23 (7-56) units/L Alkaline Phosphatase 129 (35-129) units/L Total Creatine Kinase (55-170) units/L CK-MB (CK-2) (0.0-4.0) ng/mL CK-MB (CK-2) Rel Index (0-4) Troponin T (0.00-0.029) ng/mL Total Protein 8.8 H (6.3-8.2) g/dL Albumin 3.9 (3.9-5) g/dL Albumin/Globulin Ratio 0.8 % Urine Color Straw (Yellow) Urine Turbidity Clear (Clear) Urine pH 7.0 (5.0-7.0) Ur Specific [place] 1.003 (1.003-1.030) Urine Protein <15 mg/dl (Negative) mg/dL Urine Glucose (UA) Neg (Negative) mg/dL Urine Ketones Neg (Negative) mg/dL Urine Blood Sm (Negative) Urine Nitrite Neg (Negative) Urine Bilirubin Neg (Negative) Urine Urobilinogen < 2.0 (<2.0) mg/dL Ur Leukocyte Esterase Neg (Negative) Urine WBC (Auto) < 1.0 (0.0-6.0) /HPF Urine RBC (Auto) 1.0 (0.0-6.0) /HPF U Epithel Cells (Auto) < 1.0 (0-13.0) /HPF Urine Bacteria (Auto) 1+ (Negative) /HPF - EKG Data -: EKG Interpreted by Mo EKG shows normal: sinus rhythm, ST-T waves (no stemi) Rate: normal When compared to previous EKG there are: no significant change - Radiology Data Radiology results: report reviewed CHEST 1 VIEW 8:35 PM INDICATION / CLINICAL INFORMATION: Shortness of breath. COMPARISON: 06/28/20. FINDINGS: SUPPORT DEVICES: None. HEART / MEDIASTINUM: The heart size and pulmonary vasculature are normal. There is mild aortic tortuosity without aneurysm. LUNGS / PLEURA: No significant pulmonary or pleural abnormality. No pneumothorax. ADDITIONAL FINDINGS: No significant additional findings. IMPRESSION: No acute abnormality or significant change. - Medical Decision Making 60-year-old male presents to the hospital complaining of worsening left-sided weakness and edema. Patient has been here in the past with similar symptoms as recent as September. It is documented that MRI was pending however, there was no MRI before that time. Please be compliant with his medications. Patient has cleared his shortness of breath with unremarkable chest x-ray and normal pulse ox and respiratory rate. At this time is difficult to determine if patient has any acute weakness and will be admitted to the hospitalist service for further neurology evaluation Critical Care Time: No Critical care attestation.: If time is entered above; I have spent that time in minutes in the direct care of this critically ill patient, excluding procedure time. ED Disposition Clinical Impression: Late effects of cerebral ischemic stroke, Weakness, Left-sided weakness, Leg edema, HTN (hypertension) Disposition: OP ADMIT IP TO THIS HOSP Is pt being admited?: Yes Condition: Stable Instructions: Hypertension (ED) Time of Disposition: 22:25 (Dr marroquin/hospitalist)
[2020-11-13 21:44] LABS: Bacteria,Urine 1+ /HPF (Negative); Bilirubin,Urine NEG (Negative); Blood,Urine SM (Negative); Color,Urine Straw (Yellow); Protein,Urine <15 mg/dL mg/dL (Negative); Urobilinogen,Urine < 2.0 mg/dL (<2.0); WBC,Urine < 1.0 /HPF (0.0-6.0)
[2020-11-13] MEDS ORDERED: METOCLOPRAMIDE 10 MG TAB PO PRN (22:34)
[2020-11-13] MEDS ORDERED: PROMETHAZINE 25 MG RECT SUPP PR PRN (22:34)
[2020-11-13] MEDS ORDERED: MAGNESIUM HYDROXIDE (MOM) ORAL LIQD UDC PO PRN (22:34)
[2020-11-13] MEDS ORDERED: DEXTROSE 50% IN WATER (25GM) 50 ML SYRINGE IV PRN (22:34)
[2020-11-13] MEDS ORDERED: ONDANSETRON 4 MG/2 ML INJ IV PRN ×2 (22:34)
[2020-11-13] MEDS ORDERED: ACETAMINOPHEN 325 MG TAB PO PRN ×2 (22:34)
[2020-11-13] MEDS ORDERED: MORPHINE 2 MG/1 ML INJ IV PRN (22:34)
--- NOTE | 2020-11-13 22:51 | History and Physical Report ---
History of Present Illness Date of examination: 11/13/20 Date of admission: 11/13/2020 Chief complaint: Left-sided weakness History of present illness: 60-year-old male with known history of CVA in 2014 with left-sided deficits, COPD, dyslipidemia and hypertension presenting to the emergency room today complaining of worsening left-sided weakness which started yesterday. Patient indicates that he has had increased heaviness and lower extremity swelling for about a week. Patient denies any numbness. He denies any headache or dizziness. He denies any chest pain or shortness of breath, no fever or chills, no nausea vomiting, no abdominal pain, no diarrhea, no history of sick contacts or recent travel. Denies any contact with anyone with COVID-19. Review of patient's record indicates that patient was in the hospital sometime in September 2020 presenting with similar symptoms. CT of the head at that time was negative. Was supposed to be undergoing MRI of the brain which he did not do prior to discharge. He is also known to be noncompliant with his medication however indicates that he has been quite compliant lately. Work-up in the emergency room today CT scan of the head shows no acute findings. Labs were also unremarkable. Patient was evaluated by the teleneurologist and recommendation is to have patient worked up for possible CVA. Past History Past Medical History: arthritis, COPD, diabetes, hypertension, stroke (With left-sided weakness in 2014) Past Surgical History: Other (PEG tube placement and removal) Social history: smoking (Former smoker) Medications and Allergies Allergies Allergy/AdvReac Type Severity Reaction Status Date / Time No Known Allergies Allergy Verified 05/19/18 07:01 Home Medications Medication Instructions Recorded Confirmed Last Taken Type traZODone [Desyrel] 100 mg PO QHS PRN 04/21/20 11/14/20 Unknown History Aspirin [Adult Aspirin] 81 mg PO DAILY #30 tablet. 10/07/20 11/14/20 Unknown Rx Clopidogrel [Plavix] 75 mg PO QDAY #30 tablet 10/07/20 11/14/20 Unknown Rx Valsartan [Diovan] 160 mg PO BID #60 tablet 10/07/20 11/14/20 Unknown Rx cloNIDine [Catapres] 0.2 mg PO QHS 10/07/20 11/14/20 Unknown History amLODIPine [Norvasc] 5 mg PO DAILY 11/14/20 11/14/20 Unknown History tiZANidine [Zanaflex 4mg TAB] 2 mg PO Q8H PRN 11/14/20 11/14/20 Unknown History Review of Systems Constitutional: no fever, no chills Ears, nose, mouth and throat: no nasal congestion, no sore throat Cardiovascular: no chest pain, no palpitations Respiratory: no cough, no shortness of breath Gastrointestinal: no abdominal pain, no nausea, no vomiting, no diarrhea Genitourinary Male: no dysuria, no hematuria, no flank pain, no nocturia Musculoskeletal: no neck pain, no low back pain Integumentary: no rash, no pruritis Neurological: weakness (Left sided.), no headaches, no change in speech, no confusion, no memory loss Psychiatric: no anxiety, no depression Exam - Constitutional Vitals: Temp Pulse Resp BP Pulse Ox 97.8 F 55 L 18 211/97 99 11/13/20 19:09 11/13/20 19:11/13/20 19:11/13/20 19:11/13/20 19:09 General appearance: Present: no acute distress, well-nourished - EENT Eyes: Present: PERRL, EOM intact. Absent: scleral icterus ENT: hearing intact, clear oral mucosa, dentition normal - Neck Neck: Present: supple, normal ROM - Respiratory Respiratory effort: normal Respiratory: bilateral: CTA - Cardiovascular Rhythm: regular Heart Sounds: Present: S1 & S2. Absent: gallop, systolic murmur, diastolic murmur, rub - Extremities Extremities: no ischemia, pulses intact, pulses symmetrical, normal temperature, normal color Extremity abnormal: edema (2+ bilateral lower extremity edema) Peripheral Pulses: within normal limits - Abdominal General gastrointestinal: Present: soft, non-tender, non-distended, normal bowel sounds. Absent: mass - Integumentary Integumentary: Present: clear, warm, dry. Absent: rash - Musculoskeletal Musculoskeletal: left sided weakness - Psychiatric Psychiatric: appropriate mood/affect, intact judgment & insight, memory intact, cooperative - Neurologic Neurologic: CNII-XII intact, no focal deficits, moves all extremities HEART Score - HEART Score Troponin: Troponin T < 0.010 ng/mL (0.00-0.029) 11/13/20 18:40 Results - Labs CBC & Chem 7: 11/13/20 18:40 11/13/20 18:40 Labs: Abnormal lab results 11/13/20 11/13/20 11/13/20 Range/Units 18:40 18:40 18:40 RBC 5.70 H (3.65-5.03) M/mm3 Hgb 17.5 H (11.8-15.2) gm/dl Hct 52.0 H (35.5-45.6) % Eos % (Auto) 5.9 H (0.0-4.3) % Lymph # (Auto) 1.0 L (1.2-5.4) K/mm3 Seg Neutrophils % 74.3 H (40.0-70.0) % INR 1.15 H (0.87-1.13) Carbon Dioxide 18 L (22-30) mmol/L Total Protein 8.8 H (6.3-8.2) g/dL Assessment and Plan - Patient Problems (1) Left-sided weakness Current Visit: Yes Status: Acute Plan to address problem: Patient has a known history of a CVA in 2014 with left-sided deficit. Patient will be worked up for possible new CVA today. We will commence patient on daily aspirin and also continue on statin. We will schedule patient for MRI of the brain. Consult to neurology for further evaluation and recommendation. (2) Leg edema Current Visit: Yes Status: Acute Plan to address problem: Etiology is unclear. This may be dependent edema. Patient is wheelchair-bound secondary to his history of CVA. We encourage elevation of the lower extremities. (3) Hypertension Current Visit: No Status: Chronic Plan to address problem: We will resume routine home medications and monitor vital signs closely. (4) Hyperlipidemia Current Visit: No Status: Chronic Plan to address problem: Patient on statin. Will monitor lipid profile. (5) Diabetes mellitus Current Visit: Yes Status: Acute Plan to address problem: We will monitor Accu-Cheks to maintain adequate glycemic control. (6) DVT prophylaxis Current Visit: No Status: Acute Plan to address problem: Placed on anticoagulation with Lovenox . (7) Full code status Current Visit: No Status: Acute Plan to address problem: Patient is full code.
[2020-11-14] MEDS ORDERED: tiZANidine TAB 4 MG TAB PO PRN (01:05)
[2020-11-14] MEDS ORDERED: hydrALAZINE 20 MG/1 ML INJ IV PRN (01:09)
[2020-11-14] MEDS: tiZANidine TAB 4 MG TAB PO SCH ×2 (01:27→22:04)
[2020-11-14] MEDS: traZODone 100 MG TAB PO SCH ×2 (02:31→22:04)
[2020-11-14] MEDS ORDERED: amLODIPine 5 MG TAB PO ONE (05:20)
[2020-11-14 05:30] LABS: INR 1.19 (0.87-1.13)
[2020-11-14] MEDS ORDERED: VALSARTAN 160MG TAB PO ONE (05:30)
[2020-11-14 06:09] LABS: Basophils % (Auto) 0.3 % (0.0-1.8); Eosinophils # (Auto) 0.1 K/mm3 (0.0-0.4); Eosinophils % (Auto) 1.2 % (0.0-4.3); Hematocrit 52.8 % (35.5-45.6); Hemoglobin 17.7 gm/dl (11.8-15.2); Lymphocytes # (Auto) 1.5 K/mm3 (1.2-5.4); Lymphocytes % (Auto) 12.3 % (13.4-35.0); Mean Corpuscular HGB Conc 34 % (32-34); Mean Corpuscular Volume 91 fl (84-94); Monocytes # (Auto) 0.7 K/mm3 (0.0-0.8); Monocytes % (Auto) 5.7 % (0.0-7.3); Platelet Count 254 K/mm3 (140-440); Red Blood Count 5.82 M/mm3 (3.65-5.03); Red Cell Distribution Width 14.4 % (13.2-15.2)
[2020-11-14 06:25] LABS: BUN/Creatinine Ratio 11; Blood Urea Nitrogen 9 mg/dL (9-20); Calcium 9.4 mg/dL (8.4-10.2); Chol/HDL Ratio 2.85 %; HDL Cholesterol 61 mg/dL (40-59); Hemolysis Index 25; LDL Cholesterol,Direct 96 mg/dL (50-130)
[2020-11-14] MEDS: INSULIN LISPRO 100 UNIT/ML VIAL 3 mL SUB-Q SCH ×4 (08:30→22:05)
--- NOTE | 2020-11-14 10:37 | Consultation ---
History of Present Illness Consult date: 11/14/20 Reason for Consult: CVA Chief complaint: Left-sided numbness/weakness History of present illness: 60 yo male with htn, hld, stroke w/ left-sided weakness, who presents c/o high blood pressure, swelling at left face, and swelling at legs. The patient notes also left arm/leg numbness/weakness. Notes a slight shortness of breath w/o cough fever/chills. Past History Past Medical History: arthritis, COPD, diabetes, hypertension, stroke (With left-sided weakness in 2014) Past Surgical History: Other (PEG tube placement and removal) Social history: smoking (Former smoker) Medications and Allergies Allergies Allergy/AdvReac Type Severity Reaction Status Date / Time No Known Allergies Allergy Verified 05/19/18 07:01 Home Medications Medication Instructions Recorded Confirmed Last Taken Type traZODone [Desyrel] 100 mg PO QHS PRN 04/21/20 11/14/20 Unknown History Aspirin [Adult Aspirin] 81 mg PO DAILY #30 tablet. 10/07/20 11/14/20 Unknown Rx Clopidogrel [Plavix] 75 mg PO QDAY #30 tablet 10/07/20 11/14/20 Unknown Rx Valsartan [Diovan] 160 mg PO BID #60 tablet 10/07/20 11/14/20 Unknown Rx cloNIDine [Catapres] 0.2 mg PO QHS 10/07/20 11/14/20 Unknown History amLODIPine [Norvasc] 5 mg PO DAILY 11/14/20 11/14/20 Unknown History tiZANidine [Zanaflex 4mg TAB] 2 mg PO Q8H PRN 11/14/20 11/14/20 Unknown History Active Meds: Active Medications Acetaminophen (Acetaminophen 325 Mg Tab) 650 mg PO Q4H PRN PRN Reason: Pain MILD(1-3)/Fever >100.5/RAMIREZ Amlodipine Besylate (Amlodipine 5 Mg Tab) 5 mg PO QDAY BRIAN Aspirin (Aspirin 325 Mg Tab) 325 mg PO QDAY BRIAN Atorvastatin Calcium (Atorvastatin 40 Mg Tab) 40 mg PO QHS [facility] Bisacodyl (Bisacodyl 10 Mg Rect Supp) [address] QDAY PRN PRN Reason: Constipation Clonidine HCl (Clonidine 0.2 Mg Tab) 0.2 mg PO HS BRIAN Clopidogrel Bisulfate (Clopidogrel 75 Mg Tab) 75 mg PO QDAY BRIAN Dextrose (Dextrose 50% In Water (25gm) 50 Ml Syringe) 0 ml IV Q30MIN PRN; Protocol PRN Reason: Hypoglycemia Enoxaparin Sodium (Enoxaparin 40 Mg/0.4 Ml Inj) 40 mg SUB-Q QDAY@2200 [facility]; Protocol Hydralazine HCl (Hydralazine 20 Mg/1 Ml Inj) 10 mg IV Q6H PRN PRN Reason: Hypertension Last Admin: 11/14/20 01:27 Dose: 10 mg Documented by: Insulin Human Lispro (Insulin Lispro 100 Unit/Ml Vial 3 Ml) 0 unit SUB-Q ACHS [facility]; Protocol Last Admin: 11/14/20 08:30 Dose: Not Given Documented by: Magnesium Hydroxide (Magnesium Hydroxide (Mom) Oral Liqd Udc) 30 ml PO Q4H PRN PRN Reason: Constipation Metoclopramide HCl (Metoclopramide 10 Mg Tab) 10 mg PO Q6H PRN PRN Reason: Nausea And Vomiting Morphine Sulfate (Morphine 2 Mg/1 Ml Inj) 2 mg IV Q4H PRN PRN Reason: Pain, Moderate (4-6) Ondansetron HCl (Ondansetron 4 Mg/2 Ml Inj) 4 mg IV Q8H PRN PRN Reason: Nausea And Vomiting Promethazine HCl (Promethazine 25 Mg Rect Supp) [address] Q6H PRN PRN Reason: Nausea And Vomiting Sodium Chloride (Sodium Chloride 0.9% 10 Ml Flush Syringe) 10 ml IV BID [facility] Sodium Chloride (Sodium Chloride 0.9% 10 Ml Flush Syringe) 10 ml IV PRN PRN PRN Reason: LINE FLUSH Sodium Chloride (Sodium Chloride Nasal Wall 44ml) 1 spray NS TID [facility] Tizanidine HCl (Tizanidine Tab 4 Mg Tab) 2 mg PO Q8H PRN PRN Reason: Muscle Spasm Tizanidine HCl (Tizanidine Tab 4 Mg Tab) 4 mg PO HS [facility] Last Admin: 11/14/20 01:27 Dose: 4 mg Documented by: Trazodone HCl (Trazodone 100 Mg Tab) 100 mg PO QHS [facility] Last Admin: 11/14/20 02:31 Dose: 100 mg Documented by: Valsartan (Valsartan 160mg Tab) 160 mg PO BID [facility] Review of Systems All systems: negative (as per HPI;) Physical Examination - Vital Signs Vital Signs: Vital Signs Pulse Resp 60 17 11/13/20 18:41 11/13/20 18:41 - Physical Exam Narrative exam: Gen: nad, well-nourished; Head: normocephalic; Eyes: no gaze deviation; no ptosis; ENT: normal vocalization; CVS: warm and well-perfused; Pulm: no respiratory distress; GI: non-distended; Ext: +edema at distal lower extremities; Skin: no acute rash at distal extremities; Heme: no pathologic bruising at distal extremities; Neuro: alert, oriented to name, age, month, year, mild dysarthria, no aphasia, CN 2 - PERRL, visual sim intact, CN 3, 4, 6 - EOMI, CN 5 - facial sensation symmetric to light touch, CN 7 - facial movement symmetric, CN 8 - hearing grossly intact, CN 9, 10 - uvula midline, CN 11 - shrug decreased on left, CN 12 - tongue midline; Motor - at least 4/5 at right exts and at least 3/5 at left exts (contracture of LUE at fingers noted) w/ drift at left leg (w/ ?grimace); Sensory - light touch symmetric, Cerebellar - fnf /hts intact on right with deficit on the left, Gait - deferred secondary to fall risk; NIHSS (1a.) Level of Consciousness:0 (1b.) LOC Questions:0 (1c.) LOC Commands:0 (2.) Best Gaze:0 (3.) Visual:0 (4.) Facial Palsy:0 (5a.) Motor Arm, Left:0 (5b.) Motor Arm, Right:0 (6a.) Motor Leg, Left:1 (6b.) Motor Leg, Right:0 (7.) Limb Ataxia:0 (8.) Sensory:0 (9.) Best Language:0 (10.) Dysarthria:1 (11.) Extinction and Inattention:0 NIHSS Total Score: 2 Results - Laboratory Findings CBC and BMP: 11/14/20 04:37 11/14/20 04:37 Abnormal Lab Findings: Abnormal Labs 11/13/20 11/13/20 11/13/20 18:40 18:40 18:40 WBC RBC 5.70 H Hgb 17.5 H Hct 52.0 H Lymph % (Auto) Eos % (Auto) 5.9 H Lymph # (Auto) 1.0 L Seg Neutrophils % 74.3 H Seg Neutrophils # PT INR 1.15 H Potassium Carbon Dioxide 18 L Total Protein 8.8 H HDL Cholesterol 11/14/20 11/14/20 11/14/20 04:37 04:37 04:37 WBC 11.8 H RBC 5.82 H Hgb 17.7 H Hct 52.8 H Lymph % (Auto) 12.3 L Eos % (Auto) Lymph # (Auto) Seg Neutrophils % 80.5 H Seg Neutrophils # 9.5 H PT 15.1 H INR 1.19 H Potassium 3.4 L Carbon Dioxide Total Protein HDL Cholesterol 61 H Assessment and Plan 60 yo male with htn, hld, stroke w/ left-sided weakness, who presents c/o high blood pressure, swelling at left face, and swelling at legs with associated left-sided numbness/weakness. 1. Left-sided weakness/numbness - continue aspirin/plavix home regimen; recommend low-dose statin therapy for a goal ldl of 70; pt/ot/st/swallow evaluation/monitoring; pt is refusing MRI Brain despite offer for anxiolytic/sedation; recommend CTA Head/Neck w/ wo contrast if no contraindications and TTE. 2. Dysarthria / Dysphagia - pt notes problem with his partial; recommend st/swallow evaluation/monitoring. 3. Left-sided weakness - pt/ot evaluation/monitoring. 4. HTN - if CTA Head/Neck w/ wo contrast is unremarkable for a critical stenosis or occlusion, then may aim for normotension. 5. HLD - goal LDL of 70 (currentl LDL is 61???). 6. LE Edema - w/ shortness of breath per patient; ?CHF, per primary team. Addison Arenas MD Neurology
[2020-11-14] MEDS: ASPIRIN 325 MG TAB PO SCH (10:57)
[2020-11-14] MEDS: CLOPIDOGREL 75 MG TAB PO SCH (10:58)
[2020-11-14] MEDS: VALSARTAN 160MG TAB PO SCH ×2 (10:58→22:05)
[2020-11-14] MEDS: amLODIPine 5 MG TAB PO SCH (10:58)
[2020-11-14] MEDS: SODIUM CHLORIDE NASAL SPRAY 44ML NS SCH ×3 (11:01→22:03)
[2020-11-14] MEDS ORDERED: FUROSEMIDE 40 MG/4 ML INJ IV ONE (13:24)
--- NOTE | 2020-11-14 14:04 | Vascular Lab Report ---
DUPLEX DOPPLER LOWER EXTREMITY VEINS, BILATERAL INDICATION: r/o DVT. Lower extremity swelling TECHNIQUE: Duplex doppler imaging was performed through the veins of both lower extremities using ve nous compression and other maneuvers. COMPARISON: No relevant prior imaging study available. FINDINGS: Right Common femoral vein: Negative. Right Superficial femoral vein: Negative. Right Popliteal vein: Negative. Right Calf veins: Negative. Left Common femoral vein: Negative. Left Superficial femoral vein: Negative. Left Popliteal vein: Negative. Left Calf veins: Negative. Additional findings: None. IMPRESSION: No sonographic evidence for DVT in either lower extremity. Signer Name: Tim Alex Jr, MD Signed: 11/14/2020 2:00 PM Workstation Name: [id number]
--- NOTE | 2020-11-14 14:50 | Vascular Lab Report ---
DUPLEX DOPPLER ULTRASOUND CAROTID, BILATERAL INDICATION / CLINICAL INFORMATION: Stroke, left-sided weakness. COMPARISON: CTA neck from 10/06/2020. FINDINGS: RIGHT CAROTID: - PLAQUE ESTIMATE (%): < 50% - CCA velocity: 85 cm/sec. - ICA peak systolic velocity: 51 cm/sec. - ICA/CCA PSV Ratio: 0.6 Right Vertebral Artery: Antegrade flow. LEFT CAROTID: - PLAQUE ESTIMATE: None. - CCA velocity: 94 cm/sec. - ICA peak systolic velocity: 40 cm/sec. - ICA/CCA PSV Ratio: 0.4 Left Vertebral Artery: Antegrade flow. Additional findings: Generalized intimal thickening is noted bilaterally. IMPRESSION: 1. Right Internal Carotid Artery: Less than 50% diameter stenosis. 2. Left Internal Carotid Artery: Normal. No stenosis. Velocity criteria are extrapolated from diameter data as defined by the Society of Radiologists in Ul trasound Consensus Conference, Radiology 2003; 229;340-346. NO STENOSIS (NORMAL) * Plaque = none; ICA PSV < 125 cm/sec; ICA/CCA PSV Ratio < 2.0 <50% STENOSIS * Plaque < 50%; ICA PSV < 125 cm/sec; ICA/CCA PSV Ratio < 2.0 50-69% STENOSIS * Plaque > 50%; ICA PSV = 125-230 cm/sec; ICA/CCA PSV Ratio = 2.0-4.0 >70% BUT <100% STENOSIS * Plaque > 50%; ICA PSV > 230 cm/sec; ICA/CCA PSV Ratio > 4.0 NEAR OCCLUSION * Plaque = visible lumen; ICA PSV = high/low/none; ICA/CCA PSV Ratio = variable TOTAL OCCLUSION * Plaque = no lumen; ICA PSV = none; ICA/CCA PSV Ratio = N/A Signer Name: Victor Manuel Lentz MD Signed: 11/14/2020 2:46 PM Workstation Name: [id number]
--- NOTE | 2020-11-14 14:58 | Progress Note ---
<JUDIE GILL - Last Filed: 11/14/20 15:16> Assessment and Plan - Patient Problems (1) CVA (cerebral vascular accident) Current Visit: No Status: Acute Plan to address problem: -11/13 CT head/brain shows severe ischemic changes, multiple remote small deep infarctions small deep infarction distribution in the posterior aspect of the left camejo radiata's calcified atherosclerotic plaque in the cavernous segments of bilateral ICA and distal vertebral arteries, no acute intracranial abnormality -11/13 TTE showed mild to moderate concentric LVH, global left ventricular wall motion and contractility are within normal limits, estimated ejection fraction 55 to 60%, diastolic dysfunction, no pericardial effusion, normal bubble study without evidence of intracardiac or intrapulmonary communication, mild aortic leaflet calcification, trace MR, trace TR, trace pulmonic regurgitation, RVSP calculated at 18 mmHg with no pericardial effusion -11/14 bilateral carotid duplex shows right ICA with less than 50% diameter stenosis, left ICA no stenosis -10/06 CTA neck showed no significant abnormality -10/06 CTA head showed no significant abnormality -Patient refused MRI brain -Permissive hypertension for 24 hours then Target normotension -Avoid hypothermia and hypoglycemia -ST/PT/OT consults -Aspiration/seizure/fall precautions -Aspirin/statin therapy -Resume home Plavix -Neurology consulted, appreciate recommendations (2) Hypokalemia Current Visit: Yes Status: Acute Plan to address problem: 11/14 potassium 3.4 -Repleted -Trend BMP (3) Leukocytosis Current Visit: Yes Status: Acute Plan to address problem: -09/14 WBC 11.8 -Patient remains afebrile -Monitor for signs and symptoms of infection (4) Diabetes mellitus Current Visit: Yes Status: Chronic Plan to address problem: -11/14 hemoglobin A1c pending -[facility] -Accu-Cheks AC at bedtime (5) HTN (hypertension) Current Visit: Yes Status: Chronic Plan to address problem: -Blood pressure monitoring per protocol -Resume home antihypertensive regimen and titrate as needed -Hydralazine as needed for SBP more than 160 (6) Dyslipidemia Current Visit: Yes Status: Acute Plan to address problem: Continue statin therapy -11/14 lipid panel: Triglycerides 119, cholesterol 174, HDL 61, LDL 96 (7) DVT prophylaxis Current Visit: No Status: Acute Plan to address problem: -SCDs to bilateral predominant bed -Systemic anticoagulation/antiplatelet with aspirin and Plavix History Interval history: This is a 60-year-old male with CVA in 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 Work-up in the emergency department included a CT head which showed no acute findings and unremarkable labs. Patient was admitted to the hospitalist group for work-up of a possible CVA. This morning patient received his carotid ultrasound and echocardiogram. Neurology has recommended a CTA with and without contrast of his head and neck. The patient has refused an MRI brain despite being offered sedatives by neurology. At the time of my exam patient has left-sided weakness only. No acute events reported overnight. Hospitalist Physical - Constitutional Vitals: Temp Pulse Resp BP Pulse Ox 98.2 F 106 H 18 126/84 98 11/14/20 14:32 11/14/20 08:00 11/14/20 14:18 11/14/20 14:18 11/14/20 11:23 General appearance: Present: no acute distress, well-nourished - EENT Eyes: Present: PERRL, EOM intact ENT: hearing intact, dentition normal - Neck Neck: Present: normal ROM - Respiratory Respiratory effort: normal Respiratory: bilateral: CTA - Cardiovascular Rhythm: regular Heart Sounds: Present: S1 & S2. Absent: systolic murmur, diastolic murmur - Extremities Extremities: no ischemia, pulses intact, pulses symmetrical, No edema, normal temperature, normal color, Full ROM - Abdominal General gastrointestinal: soft, non-tender, non-distended, normal bowel sounds - Integumentary Integumentary: Present: clear, warm, dry - Psychiatric Psychiatric: appropriate mood/affect, cooperative - Neurologic Neurologic: CNII-XII intact, no focal deficits, moves all extremities - Allied Health Allied health notes reviewed: nursing HEART Score - HEART Score Troponin: Troponin T < 0.010 ng/mL (0.00-0.029) 11/13/20 18:40 Results - Labs CBC & Chem 7: 11/14/20 04:37 11/14/20 04:37 Labs: Laboratory Last Values WBC 11.8 K/mm3 (4.5-11.0) H 11/14/20 04:37 RBC 5.82 M/mm3 (3.65-5.03) H 11/14/20 04:37 Hgb 17.7 gm/dl (11.8-15.2) H 11/14/20 04:37 Hct 52.8 % (35.5-45.6) H 11/14/20 04:37 MCV 91 fl (84-94) 11/14/20 04:37 MCH 30 pg (28-32) 11/14/20 04:37 MCHC 34 % (32-34) 11/14/20 04:37 RDW 14.4 % (13.2-15.2) 11/14/20 04:37 Plt Count 254 K/mm3 (140-440) 11/14/20 04:37 Lymph % (Auto) 12.3 % (13.4-35.0) L 11/14/20 04:37 [place] % (Auto) 5.7 % (0.0-7.3) 11/14/20 04:37 Eos % (Auto) 1.2 % (0.0-4.3) 11/14/20 04:37 Baso % (Auto) 0.3 % (0.0-1.8) 11/14/20 04:37 Lymph # (Auto) 1.5 K/mm3 (1.2-5.4) 11/14/20 04:37 [place] # (Auto) 0.7 K/mm3 (0.0-0.8) 11/14/20 04:37 Eos # (Auto) 0.1 K/mm3 (0.0-0.4) 11/14/20 04:37 Baso # (Auto) 0.0 K/mm3 (0.0-0.1) 11/14/20 04:37 Seg Neutrophils % 80.5 % (40.0-70.0) H 11/14/20 04:37 Seg Neutrophils # 9.5 K/mm3 (1.8-7.7) H 11/14/20 04:37 PT 15.1 Sec. (12.2-14.9) H 11/14/20 04:37 INR 1.19 (0.87-1.13) H 11/14/20 04:37 APTT 29.7 Sec. (24.2-36.6) 11/13/20 18:40 Thrombin Time 17.3 Sec. (15.1-19.6) 11/13/20 18:40 Sodium 138 mmol/L (137-145) 11/14/20 04:37 Potassium 3.4 mmol/L (3.6-5.0) L 11/14/20 04:37 Chloride 101.3 mmol/L (98-107) 11/14/20 04:37 Carbon Dioxide 22 mmol/L (22-30) 11/14/20 04:37 Anion Gap 18 mmol/L 11/14/20 04:37 BUN 9 mg/dL (9-20) 11/14/20 04:37 Creatinine 0.8 mg/dL (0.8-1.3) 11/14/20 04:37 Estimated GFR > 60 ml/min 11/14/20 04:37 BUN/Creatinine Ratio 11 % 11/14/20 04:37 Glucose 98 mg/dL (75-100) 11/14/20 04:37 Calcium 9.4 mg/dL (8.4-10.2) 11/14/20 04:37 Total Bilirubin 0.50 mg/dL (0.1-1.2) 11/13/20 18:40 AST 20 units/L (5-40) 11/13/20 18:40 ALT 23 units/L (7-56) 11/13/20 18:40 Alkaline Phosphatase 129 units/L (35-129) 11/13/20 18:40 Total Creatine Kinase 109 units/L (55-170) 11/13/20 18:40 CK-MB (CK-2) 1.6 ng/mL (0.0-4.0) 11/13/20 18:40 CK-MB (CK-2) Rel Index 1.4 (0-4) 11/13/20 18:40 Troponin T < 0.010 ng/mL (0.00-0.029) 11/13/20 18:40 Total Protein 8.8 g/dL (6.3-8.2) H 11/13/20 18:40 Albumin 3.9 g/dL (3.9-5) 11/13/20 18:40 Albumin/Globulin Ratio 0.8 % 11/13/20 18:40 Triglycerides 119 mg/dL (2-149) 11/14/20 04:37 Cholesterol 174 mg/dL (50-199) 11/14/20 04:37 LDL Cholesterol Direct 96 mg/dL (50-130) 11/14/20 04:37 HDL Cholesterol 61 mg/dL (40-59) H 11/14/20 04:37 Cholesterol/HDL Ratio 2.85 % 11/14/20 04:37 Urine Color Straw (Yellow) 11/13/20 Unknown Urine Turbidity Clear (Clear) 11/13/20 Unknown Urine pH 7.0 (5.0-7.0) 11/13/20 Unknown Ur Specific [place] 1.003 (1.003-1.030) 11/13/20 Unknown Urine Protein <15 mg/dl mg/dL (Negative) 11/13/20 Unknown Urine Glucose (UA) Neg mg/dL (Negative) 11/13/20 Unknown Urine Ketones Neg mg/dL (Negative) 11/13/20 Unknown Urine Blood Sm (Negative) 11/13/20 Unknown Urine Nitrite Neg (Negative) 11/13/20 Unknown Urine Bilirubin Neg (Negative) 11/13/20 Unknown Urine Urobilinogen < 2.0 mg/dL (<2.0) 11/13/20 Unknown Ur Leukocyte Esterase Neg (Negative) 11/13/20 Unknown Urine WBC (Auto) < 1.0 /HPF (0.0-6.0) 11/13/20 Unknown Urine RBC (Auto) 1.0 /HPF (0.0-6.0) 11/13/20 Unknown U Epithel Cells (Auto) < 1.0 /HPF (0-13.0) 11/13/20 Unknown Urine Bacteria (Auto) 1+ /HPF (Negative) 11/13/20 Unknown - Diagnostic Impressions Diagnostic Impressions: Echocardiogram 11/13/20 22:41 Transthoracic Echocardiogram Indication: Stroke BP: 160/95 HR: 91 Conclusions *Mild to moderate concentric left ventricular hypertrophy is observed. *Global left ventricular wall motion and contractility are within normal limits. *The estimated ejection fraction is 55-60%. *There is an E to A reversal in the mitral valve flow pattern suggestive of diastolic dysfunction. *There is no pericardial effusion. *Normal bubble study without evidence of intracardiac or intrapulmonary comunication. Findings Left Ventricle: The left ventricular chamber size is normal. Mild to moderate concentric left ventricular hypertrophy is observed. Global left ventricular wall motion and contractility are within normal limits. Global left ventricular systolic function is normal. The estimated ejection fraction is 55-60%. There is an E to A reversal in the mitral valve flow pattern suggestive of diastolic dysfunction. Left Atrium: The left atrial chamber size is normal. Right Ventricle: The right ventricular cavity size is normal. The right ventricular global systolic function is normal. Right Atrium: The right atrial cavity size is normal. Aortic Valve: Mild aortic leaflet calcification is visualized. There is no evidence of aortic regurgitation. Mitral Valve: The mitral valve leaflets do not appear thickened. There is trace of mitral regurgitation. Tricuspid Valve: The tricuspid valve leaflets are normal. There is trace tricuspid regurgitation. The right ventricular systolic pressure is calculated at 18 mmHg. Pulmonic Valve: The pulmonic valve is not well visualized. There is trace pulmonic regurgitation. Pericardium: There is no pericardial effusion. Aorta: The aorta appears normal. Venous: The inferior vena cava appears normal in size. Measurements Chambers 2D Name Value Normal Range IVSd (2D) 1.43 cm (0.6 - 1.1) LVPWd (2D) 1.34 cm (0.6 - 1.1) LVIDd (2D) 3.05 cm (3.7 - 5.6) LVIDs (2D) 2.32 cm (2 - 3.8) LV FS (2D) 23.81 % - EF Teichholz (2D) 48.97 % - Ao root diameter (2D) 3.44 cm (2 - 3.7) Volumes/Mass Name Value Normal Range LA ESV SP 4CH (A/L) 28.74 ml - LA ESV SP 2CH (A/L) 47.49 ml - LA ESV BP (A/L) 39.87 ml - LA ESV BP (A/L) index 20.98 ml/m2 - LA ESV SP 4CH (MOD) 25.44 ml - LA ESV SP 2CH (MOD) 44.69 ml - LA ESV BP (MOD) 36.11 ml - LA ESV BP (MOD) index 19 ml/m2 - Diastolic/Systolic Function Name Value Normal Range MV E-wave Vmax 0.66 m/sec - MV deceleration time 329.08 msec - MV A-wave Vmax 0.83 m/sec - MV E:A ratio 0.79 ratio - Aortic Valve Name Value Normal Range AV Vmax 1.67 m/sec - AV VTI 31.23 cm - AV peak gradient 11.2 mmHg - AV mean gradient 6.1 mmHg - LVOT diameter 2.37 cm - LVOT Vmax 1.14 m/sec - LVOT VTI 21.25 cm - LVOT peak gradient 5.22 mmHg - LVOT mean gradient 2.72 mmHg - SV LVOT 93.35 ml - BETTY (continuity Vmax) 3 cm2 - BETTY (continuity VTI) 2.99 cm2 - Ascending Ao 2.94 cm - Mitral Valve Name Value Normal Range MV Vmax 1.08 m/sec - MV VTI 25.7 cm - MV peak gradient 4.63 mmHg - MV mean gradient 1.84 mmHg - MVA (continuity VTI) 3.63 cm2 - Tricuspid Valve Name Value Normal Range TR Vmax 1.97 m/sec - TR peak gradient 15 mmHg - RAP 3 mmHg - RVSP 18 mmHg - IVC diameter 1.29 cm (1.2 - 2.3) Pulmonic Valve/Qp:Qs Name Value Normal Range PV Vmax 0.91 m/sec - PV peak gradient 3.31 mmHg - MI end-diastolic Vmax 1.65 m/sec - PV acceleration time 129.4 msec - Das/IV: Voiding Method Condom Catheter IV Catheter Type [Right INT / Saline Lock Forearm] Active Medications - Current Medications Current Medications: Generic Name Dose Route Start Last Admin Trade Name Freq PRN Reason Stop Dose Admin Acetaminophen 650 mg 11/13/20 22:34 Acetaminophen 325 Mg Tab PO Q4H PRN Pain MILD(1-3)/Fever >100.5/RAMIREZ Amlodipine Besylate 5 mg 11/14/20 10:00 11/14/20 10:58 Amlodipine 5 Mg Tab PO 5 mg QDAY BRIAN Administration Aspirin 325 mg 11/14/20 10:00 11/14/20 10:57 Aspirin 325 Mg Tab PO 325 mg QDAY BRIAN Administration Atorvastatin Calcium 40 mg 11/14/20 22:00 Atorvastatin 40 Mg Tab PO QHS BRIAN Bisacodyl 10 mg 11/13/20 22:34 Bisacodyl 10 Mg Rect Supp MI QDAY PRN Constipation Clonidine HCl 0.2 mg 11/14/20 22:00 Clonidine 0.2 Mg Tab PO HS BRIAN Clopidogrel Bisulfate 75 mg 11/14/20 10:00 11/14/20 10:58 Clopidogrel 75 Mg Tab PO 75 mg QDAY BRIAN Administration Dextrose 0 ml 11/13/20 22:34 Dextrose 50% In Water (25gm) 50 Ml Syringe IV Q30MIN PRN Hypoglycemia Protocol Enoxaparin Sodium 40 mg 11/14/20 22:00 Enoxaparin 40 Mg/0.4 Ml Inj SUB-Q QDAY@2200 [facility] Protocol Hydralazine HCl 10 mg 11/14/20 01:09 11/14/20 01:27 Hydralazine 20 Mg/1 Ml Inj IV 10 mg Q6H PRN Administration Hypertension Insulin Human Lispro 0 unit 11/14/20 07:30 11/14/20 13:47 Insulin Lispro 100 Unit/Ml Vial 3 Ml SUB-Q Not Given ACHS [facility] Protocol Magnesium Hydroxide 30 ml 11/13/20 22:34 Magnesium Hydroxide (Mom) Oral Liqd Udc PO Q4H PRN Constipation Metoclopramide HCl 10 mg 11/13/20 22:34 Metoclopramide 10 Mg Tab PO Q6H PRN Nausea And Vomiting Morphine Sulfate 2 mg 11/13/20 22:34 Morphine 2 Mg/1 Ml Inj IV Q4H PRN Pain, Moderate (4-6) Ondansetron HCl 4 mg 11/13/20 22:34 Ondansetron 4 Mg/2 Ml Inj IV Q8H PRN Nausea And Vomiting Promethazine HCl 25 mg 11/13/20 22:34 Promethazine 25 Mg Rect Supp MI Q6H PRN Nausea And Vomiting Sodium Chloride 10 ml 11/14/20 10:00 11/14/20 10:58 Sodium Chloride 0.9% 10 Ml Flush Syringe IV 10 ml BID BRIAN Administration Sodium Chloride 10 ml 11/13/20 22:34 Sodium Chloride 0.9% 10 Ml Flush Syringe IV PRN PRN LINE FLUSH Sodium Chloride 1 spray 11/14/20 11:00 11/14/20 14:17 Sodium Chloride Nasal [place] 44ml NS 1 spray TID BRIAN Administration Tizanidine HCl 2 mg 11/14/20 01:05 Tizanidine Tab 4 Mg Tab PO Q8H PRN Muscle Spasm Tizanidine HCl 4 mg 11/14/20 22:00 11/14/20 01:27 Tizanidine Tab 4 Mg Tab PO 4 mg HS BRIAN Administration Trazodone HCl 100 mg 11/14/20 02:45 11/14/20 02:31 Trazodone 100 Mg Tab PO 100 mg QHS BRIAN Administration Valsartan 160 mg 11/14/20 10:00 11/14/20 10:58 Valsartan 160mg Tab PO 160 mg BID BRIAN Administration Nutrition/Malnutrition Assess - Dietary Evaluation Nutrition/Malnutrition Findings: Nutrition Notes Start: 11/14/20 13: 29 Freq: Status: Active Protocol: Document 11/14/20 13:30 CW (Rec: 11/14/20 13:35 CW [email or web address]) Co-Sign 11/14/20 13:30 MK Nutrition Notes Need for Assessment generated from: MD Order,Education Initial or Follow up Brief Note Current Diagnosis COPD,Diabetes,Hypertension, Stroke,Hyperlipidemia Other Pertinent Diagnosis CVA, arthritis Current Diet Cardiac/ Consistent CHO Subjective/Other Information MD consult diet edu. Pt gone at the time of visit. Nutrition Intervention Anticipated Discharge Needs: Cardiac/ Consistent CHO Additional Comments FU for diet education needs <OSWALDO WONG E - Last Filed: 11/15/20 07:49> Assessment and Plan Assessment and plan: I saw and evaluated the patient. I agree with the findings and the plan of care as documented in the Nurse Practitioner's~note, with the following corrections and additions. Hospitalist Physical - Constitutional Vitals: Temp Pulse Resp BP Pulse Ox 98.0 F 62 18 153/78 95 11/15/20 04:33 11/15/20 04:33 11/15/20 04:33 11/15/20 04:33 11/15/20 04:33 HEART Score - HEART Score Troponin: Troponin T < 0.010 ng/mL (0.00-0.029) 11/13/20 18:40 Results - Labs CBC & Chem 7: 11/15/20 05:24 11/15/20 05:24 Labs: Laboratory Last Values WBC 6.6 K/mm3 (4.5-11.0) 11/15/20 05:24 RBC 4.94 M/mm3 (3.65-5.03) 11/15/20 05:24 Hgb 15.2 gm/dl (11.8-15.2) 11/15/20 05:24 Hct 44.5 % (35.5-45.6) D 11/15/20 05:24 MCV 90 fl (84-94) 11/15/20 05:24 MCH 31 pg (28-32) 11/15/20 05:24 MCHC 34 % (32-34) 11/15/20 05:24 RDW 14.9 % (13.2-15.2) 11/15/20 05:24 Plt Count 218 K/mm3 (140-440) 11/15/20 05:24 Lymph % (Auto) 12.3 % (13.4-35.0) L 11/14/20 04:37 [place] % (Auto) 5.7 % (0.0-7.3) 11/14/20 04:37 Eos % (Auto) 1.2 % (0.0-4.3) 11/14/20 04:37 Baso % (Auto) 0.3 % (0.0-1.8) 11/14/20 04:37 Lymph # (Auto) 1.5 K/mm3 (1.2-5.4) 11/14/20 04:37 [place] # (Auto) 0.7 K/mm3 (0.0-0.8) 11/14/20 04:37 Eos # (Auto) 0.1 K/mm3 (0.0-0.4) 11/14/20 04:37 Baso # (Auto) 0.0 K/mm3 (0.0-0.1) 11/14/20 04:37 Seg Neutrophils % 80.5 % (40.0-70.0) H 11/14/20 04:37 Seg Neutrophils # 9.5 K/mm3 (1.8-7.7) H 11/14/20 04:37 PT 15.1 Sec. (12.2-14.9) H 11/14/20 04:37 INR 1.19 (0.87-1.13) H 11/14/20 04:37 APTT 29.7 Sec. (24.2-36.6) 11/13/20 18:40 Thrombin Time 17.3 Sec. (15.1-19.6) 11/13/20 18:40 Sodium 141 mmol/L (137-145) 11/15/20 05:24 Potassium 4.0 mmol/L (3.6-5.0) 11/15/20 05:24 Chloride 106.3 mmol/L (98-107) 11/15/20 05:24 Carbon Dioxide 26 mmol/L (22-30) 11/15/20 05:24 Anion Gap 13 mmol/L 11/15/20 05:24 BUN 13 mg/dL (9-20) 11/15/20 05:24 Creatinine 1.2 mg/dL (0.8-1.3) 11/15/20 05:24 Estimated GFR > 60 ml/min 11/15/20 05:24 BUN/Creatinine Ratio 11 % 11/15/20 05:24 Glucose 86 mg/dL (75-100) 11/15/20 05:24 POC Glucose 103 mg/dL (70-105) 11/14/20 21:52 Calcium 9.0 mg/dL (8.4-10.2) 11/15/20 05:24 Total Bilirubin 0.50 mg/dL (0.1-1.2) 11/13/20 18:40 AST 20 units/L (5-40) 11/13/20 18:40 ALT 23 units/L (7-56) 11/13/20 18:40 Alkaline Phosphatase 129 units/L (35-129) 11/13/20 18:40 Total Creatine Kinase 109 units/L (55-170) 11/13/20 18:40 CK-MB (CK-2) 1.6 ng/mL (0.0-4.0) 11/13/20 18:40 CK-MB (CK-2) Rel Index 1.4 (0-4) 11/13/20 18:40 Troponin T < 0.010 ng/mL (0.00-0.029) 11/13/20 18:40 Total Protein 8.8 g/dL (6.3-8.2) H 11/13/20 18:40 Albumin 3.9 g/dL (3.9-5) 11/13/20 18:40 Albumin/Globulin Ratio 0.8 % 11/13/20 18:40 Triglycerides 119 mg/dL (2-149) 11/14/20 04:37 Cholesterol 174 mg/dL (50-199) 11/14/20 04:37 LDL Cholesterol Direct 96 mg/dL (50-130) 11/14/20 04:37 HDL Cholesterol 61 mg/dL (40-59) H 11/14/20 04:37 Cholesterol/HDL Ratio 2.85 % 11/14/20 04:37 Urine Color Straw (Yellow) 11/13/20 Unknown Urine Turbidity Clear (Clear) 11/13/20 Unknown Urine pH 7.0 (5.0-7.0) 11/13/20 Unknown Ur Specific [place] 1.003 (1.003-1.030) 11/13/20 Unknown Urine Protein <15 mg/dl mg/dL (Negative) 11/13/20 Unknown Urine Glucose (UA) Neg mg/dL (Negative) 11/13/20 Unknown Urine Ketones Neg mg/dL (Negative) 11/13/20 Unknown Urine Blood Sm (Negative) 11/13/20 Unknown Urine Nitrite Neg (Negative) 11/13/20 Unknown Urine Bilirubin Neg (Negative) 11/13/20 Unknown Urine Urobilinogen < 2.0 mg/dL (<2.0) 11/13/20 Unknown Ur Leukocyte Esterase Neg (Negative) 11/13/20 Unknown Urine WBC (Auto) < 1.0 /HPF (0.0-6.0) 11/13/20 Unknown Urine RBC (Auto) 1.0 /HPF (0.0-6.0) 11/13/20 Unknown U Epithel Cells (Auto) < 1.0 /HPF (0-13.0) 11/13/20 Unknown Urine Bacteria (Auto) 1+ /HPF (Negative) 11/13/20 Unknown - Diagnostic Impressions Diagnostic Impressions: Echocardiogram 11/13/20 22:41 Transthoracic Echocardiogram Indication: Stroke BP: 160/95 HR: 91 Conclusions *Mild to moderate concentric left ventricular hypertrophy is observed. *Global left ventricular wall motion and contractility are within normal limits. *The estimated ejection fraction is 55-60%. *There is an E to A reversal in the mitral valve flow pattern suggestive of diastolic dysfunction. *There is no pericardial effusion. *Normal bubble study without evidence of intracardiac or intrapulmonary comunication. Findings Left Ventricle: The left ventricular chamber size is normal. Mild to moderate concentric left ventricular hypertrophy is observed. Global left ventricular wall motion and contractility are within normal limits. Global left ventricular systolic function is normal. The estimated ejection fraction is 55-60%. There is an E to A reversal in the mitral valve flow pattern suggestive of diastolic dysfunction. Left Atrium: The left atrial chamber size is normal. Right Ventricle: The right ventricular cavity size is normal. The right ventricular global systolic function is normal. Right Atrium: The right atrial cavity size is normal. Aortic Valve: Mild aortic leaflet calcification is visualized. There is no evidence of aortic regurgitation. Mitral Valve: The mitral valve leaflets do not appear thickened. There is trace of mitral regurgitation. Tricuspid Valve: The tricuspid valve leaflets are normal. There is trace tricuspid regurgitation. The right ventricular systolic pressure is calculated at 18 mmHg. Pulmonic Valve: The pulmonic valve is not well visualized. There is trace pulmonic regurgitation. Pericardium: There is no pericardial effusion. Aorta: The aorta appears normal. Venous: The inferior vena cava appears normal in size. Measurements Chambers 2D Name Value Normal Range IVSd (2D) 1.43 cm (0.6 - 1.1) LVPWd (2D) 1.34 cm (0.6 - 1.1) LVIDd (2D) 3.05 cm (3.7 - 5.6) LVIDs (2D) 2.32 cm (2 - 3.8) LV FS (2D) 23.81 % - EF Teichholz (2D) 48.97 % - Ao root diameter (2D) 3.44 cm (2 - 3.7) Volumes/Mass Name Value Normal Range LA ESV SP 4CH (A/L) 28.74 ml - LA ESV SP 2CH (A/L) 47.49 ml - LA ESV BP (A/L) 39.87 ml - LA ESV BP (A/L) index 20.98 ml/m2 - LA ESV SP 4CH (MOD) 25.44 ml - LA ESV SP 2CH (MOD) 44.69 ml - LA ESV BP (MOD) 36.11 ml - LA ESV BP (MOD) index 19 ml/m2 - Diastolic/Systolic Function Name Value Normal Range MV E-wave Vmax 0.66 m/sec - MV deceleration time 329.08 msec - MV A-wave Vmax 0.83 m/sec - MV E:A ratio 0.79 ratio - Aortic Valve Name Value Normal Range AV Vmax 1.67 m/sec - AV VTI 31.23 cm - AV peak gradient 11.2 mmHg - AV mean gradient 6.1 mmHg - LVOT diameter 2.37 cm - LVOT Vmax 1.14 m/sec - LVOT VTI 21.25 cm - LVOT peak gradient 5.22 mmHg - LVOT mean gradient 2.72 mmHg - SV LVOT 93.35 ml - BETTY (continuity Vmax) 3 cm2 - BETTY (continuity VTI) 2.99 cm2 - Ascending Ao 2.94 cm - Mitral Valve Name Value Normal Range MV Vmax 1.08 m/sec - MV VTI 25.7 cm - MV peak gradient 4.63 mmHg - MV mean gradient 1.84 mmHg - MVA (continuity VTI) 3.63 cm2 - Tricuspid Valve Name Value Normal Range TR Vmax 1.97 m/sec - TR peak gradient 15 mmHg - RAP 3 mmHg - RVSP 18 mmHg - IVC diameter 1.29 cm (1.2 - 2.3) Pulmonic Valve/Qp:Qs Name Value Normal Range PV Vmax 0.91 m/sec - PV peak gradient 3.31 mmHg - MI end-diastolic Vmax 1.65 m/sec - PV acceleration time 129.4 msec - Das/IV: Voiding Method Urinal IV Catheter Type [Right INT / Saline Lock Forearm] Active Medications - Current Medications Current Medications: Generic Name Dose Route Start Last Admin Trade Name Freq PRN Reason Stop Dose Admin Acetaminophen 650 mg 11/13/20 22:34 Acetaminophen 325 Mg Tab PO Q4H PRN Pain MILD(1-3)/Fever >100.5/RAMIREZ Amlodipine Besylate 5 mg 11/14/20 10:00 11/14/20 10:58 Amlodipine 5 Mg Tab PO 5 mg QDAY BRIAN Administration Aspirin 325 mg 11/14/20 10:00 11/14/20 10:57 Aspirin 325 Mg Tab PO 325 mg QDAY BRIAN Administration Atorvastatin Calcium 40 mg 11/14/20 22:00 11/14/20 22:04 Atorvastatin 40 Mg Tab PO 40 mg QHS BRIAN Administration Bisacodyl 10 mg 11/13/20 22:34 Bisacodyl 10 Mg Rect Supp MI QDAY PRN Constipation Clonidine HCl 0.2 mg 11/14/20 22:00 11/14/20 22:04 Clonidine 0.2 Mg Tab PO 0.2 mg HS BRIAN Administration Clopidogrel Bisulfate 75 mg 11/14/20 10:00 11/14/20 10:58 Clopidogrel 75 Mg Tab PO 75 mg QDAY BRIAN Administration Dextrose 0 ml 11/13/20 22:34 Dextrose 50% In Water (25gm) 50 Ml Syringe IV Q30MIN PRN Hypoglycemia Protocol Enoxaparin Sodium 40 mg 11/14/20 22:00 11/14/20 22:05 Enoxaparin 40 Mg/0.4 Ml Inj SUB-Q 40 mg QDAY@2200 BRIAN Administration Protocol Hydralazine HCl 10 mg 11/14/20 01:09 11/14/20 01:27 Hydralazine 20 Mg/1 Ml Inj IV 10 mg Q6H PRN Administration Hypertension Insulin Human Lispro 0 unit 11/14/20 07:30 11/14/20 22:05 Insulin Lispro 100 Unit/Ml Vial 3 Ml SUB-Q Not Given ACHS [facility] Protocol Magnesium Hydroxide 30 ml 11/13/20 22:34 Magnesium Hydroxide (Mom) Oral Liqd Udc PO Q4H PRN Constipation Metoclopramide HCl 10 mg 11/13/20 22:34 Metoclopramide 10 Mg Tab PO Q6H PRN Nausea And Vomiting Morphine Sulfate 2 mg 11/13/20 22:34 Morphine 2 Mg/1 Ml Inj IV Q4H PRN Pain, Moderate (4-6) Ondansetron HCl 4 mg 11/13/20 22:34 Ondansetron 4 Mg/2 Ml Inj IV Q8H PRN Nausea And Vomiting Promethazine HCl 25 mg 11/13/20 22:34 Promethazine 25 Mg Rect Supp MI Q6H PRN Nausea And Vomiting Sodium Chloride 10 ml 11/14/20 10:00 11/14/20 22:06 Sodium Chloride 0.9% 10 Ml Flush Syringe IV 10 ml BID BRIAN Administration Sodium Chloride 10 ml 11/13/20 22:34 Sodium Chloride 0.9% 10 Ml Flush Syringe IV PRN PRN LINE FLUSH Sodium Chloride 1 spray 11/14/20 11:00 11/14/20 22:03 Sodium Chloride Nasal [place] 44ml NS 1 spray TID BRIAN Administration Tizanidine HCl 2 mg 11/14/20 01:05 Tizanidine Tab 4 Mg Tab PO Q8H PRN Muscle Spasm Tizanidine HCl 4 mg 11/14/20 22:00 11/14/20 22:04 Tizanidine Tab 4 Mg Tab PO 4 mg HS BRIAN Administration Trazodone HCl 100 mg 11/14/20 02:45 11/14/20 22:04 Trazodone 100 Mg Tab PO 100 mg QHS BRIAN Administration Valsartan 160 mg 11/14/20 10:00 11/14/20 22:05 Valsartan 160mg Tab PO 160 mg BID BRIAN Administration Nutrition/Malnutrition Assess - Dietary Evaluation Nutrition/Malnutrition Findings: Nutrition Notes Start: 11/14/20 13:29 Freq: Status: Active Protocol: Document 11/14/20 13:30 CW (Rec: 11/14/20 13:35 CW [id number]) Co-Sign 11/14/20 13:30 MK Nutrition Notes Need for Assessment generated from: MD Order,Education Initial or Follow up Brief Note Current Diagnosis COPD,Diabetes,Hypertension, Stroke,Hyperlipidemia Other Pertinent Diagnosis CVA, arthritis Current Diet Cardiac/ Consistent CHO Subjective/Other Information MD consult diet edu. Pt gone at the time of visit. Nutrition Intervention Anticipated Discharge Needs: Cardiac/ Consistent CHO Follow-Up By: 11/18/20 Additional Comments FU for diet education needs
[2020-11-14] MEDS ORDERED: POTASSIUM CHLORIDE ER 20 MEQ TAB PO SCH (16:00)
[2020-11-14] MEDS ORDERED: ENOXAPARIN 40 MG/0.4 ML INJ SUB-Q SCH (22:00)
[2020-11-14] MEDS ORDERED: cloNIDine 0.2 MG TAB PO SCH (22:00)
[2020-11-15 06:27] LABS: Hematocrit 44.5 % (35.5-45.6); Hemoglobin 15.2 gm/dl (11.8-15.2); Mean Corpuscular HGB Conc 34 % (32-34); Mean Corpuscular Volume 90 fl (84-94); Platelet Count 218 K/mm3 (140-440); Red Blood Count 4.94 M/mm3 (3.65-5.03); Red Cell Distribution Width 14.9 % (13.2-15.2)
[2020-11-15 06:49] LABS: BUN/Creatinine Ratio 11; Blood Urea Nitrogen 13 mg/dL (9-20); Hemolysis Index 6
[2020-11-15] MEDS: INSULIN LISPRO 100 UNIT/ML VIAL 3 mL SUB-Q SCH ×2 (08:30→12:44)
[2020-11-15] MEDS: ASPIRIN 325 MG TAB PO SCH (09:38)
[2020-11-15] MEDS: VALSARTAN 160MG TAB PO SCH (09:38)
[2020-11-15] MEDS: amLODIPine 5 MG TAB PO SCH (09:38)
[2020-11-15] MEDS: CLOPIDOGREL 75 MG TAB PO SCH (09:38)
[2020-11-15] MEDS: SODIUM CHLORIDE NASAL SPRAY 44ML NS SCH ×2 (09:44→13:35)
--- NOTE | 2020-11-15 10:41 | Discharge Summary ---
Providers - Providers Date of Admission: 11/13/20 22:59 Attending physician: OSWALDO WONG MD 11/13/20 22:34 Consult to Physician [CONS] Routine Comment: Consulting Provider: THANIA CAGE Physician Instructions: Reason For Exam: left sided weakness. 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 Work-up in the emergency department included a CT head which showed no acute findings and unremarkable labs. Patient was admitted to the hospitalist group for work-up of a possible CVA. This morning patient received his carotid ultrasound and echocardiogram. Neurology has recommended a CTA with and without contrast of his head and neck. The patient has refused an MRI brain despite being offered sedatives by neurology. At the time of my exam patient has left-sided weakness only. No acute events reported overnight. 11/15: Clinical stable, No new complians, BP better. Diuriesed a bit. Stable for discharge, will start on a short course of lasix. No DVT on u/s (1) CVA (cerebral vascular accident) Current Visit: No Status: Acute Plan to address problem: -11/13 CT head/brain shows severe ischemic changes, multiple remote small deep infarctions small deep infarction distribution in the posterior aspect of the left camejo radiata's calcified atherosclerotic plaque in the cavernous segments of bilateral ICA and distal vertebral arteries, no acute intracranial abnormality -11/13 TTE showed mild to moderate concentric LVH, global left ventricular wall motion and contractility are within normal limits, estimated ejection fraction 55 to 60%, diastolic dysfunction, no pericardial effusion, normal bubble study without evidence of intracardiac or intrapulmonary communication, mild aortic l eaflet calcification, trace MR, trace TR, trace pulmonic regurgitation, RVSP calculated at 18 mmHg with no pericardial effusion -11/14 bilateral carotid duplex shows right ICA with less than 50% diameter stenosis, left ICA no stenosis -10/06 CTA neck showed no significant abnormality -10/06 CTA head showed no significant abnormality -Patient refused MRI brain -Permissive hypertension for 24 hours then Target normotension -Avoid hypothermia and hypoglycemia -ST/PT/OT consults -Aspiration/seizure/fall precautions -Aspirin/statin therapy -Resume home Plavix -Neurology consulted, appreciate recommendations (2) Hypokalemia Current Visit: Yes Status: Acute Plan to address problem: 11/14 potassium 3.4 -Repleted -Trend BMP (3) Leukocytosis Current Visit: Yes Status: Acute Plan to address problem: -09/14 WBC 11.8 -Patient remains afebrile -Monitor for signs and symptoms of infection (4) Diabetes mellitus Current Visit: Yes Status: Chronic Plan to address problem: -11/14 hemoglobin A1c pending -SSI -Accu-Cheks AC at bedtime (5) HTN (hypertension) Current Visit: Yes Status: Chronic Plan to address problem: -Blood pressure monitoring per protocol -Resume home antihypertensive regimen and titrate as needed -Hydralazine as needed for SBP more than 160 (6) Dyslipidemia Current Visit: Yes Status: Acute Plan to address problem: Continue statin therapy -11/14 lipid panel: Triglycerides 119, cholesterol 174, HDL 61, LDL 96 (7) DVT prophylaxis Current Visit: No Status: Acute Plan to address problem: -SCDs to bilateral predominant bed -Systemic anticoagulation/antiplatelet with aspirin and Plavix Disposition: DC/[place]-06 HOME UNDER HOME [facility] Core Measure Documentation - Palliative Care Palliative Care/ Comfort Measures: Not Applicable Exam - Constitutional Vitals: Temp Pulse Resp BP Pulse Ox 97.5 F L 60 18 150/79 93 11/15/20 07:56 11/15/20 07:56 11/15/20 07:56 11/15/20 07:56 11/15/20 07:56 Plan Activity: advance as tolerated, fall precautions Diet: low fat, low salt Special Instructions: record daily weights, record daily BP diary Follow up with: EVAN AGUIAR MD [Primary Care Provider] - 3-5 Days Prescriptions: cloNIDine [Catapres] 0.2 mg PO QHS #30 tab AtorvaSTATin [Lipitor] 40 mg PO QHS #30 tablet amLODIPine 5 mg PO DAILY #30 tab Valsartan [Diovan] 160 mg PO BID #60 tablet Furosemide [Lasix] 20 mg PO QDAY #14 tablet
[2020-11-15 11:48] VITALS: BP 152/75
== END 2020-11-15 17:54 | disposition home health service (06) ==
LOC: ED 18:12 → 4A 22:59
PROVIDERS: ADMIT Internal Medicine Geriatric Medicine; ATTEND Internal Medicine
DX: M62.81 Muscle weakness (generalized) (principal); I69.30 Unspecified sequelae of cerebral infarction; R60.0 Localized edema; I10 Essential (primary) hypertension; E11.9 Type 2 diabetes mellitus without complications; E78.5 Hyperlipidemia, unspecified; E87.6 Hypokalemia; D72.829 Elevated white blood cell count, unspecified; R29.707 NIHSS score 7; J44.9 Chronic obstructive pulmonary disease, unspecified; M19.90 Unspecified osteoarthritis, unspecified site; Z87.891 Personal history of nicotine dependence; Z98.890 Other specified postprocedural states; Z79.82 Long term (current) use of aspirin
CPT/HCPCS: 36415; 70450; 71045; 80048; 80053; 80061; 81001; 82550; 82553; 82962; 84484; 85025; 85027; 85610; 85670; 85730; 92610; 93005; 93306; 93880; 93970; 96372; 96374; 96375; 97162; 97165; 97530; 97535; 99285; A9270; G0378; J0360; J1650; J1940

== ENCOUNTER 2022-06-04 08:53 | Emergency (ER) | payer MEDICARE ==
[2022-06-04] MEDS ORDERED: FUROSEMIDE 40 MG/4 ML INJ IV ONE (09:12)
--- NOTE | 2022-06-04 09:48 | XRay Report ---
CHEST 1 VIEW 06/04/2022 9:37 AM INDICATION / CLINICAL INFORMATION: Dyspnea. COMPARISON: None available. FINDINGS: SUPPORT DEVICES: None. HEART / MEDIASTINUM: No significant abnormality. LUNGS / PLEURA: Mild increased pulmonary vascularity No pneumothorax. ADDITIONAL FINDINGS: No significant additional findings. IMPRESSION: 1. No acute findings. Signer Name: Flaco Bar MD Signed: 06/04/2022 9:44 AM Workstation Name: [email or web address] [id number]
[2022-06-04 11:03] LABS: Basophils % (Auto) 0.6 % (0.0-1.8); Eosinophils # (Auto) 0.4 K/mm3 (0.0-0.4); Eosinophils % (Auto) 4.6 % (0.0-4.3); Hematocrit 52.6 % (35.5-45.6); Lymphocytes # (Auto) 1.5 K/mm3 (1.2-5.4); Lymphocytes % (Auto) 19.4 % (13.4-35.0); Mean Corpuscular HGB Conc 34 % (32-34); Mean Corpuscular Volume 90 fl (84-94); Monocytes # (Auto) 0.4 K/mm3 (0.0-0.8); Monocytes % (Auto) 5.4 % (0.0-7.3); Platelet Count 200 K/mm3 (140-440); Red Blood Count 5.82 M/mm3 (3.65-5.03); Red Cell Distribution Width 13.5 % (13.2-15.2)
[2022-06-04 11:21] LABS: Alanine Aminotransferase 26 units/L (7-56); Albumin 4.3 g/dL (3.9-5); BUN/Creatinine Ratio 11; Blood Urea Nitrogen 12 mg/dL (9-20); Calcium 9.5 mg/dL (8.4-10.2); Hemolysis Index 6
[2022-06-04 11:53] VITALS: BP 133/96
--- NOTE | 2022-06-04 11:57 | Emergency Department Report ---
ED Shortness of Breath HPI - General Chief Complaint: Dyspnea/Respdistress Stated Complaint: STACY Time Seen by Provider: 06/04/22 09:03 Source: EMS Mode of arrival: Stretcher Limitations: Physical Limitation - History of Present Illness Initial Comments: Patient is 62-year-old male presented ED with complaint of shortness of breath and worsening bilateral leg edema for the past several days. He does not have history of CHF. - Related Data Home Medications Medication Instructions Recorded Confirmed Last Taken traZODone [Desyrel] 100 mg PO QHS PRN 04/21/20 11/14/20 Unknown tiZANidine [Zanaflex 4mg TAB] 2 mg PO Q8H PRN 11/14/20 11/14/20 Unknown Previous Rx's Medication Instructions Recorded Last Taken Type Aspirin [Adult Aspirin] 81 mg PO DAILY #30 tablet. 10/07/20 Unknown Rx Clopidogrel [Plavix] 75 mg PO QDAY #30 tablet 10/07/20 Unknown Rx AtorvaSTATin [Lipitor] 40 mg PO QHS #30 tablet 11/15/20 Unknown Rx Furosemide [Lasix] 20 mg PO QDAY #14 tablet 11/15/20 Unknown Rx Valsartan [Diovan] 160 mg PO BID #60 tablet 11/15/20 Unknown Rx amLODIPine 5 mg PO DAILY #30 tab 11/15/20 Unknown Rx cloNIDine [Catapres] 0.2 mg PO QHS #30 tab 11/15/20 Unknown Rx Furosemide [Lasix] 40 mg PO DAILY #5 06/04/22 Unknown Rx Allergies Allergy/AdvReac Type Severity Reaction Status Date / Time No Known Allergies Allergy Verified 06/04/22 08:59 ED Review of Systems ROS: Stated complaint: STAYC Other details as noted in HPI Constitutional: denies: chills, fever Respiratory: shortness of breath. denies: cough, wheezing Cardiovascular: denies: chest pain, palpitations Gastrointestinal: denies: abdominal pain, nausea, diarrhea Musculoskeletal: denies: back pain, joint swelling, arthralgia Skin: denies: rash, lesions Neurological: denies: headache, weakness, paresthesias Psychiatric: denies: anxiety, depression ED Past Medical Hx - Past Medical History Previous Medical History?: Yes Hx Hypertension: Yes Hx CVA: Yes (right CVA with left hemiplegia 10/2015) Hx Congestive Heart Failure: No Hx Diabetes: Yes Hx Renal Disease: No Hx Arthritis: Yes Hx Seizures: No Hx Asthma: No Hx COPD: Yes (no home O2) Hx HIV: No Additional medical history: CVA 10/21. high cholesterol - Surgical History Hx Pacemaker: No Additional Surgical History: PEG tube placement and removal - Social History Smoking Status: Never Smoker - Medications Home Medications: Home Medications Medication Instructions Recorded Confirmed Last Taken Type traZODone [Desyrel] 100 mg PO QHS PRN 04/21/20 11/14/20 Unknown History Aspirin [Adult Aspirin] 81 mg PO DAILY #30 tablet.dr 10/07/20 11/14/20 Unknown Rx Clopidogrel [Plavix] 75 mg PO QDAY #30 tablet 10/07/20 11/14/20 Unknown Rx tiZANidine [Zanaflex 4mg TAB] 2 mg PO Q8H PRN 11/14/20 11/14/20 Unknown History AtorvaSTATin [Lipitor] 40 mg PO QHS #30 tablet 11/15/20 Unknown Rx Furosemide [Lasix] 20 mg PO QDAY #14 tablet 11/15/20 Unknown Rx Valsartan [Diovan] 160 mg PO BID #60 tablet 11/15/20 Unknown Rx amLODIPine 5 mg PO DAILY #30 tab 11/15/20 Unknown Rx cloNIDine [Catapres] 0.2 mg PO QHS #30 tab 11/15/20 Unknown Rx Furosemide [Lasix] 40 mg PO DAILY #5 06/04/22 Unknown Rx ED Physical Exam - General Limitations: Physical Limitation - Head Head exam: Present: atraumatic, normocephalic - Respiratory Respiratory exam: Present: normal lung sounds bilaterally. Absent: respiratory distress - Cardiovascular Cardiovascular Exam: Present: regular rate, normal rhythm, normal heart sounds - GI/Abdominal GI/Abdominal exam: Present: soft. Absent: distended, tenderness - Rectal Rectal exam: Present: deferred - Extremities Exam Extremities exam: Present: pedal edema (Bilateral pitting edema to lower legs) - Neurological Exam Neurological exam: Present: alert, oriented X3 - Psychiatric Psychiatric exam: Present: normal affect, normal mood - Skin Skin exam: Present: warm, dry, intact, normal color ED Course Vital Signs 06/04/22 06/04/22 06/04/22 08:56 09:24 09:31 Temperature 97.5 F L Pulse Rate 68 59 L Respiratory 19 13 Rate Blood Pressure 194/95 Blood Pressure 199/109 [Right] O2 Sat by Pulse 98 98 98 Oximetry 06/04/22 06/04/22 06/04/22 09:45 10:01 10:15 Temperature Pulse Rate 53 L 53 L 61 Respiratory 15 23 13 Rate Blood Pressure 160/92 205/133 205/133 Blood Pressure [Right] O2 Sat by Pulse 98 97 96 Oximetry 06/04/22 06/04/22 06/04/22 10:31 10:45 11:01 Temperature Pulse Rate 60 55 L 53 L Respiratory 22 18 20 Rate Blood Pressure 174/98 174/98 160/98 Blood Pressure [Right] O2 Sat by Pulse 97 99 97 Oximetry 06/04/22 06/04/22 06/04/22 11:15 11:31 11:45 Temperature Pulse Rate 52 L 51 L 48 L Respiratory 18 16 20 Rate Blood Pressure 161/82 165/87 133/96 Blood Pressure [Right] O2 Sat by Pulse 100 96 Oximetry ED Medical Decision Making - Lab Data Result diagrams: 06/04/22 09:40 06/04/22 09:40 - Medical Decision Making CBC, CMP, BNP and chest x-ray unremarkable. On reassessment patient sleeping comfortably in bed with normal oxygen saturations on room air. He is stable for discharge home with return precautions. Follow-up with PCP at earliest convenience. Critical care attestation.: If time is entered above; I have spent that time in minutes in the direct care of this critically ill patient, excluding procedure time. ED Disposition Clinical Impression: Dyspnea, Bilateral lower extremity edema Disposition: 01 HOME / SELF CARE / HOMELESS Is pt being admited?: No Condition: Stable Instructions: Shortness of Breath, Adult, [id number], Peripheral Edema Referrals: FORD HTURSTON MD [Primary Care Provider] - 3-5 Days
== END 2022-06-04 12:10 | disposition home or self-care (01) ==
LOC: ED 08:53
DX: R06.00 Dyspnea, unspecified (principal); R60.0 Localized edema; I10 Essential (primary) hypertension; E11.9 Type 2 diabetes mellitus without complications; M19.90 Unspecified osteoarthritis, unspecified site; J44.1 Chronic obstructive pulmonary disease with (acute) exacerbation; Z86.73 Personal history of transient ischemic attack (TIA), and cerebral infarction without residual deficits; Z79.899 Other long term (current) drug therapy
CPT/HCPCS: 36415; 71045; 80053; 83880; 84484; 85025; 96374; 99284; J1940